=== PATIENT | female | born 1955 | race Caucasian/White ===

== ENCOUNTER 2016-05-05 11:18 | Inpatient (IN) | payer BC ==
[2016-05-04 13:40] VITALS: BMI 22.0
[~2016-05-05] VITALS: Ht 165.1 cm; Wt 64.0 kg
[2016-05-05] VITALS (24 sets, daily range): BP systolic 113–143; BP diastolic 59–79; PULSE 69–97; RESP 7–18; Ht 165.1 cm; Wt 64.0 kg
[~2016-05-05 11:18] MED LIST: ALPR0.5T6 PO; GABA100C14 PO
[2016-05-05] MEDS: LACTATED RINGER'S 1,000 ML IV* SCH ×2 (12:00→21:58)
[2016-05-05] MEDS: Metronidazole 500 MG in NS 100 ML IVPB SCH ×2 (13:00→13:45)
[2016-05-05] MEDS: CIPROFLOXACIN 400 MG in D5W 200 ML IVPB SCH ×2 (13:00→13:45)
[2016-05-05] MEDS ORDERED: MIDAZOLAM 1 MG/ML 2 ML INJ ONE (13:36)
--- NOTE | 2016-05-05 13:46 | EN ---
Date/Time of Note Date/Time of Note DATE: 05/05/16 TIME: 13:45 Event Note Surgery Surgery Event Note The attached H&P note is now current and updated KUMAR ARENAS MD May 05, 2016 13:46
[2016-05-05] MEDS ORDERED: FENTAnyl 50 MCG/ML VIAL IV PRN (15:00)
[2016-05-05] MEDS ORDERED: ONDANSETRON 4 MG INJ IV PRN ×2 (15:00→19:30)
[2016-05-05] MEDS ORDERED: MEPERIDINE 25 MG INJ IV PRN ×2 (15:00→19:30)
[2016-05-05] MEDS ORDERED: DIPHENHYDRAMINE 50 MG INJ IV PRN ×2 (15:00→19:30)
[2016-05-05] MEDS ORDERED: HYDROmorphONE (0.2 MG/ML) 10ML SYG IV PRN ×4 (15:00→19:30)
[2016-05-05] MEDS ORDERED: morphine 10 MG INJ ONE ×2 (16:57→19:08)
[2016-05-05] MEDS ORDERED: PROPOFOL 20 ML ONE (18:49)
[2016-05-05] MEDS ORDERED: GLYCOPYRROLATE 1 MG INJ ONE (18:49)
[2016-05-05] MEDS ORDERED: ONDANSETRON 4 MG INJ ONE (18:49)
[2016-05-05] MEDS ORDERED: NEOSTIGMINE 3 MG/3 ML SYRINGE ONE (18:49)
[2016-05-05] MEDS ORDERED: LIDOCAINE 2% (SDV) 5 ML INJ ONE (18:49)
[2016-05-05] MEDS ORDERED: ROCURONIUM 50 MG INJ ONE (18:49)
[2016-05-05] MEDS: D5W-0.45 NACL + KCL 10 MEQ 1,000 ML IV SCH ×2 (19:14→23:10)
[2016-05-05] MEDS ORDERED: D5W-0.45 NACL + KCL 10 MEQ 1,000 ML IV SCH (19:14)
[2016-05-05] MEDS ORDERED: D5-NS + KCL 20 MEQ 1,000 ML IV SCH (19:14)
[2016-05-05] MEDS ORDERED: CIPROFLOXACIN 400MG/D5W 200 ML IVPB SCH (19:30)
[2016-05-05] MEDS ORDERED: metroNIDAZOLE 500 MG/NS (PMX) 100 ML IVPB SCH (19:30)
[2016-05-05] MEDS ORDERED: LORAZEPAM 2 MG INJ IV PRN (19:30)
[2016-05-05] MEDS ORDERED: HYDROmorphONE 0.2 MG/ML PCA IV SCH (19:30)
[2016-05-05] MEDS ORDERED: NALOXONE (0.4 MG/ML) INJ IV PRN (19:30)
[2016-05-05] MEDS: FENTAnyl 50 MCG/ML VIAL IV PRN ×3 (19:36→20:44)
[2016-05-05 20:26] LABS: HEMATOCRIT 35.1 % (37.0-47.0); HEMOGLOBIN 11.8 g/dl (12.0-16.0)
[2016-05-05 20:46] LABS: CALCIUM 8.4 mg/dl (8.4-10.2); CREATININE 0.46 mg/dl (0.44-1.00); POTASSIUM 3.7 mmol/L (3.5-5.1)
[2016-05-05 21:06] LABS: ADD UMIC YES; URINE BILIRUBIN (Dip) NEGATIVE (NEGATIVE); URINE BLOOD (Dip) 3+ (NEGATIVE); URINE COLOR LT. YELLOW (YELLOW); URINE KETONES (Dip) NEGATIVE (NEGATIVE); URINE LEUKOCYTE ESTERASE (Dip) NEGATIVE (NEGATIVE); URINE NITRITE (Dip) NEGATIVE (NEGATIVE); URINE TOTAL PROTEIN (Dip) NEGATIVE (NEGATIVE); URINE UROBILINOGEN (Dip) 0.2 E.U./dL (0.1-1.0)
[2016-05-05 21:12] LABS: BACTERIA,URINE RARE; SQUAMOUS EPITHELIAL CELL,UR FEW; URINE RBCS >50 /HPF (0)
[2016-05-06] VITALS: BP 107/64; PULSE 91; RESP 16
[2016-05-06] MEDS: CIPROFLOXACIN 400MG/D5W 200 ML IVPB SCH ×2 (00:57→12:43)
[2016-05-06 01:00] VITALS: BP 122/65; PULSE 89; RESP 16
[2016-05-06] MEDS: metroNIDAZOLE 500 MG/NS (PMX) 100 ML IVPB SCH ×3 (02:14→17:40)
[2016-05-06 05:31] LABS: BASOPHILS % 0.1 % (0.0-2.0); EOSINOPHILS % 0.1 % (0.0-7.0); HEMATOCRIT 32.1 % (37.0-47.0); LYMPHOCYTES # 0.4 10^3/ul (0.8-2.9); LYMPHOCYTES % 6.2 % (15.0-51.0); MEAN CORPUSCULAR HEMOGLOBIN 29.9 pg (29.0-33.0); MEAN CORPUSCULAR HGB CONC 34.4 g/dl (32.0-37.0); MEAN CORPUSCULAR VOLUME 86.8 fl (82.0-101.0); MEAN PLATELET VOLUME 7.9 fl (7.4-10.4); MONOCYTE # 0.4 10^3/ul (0.3-0.9); MONOCYTES % 6.8 % (0.0-11.0); NEUTROPHIL # 5.2 10^3/ul (1.6-7.5); NEUTROPHILS % 86.8 % (39.0-77.0); PLATELET COUNT 273 10^3/UL (140-440); RED CELL DISTRIBUTION WIDTH 12.7 % (11.5-14.5)
[2016-05-06 05:40] LABS: INR 1.05; PROTIME 13.7 Sec (12.2-14.2); PT RATIO 1.1
[2016-05-06 05:43] LABS: POTASSIUM 4.8 mmol/L (3.5-5.1)
[2016-05-06 05:45] LABS: CREATININE 0.55 mg/dl (0.44-1.00)
[2016-05-06 05:46] LABS: CALCIUM 8.1 mg/dl (8.4-10.2)
[2016-05-06 05:50] LABS: CONDITION 1
[2016-05-06] MEDS: PANTOPRAZOLE (EC) 40 MG TAB PO SCH (05:50)
--- NOTE | 2016-05-06 07:55 | PN ---
Date/Time of Note Date/Time of Note DATE: 05/06/16 TIME: 07:48 Assessment/Plan VTE Prophylaxis VTE Prophylaxis Intervention: ambulation, anti-embolic stocking, LMWH Lines/Catheters IV Catheter Type (from Nrs): Peripheral IV Urinary Cath still in place: Yes Reason Cath still needed: other (indicate) Assessment/Plan Chief Complaint/Hosp Course S/P surgery for colostomy, colo-vaginal fistula, diverticular disease, and hernia Problems: Assessment/Plan Clear liquids, Out of bed, lovenox Keep the dozier for fluid monitoring and inability to move well with abdominal binder Subjective 24 Hr Interval Summary Free Text/Dictation The pt is alert and oriented this am. Afebrile w/ VSS POD #1 after a complex abdominal surgery ( 5 hrs) with primary anastomosis and complex hernia repair. She denies nausea Exam/Review of Systems Vital Signs Vitals Vital Signs Date Time Temp Pulse Resp B/P Pulse Ox O2 Delivery O2 Flow Rate FiO2 05/06/16 05:00 16 05/06/16 01:00 98.6 89 122/65 100 Nasal Cannula 05/05/16 21:00 2.0 Intake and Output 05/05/16 05/05/16 05/06/16 15:00 23:00 07:00 Intake Total 300 ml 1200 ml 800 ml Output Total 1100 ml 500 ml Balance 300 ml 100 ml 300 ml Exam Constitutional: alert, oriented Gastrointestinal: soft Additional Comments Abdomen is tender, and binder is intact, Some serous drainage. Quiet. Results Result Diagram: 05/06/16 0432 05/06/16 0431 Results 24 hrs Laboratory Tests Test 05/05/16 18:40 05/05/16 19:45 05/06/16 04:31 05/06/16 04:32 Urine Bacteria RARE Urine Bilirubin NEGATIVE Urine Clarity SLIGHTLY CLOUDY Urine Color LT. YELLOW Urine Glucose 0.25% H Urine Hemoglobin 3+ H Urine Ketones NEGATIVE Urine Leukocyte Esterase NEGATIVE Urine Microscopic RBC >50 Urine Microscopic WBC 0-2 Urine Nitrite NEGATIVE Urine Specific [place] 1.025 Urine Squamous Epithelial Cells FEW Urine Total Protein NEGATIVE Urine Urobilinogen 0.2 E.U./dL Urine pH 6.0 Anion Gap 16 13 Blood Urea Nitrogen 8 7 Calcium Level 8.4 8.1 L Carbon Dioxide Level 23 28 Chloride Level 105 101 Creatinine 0.46 0.55 Glucose Level 143 164 Hematocrit 35.1 L 32.1 L Hemoglobin 11.8 L 11.0 L Platelet Count 309 273 Potassium Level 3.7 4.8 Sodium Level 140 137 INR International Normalized Ratio 1.05 Prothrombin Time 13.7 Prothrombin Time Ratio 1.1 Basophils # 0.0 Basophils % 0.1 Eosinophils # 0.0 Eosinophils % 0.1 Lymphocytes # 0.4 L Lymphocytes % 6.2 L Mean Corpuscular Hemoglobin 29.9 Mean Corpuscular Hemoglobin Concent 34.4 Mean Corpuscular Volume 86.8 Mean Platelet Volume 7.9 Monocytes # 0.4 Monocytes % 6.8 Neutrophils # 5.2 Neutrophils % 86.8 H Nucleated Red Blood Cells # 0.0 Nucleated Red Blood Cells % 0.0 Red Blood Count 3.70 L Red Cell Distribution Width 12.7 White Blood Count 6.0 # Medications Medications Current Medications Diphenhydramine HCl (Benadryl) 25 mg Q6H PRN IV ITCHING; Start 05/05/16 at 19: 30 Ondansetron HCl (Zofran Inj) 4 mg Q6H PRN IV NAUSEA AND/OR VOMITING; Start at 19:30 Pantoprazole 40 mg 40 mg DAILY@06 PO Last administered on 05/06/16 05:50; Admin Dose 40 MG; Start 05/06/16 at 06:00 Potassium Chloride/Dextrose/ Sod Cl (D5-1/2ns + KCl 10 Meq) 1,000 ml @ 125 mls/ hr Q8H IV Last administered on 05/05/16 23:10; Admin Dose 125 MLS/HR; Start at 19:14 Naloxone HCl (Narcan) 0.2 mg Q2M PRN IV RR 8 BREATHS/MIN OR LESS; Start at 19:30 Hydromorphone HCl (Dilaudid USABILITY SPECIALIST) 0.2 mg Q4PCA IV Last administered on 20:25; Admin Dose 6 MG; Start 05/05/16 at 19:30 Lorazepam 0.5 mg 0.5 mg Q6H PRN IV AGITATION; Start 05/05/16 at 19:30 Ciprofloxacin/ Dextrose 200 ml @ 200 mls/hr Q12H IVPB Last administered on 00:57; Admin Dose 200 MLS/HR; Start 05/06/16 at 01:00; Stop 05/06/16 at 13:59 Metronidazole (Flagyl 500 Mg (Pmx)) 100 ml @ 100 mls/hr Q8H IVPB Last administered on 05/06/16t 02:14; Admin Dose 100 MLS/HR; Start 05/06/16 at 02:00 ; Stop 05/06/16 at 18:59 KUMAR ARENAS MD May 06, 2016 07:55
[2016-05-06 09:00] VITALS: BP 115/63; RESP 18
[2016-05-06] MEDS: D5W-0.45 NACL + KCL 10 MEQ 1,000 ML IV SCH ×2 (10:05→21:03)
[2016-05-06] MEDS: HYDROmorphONE 0.2 MG/ML PCA IV SCH (10:32)
[2016-05-06 14:16] LABS: HEMATOCRIT 29.8 % (37.0-47.0); HEMOGLOBIN 10.1 g/dl (12.0-16.0)
[2016-05-06 19:00] VITALS: BP 121/61; RESP 18
[2016-05-07] MEDS: HYDROmorphONE 0.2 MG/ML PCA IV SCH ×2 (00:26→17:11)
[2016-05-07] MEDS: D5W-0.45 NACL + KCL 10 MEQ 1,000 ML IV SCH ×4 (03:14→20:13)
[2016-05-07] MEDS: PANTOPRAZOLE (EC) 40 MG TAB PO SCH (05:27)
[2016-05-07 05:37] LABS: BASOPHILS % 0.3 % (0.0-2.0); EOSINOPHILS % 0.1 % (0.0-7.0); HEMATOCRIT 28.1 % (37.0-47.0); HEMOGLOBIN 9.7 g/dl (12.0-16.0); LYMPHOCYTES # 1.1 10^3/ul (0.8-2.9); LYMPHOCYTES % 10.5 % (15.0-51.0); MEAN CORPUSCULAR HEMOGLOBIN 30.1 pg (29.0-33.0); MEAN CORPUSCULAR HGB CONC 34.5 g/dl (32.0-37.0); MEAN CORPUSCULAR VOLUME 87.1 fl (82.0-101.0); MEAN PLATELET VOLUME 7.9 fl (7.4-10.4); MONOCYTE # 0.7 10^3/ul (0.3-0.9); MONOCYTES % 6.4 % (0.0-11.0); NEUTROPHIL # 8.7 10^3/ul (1.6-7.5); NEUTROPHILS % 82.7 % (39.0-77.0); PLATELET COUNT 247 10^3/UL (140-440); RED BLOOD COUNT 3.22 10^6/ul (4.20-5.40); RED CELL DISTRIBUTION WIDTH 12.9 % (11.5-14.5); UNCORRECTED WBC 10.5 10^3/ul (4.8-10.8); WHITE BLOOD COUNT 10.5 10^3/ul (4.8-10.8)
[2016-05-07 06:05] LABS: POTASSIUM 3.6 mmol/L (3.5-5.1)
[2016-05-07 06:33] LABS: CONDITION 1
[2016-05-07 09:03] VITALS: BP 116/68; RESP 20
--- NOTE | 2016-05-07 10:03 | PN ---
Date/Time of Note Date/Time of Note DATE: 05/07/16 TIME: 09:55 Assessment/Plan VTE Prophylaxis VTE Prophylaxis Intervention: SCD's VTE Contraindication Reason: bleeding Lines/Catheters IV Catheter Type (from Nrsg): Peripheral IV Urinary Cath still in place: Yes Reason Cath still needed: other (indicate) Assessment/Plan Chief Complaint/Hosp Course S/P surgery for colostomy, colo-vaginal fistula, diverticular disease, and hernia Problems: Assessment/Plan Holding lovenox for now, but will check H/H at 1400. Will ambulate carefully today and encouraged more clear liq intake Keep catheter till ambulating better Subjective 24 Hr Interval Summary Free Text/Dictation Pain is better. Complains of some heartburn, but no nausea. No flatus. Tolerating sips of liquids Less drainiage from wound Constitutional: No chills, No diaphoresis, No disoriented, No febrile, No improved, No no complaints, No other, No poor po, No requiring IVF, No requiring O2 Respiratory: No cough, No no complaints, No other, No pain, No pleuritic pain, No shortness of breath, No sputum, No wheezing Exam/Review of Systems Vital Signs Vitals Vital Signs Date Time Temp Pulse Resp B/P Pulse Ox O2 Delivery O2 Flow Rate FiO2 05/07/16 09:03 98.9 102 20 116/68 98 05/07/16 08:00 Nasal Cannula 2.0 Intake and Output 05/06/16 05/06/16 05/07/16 15:00 23:00 07:00 Intake Total 100 ml 1375 ml 2200 ml Output Total 900 ml Balance 100 ml 475 ml 2200 ml Exam Abdomen is soft, but quiet, Occ bowel sound. Incision is dry thia am, and w/o erythema, or edema. Changed dressing and reapplied the binder. Gastrointestinal: No ascites, No bowel sounds, No distended, No firm, No hepatomegaly, No mass, No nl liver, spleen, No non-tender, No other, No rebound or guarding, No soft, No splenomegaly, No surgical scars, No tender Results Result Diagram: 05/07/1643905/07/16439 Results 24 hrs Laboratory Tests Test 05/06/16 14:00 05/07/16 04:40 Hematocrit 29.8 L 28.1 L Hemoglobin 10.1 L 9.7 L Anion Gap 10 Basophils # 0.0 Basophils % 0.3 Carbon Dioxide Level 30 Chloride Level 98 Eosinophils # 0.0 Eosinophils % 0.1 Lymphocytes # 1.1 Lymphocytes % 10.5 L Mean Corpuscular Hemoglobin 30.1 Mean Corpuscular Hemoglobin Concent 34.5 Mean Corpuscular Volume 87.1 Mean Platelet Volume 7.9 Monocytes # 0.7 Monocytes % 6.4 Neutrophils # 8.7 H Neutrophils % 82.7 H Nucleated Red Blood Cells # 0.0 Nucleated Red Blood Cells % 0.0 Platelet Count 247 Potassium Level 3.6 Red Blood Count 3.22 L Red Cell Distribution Width 12.9 Sodium Level 134 L White Blood Count 10.5 # Medications Medications Current Medications Diphenhydramine HCl (Benadryl) 25 mg Q6H PRN IV ITCHING; Start 05/05/16 at 19: 30 Ondansetron HCl (Zofran Inj) 4 mg Q6H PRN IV NAUSEA AND/OR VOMITING; Start at 19:30 Pantoprazole 40 mg 40 mg DAILY@06 PO Last administered on 05/07/16 05:27; Admin Dose 40 MG; Start 05/06/16 at 06:00 Potassium Chloride/Dextrose/ Sod Cl (D5-1/2ns + KCl 10 Meq) 1,000 ml @ 125 mls/ hr Q8H IV Last administered on 05/06/16 21:03; Admin Dose 125 MLS/HR; Start at 19:14 Naloxone HCl (Narcan) 0.2 mg Q2M PRN IV RR 8 BREATHS/MIN OR LESS; Start at 19:30 Lorazepam (Ativan) 0.5 mg Q6H PRN IV AGITATION; Start 05/05/16 at 19:30 Enoxaparin Sodium (Lovenox) 30 mg DAILY SC ; Start 05/06/16 at 16:00; Stop 05/10 at 15:59; Status Future Hold Hydromorphone HCl (Dilaudid PER DIEM PHYSICAL THERAPIST ASSISTANT) 0 MG/HR CONTINUOUS RATE ... Q4PCA IV Last administered on 05/07/16 00:26; Admin Dose 6 MG; Start 05/06/16 at 10:30 KUMAR ARENAS MD May 07, 2016 10:02
[2016-05-07] MEDS: ENOXAPARIN 30 MG/0.3 ML SYG SC SCH (17:12)
[2016-05-07 19:00] VITALS: BP 124/65; RESP 18
[2016-05-07] MEDS: LORAZEPAM 2 MG INJ IV PRN (21:26)
[2016-05-08] MEDS: PANTOPRAZOLE (EC) 40 MG TAB PO SCH (05:23)
[2016-05-08 06:44] LABS: BASOPHILS % 0.4 % (0.0-2.0); EOSINOPHILS % 0.3 % (0.0-7.0); HEMATOCRIT 27.3 % (37.0-47.0); HEMOGLOBIN 9.4 g/dl (12.0-16.0); LYMPHOCYTES # 0.9 10^3/ul (0.8-2.9); MEAN CORPUSCULAR HGB CONC 34.4 g/dl (32.0-37.0); MEAN PLATELET VOLUME 7.9 fl (7.4-10.4); MONOCYTE # 0.5 10^3/ul (0.3-0.9); MONOCYTES % 6.4 % (0.0-11.0); NEUTROPHIL # 7.1 10^3/ul (1.6-7.5); NEUTROPHILS % 81.9 % (39.0-77.0); PLATELET COUNT 277 10^3/UL (140-440); RED BLOOD COUNT 3.13 10^6/ul (4.20-5.40); RED CELL DISTRIBUTION WIDTH 13.2 % (11.5-14.5); UNCORRECTED WBC 8.6 10^3/ul (4.8-10.8); WHITE BLOOD COUNT 8.6 10^3/ul (4.8-10.8)
[2016-05-08 06:59] LABS: POTASSIUM 3.4 mmol/L (3.5-5.1)
[2016-05-08 07:03] LABS: CONDITION 1
[2016-05-08 07:43] VITALS: BP 124/76; RESP 19
--- NOTE | 2016-05-08 08:49 | PN ---
Date/Time of Note Date/Time of Note DATE: 05/08/16 TIME: 08:43 Assessment/Plan VTE Prophylaxis VTE Prophylaxis Intervention: ambulation, LMWH, SCD's Lines/Catheters IV Catheter Type (from Nrsg): Peripheral IV Urinary Cath still in place: No Assessment/Plan Chief Complaint/Hosp Course 61YO Woman h/o diverticulitis, multiple operations now s/p takedown of transverse loop colostomy, reversal of Rubi, mesh repair of hernia now POD3. Doing OK, tolerating some clears, ambulating with assistance, voiding on her own. Having abd pain, reasonably controlled with WOUND SPECIALIST. No F/C/CP/SOB. Mildly tachy, nursing reports desat to 92-94, improved to 100 with 2L NC. Tachy likely due to anemia/pain, desat likely due to narcotics. Will get LEVD. Start Toradol for pain. Continue ambulation, SCD/Lovenox for DVT PPX, continue PT, wound care with gauze and abd pad. D/W Dr. Prakash. Problems: Subjective 24 Hr Interval Summary Constitutional: other (Pt reports some abd pain, some nausea overnight but OK now, tolerating a little clears, been OOB, no BM/F) Respiratory: no complaints Cardiovascular: no complaints Gastrointestinal: pain Exam/Review of Systems Vital Signs Vitals Vital Signs Date Time Temp Pulse Resp B/P Pulse Ox O2 Delivery O2 Flow Rate FiO2 05/08/16 07:43 98.0 72 19 124/76 94 05/07/16 21:39 Nasal Cannula 2.0 Intake and Output 05/07/16 05/07/16 05/08/16 15:00 23:00 07:00 Intake Total 2630 ml 1900 ml Output Total 1800 ml Balance 830 ml 1900 ml Exam Constitutional: alert, oriented Respiratory: clear to auscultation Cardiovascular: regular rate and rhythm Gastrointestinal: soft (Appropriately TTP, wound C/D/I, mild dessication in midline, no signs of dehiscence/infection) Results Result Diagram: 05/08/16 0500 05/08/16 0440 Results 24 hrs Laboratory Tests Test 05/07/16 13:50 05/08/16 04:40 05/08/16 05:00 Hematocrit 26.9 L 27.3 L Anion Gap 11 Carbon Dioxide Level 32 H Chloride Level 98 Potassium Level 3.4 L Sodium Level 138 Basophils # 0.0 Basophils % 0.4 Eosinophils # 0.0 Eosinophils % 0.3 Hemoglobin 9.4 L Lymphocytes # 0.9 Lymphocytes % 11.0 L Mean Corpuscular Hemoglobin 30.0 Mean Corpuscular Hemoglobin Concent 34.4 Mean Corpuscular Volume 87.0 Mean Platelet Volume 7.9 Monocytes # 0.5 Monocytes % 6.4 Neutrophils # 7.1 Neutrophils % 81.9 H Nucleated Red Blood Cells # 0.0 Nucleated Red Blood Cells % 0.0 Platelet Count 277 Red Blood Count 3.13 L Red Cell Distribution Width 13.2 White Blood Count 8.6 Medications Medications Current Medications Diphenhydramine HCl (Benadryl) 25 mg Q6H PRN IV ITCHING; Start 05/05/16 at 19: 30 Ondansetron HCl (Zofran Inj) 4 mg Q6H PRN IV NAUSEA AND/OR VOMITING; Start at 19:30 Pantoprazole 40 mg 40 mg DAILY@06 PO Last administered on 05/08/16 05:23; Admin Dose 40 MG; Start 05/06/16 at 06:00 Potassium Chloride/Dextrose/ Sod Cl (D5-1/2ns + KCl 10 Meq) 1,000 ml @ 125 mls/ hr Q8H IV Last administered on 05/07/16 20:13; Admin Dose 125 MLS/HR; Start at 19:14 Naloxone HCl (Narcan) 0.2 mg Q2M PRN IV RR 8 BREATHS/MIN OR LESS; Start at 19:30 Lorazepam (Ativan) 0.5 mg Q6H PRN IV AGITATION; Start 05/05/16 at 19:30 Enoxaparin Sodium (Lovenox) 30 mg DAILY SC Last administered on 05/07/16 17:12 ; Admin Dose 30 MG; Start 05/06/16 at 16:00; Stop 05/10/16 at 15:59; Status Future hold Hydromorphone HCl (Dilaudid WOUND SPECIALIST) 0 MG/HR CONTINUOUS RATE ... Q4PCA IV Last administered on 05/07/16 17:11; Admin Dose 6 MG; Start 05/06/16 at 10:30 ROB NGUYEN M.D. May 08, 2016 08:49
[2016-05-08 09:41] LABS: POTASSIUM 3.8 mmol/L (3.5-5.1)
[2016-05-08 09:43] LABS: CREATININE 0.5 mg/dl (0.44-1.00)
[2016-05-08 09:44] LABS: CALCIUM 8.7 mg/dl (8.4-10.2)
--- NOTE | 2016-05-08 10:15 | RADRPT ---
PROCEDURE: US DVT. CLINICAL INDICATION: Evaluate both lower extremities for deep venous thrombosis.. TECHNIQUE: Multiple longitudinal and transverse images of the bilateral lower extremity veins were obtained with valdivia scale and color Doppler imaging. 2D grayscale measurements with compression, co nelly Doppler flow, and augmentation was performed. The calf veins were interrogated as well. COMPARISON: No prior studies are available for comparison. FINDINGS: The bilateral common femoral, superficial femoral and popliteal veins are normally compressible thro ughout. Color flow demonstrates normal filling of the vessel. Normal waveforms are visualized and there is normal response to augmentation. The calf veins are visualized and are equally unremarkabl e. IMPRESSION: 1. No evidence of a deep vein thrombosis involving either lower extremity. RPTAT: [facility] Physician Meghan Date Time Electronically viewed and signed by Physician Meghan on 05/08/2016 10:15 /
[2016-05-08] MEDS: D5W-0.45 NACL + KCL 10 MEQ 1,000 ML IV SCH ×3 (11:14→22:35)
[2016-05-08] MEDS: ONDANSETRON 4 MG INJ IV PRN (12:04)
[2016-05-08] MEDS: KETOROLAC 15 MG INJ IV PRN ×2 (13:09→18:33)
[2016-05-08 19:30] VITALS: BP 123/77; RESP 18
[2016-05-09] MEDS: HYDROmorphONE 0.2 MG/ML PCA IV SCH (01:42)
[2016-05-09] MEDS: PANTOPRAZOLE (EC) 40 MG TAB PO SCH (06:33)
[2016-05-09 06:37] LABS: BASOPHILS % 0.1 % (0.0-2.0); EOSINOPHILS % 0.6 % (0.0-7.0); HEMOGLOBIN 9.4 g/dl (12.0-16.0); LYMPHOCYTES # 0.7 10^3/ul (0.8-2.9); LYMPHOCYTES % 10.6 % (15.0-51.0); MEAN CORPUSCULAR HEMOGLOBIN 30.7 pg (29.0-33.0); MEAN CORPUSCULAR HGB CONC 36.1 g/dl (32.0-37.0); MEAN CORPUSCULAR VOLUME 84.9 fl (82.0-101.0); MEAN PLATELET VOLUME 7.6 fl (7.4-10.4); MONOCYTE # 0.5 10^3/ul (0.3-0.9); MONOCYTES % 7.8 % (0.0-11.0); NEUTROPHIL # 5.3 10^3/ul (1.6-7.5); NEUTROPHILS % 80.9 % (39.0-77.0); PLATELET COUNT 334 10^3/UL (140-440); RED BLOOD COUNT 3.06 10^6/ul (4.20-5.40); RED CELL DISTRIBUTION WIDTH 12.9 % (11.5-14.5); UNCORRECTED WBC 6.6 10^3/ul (4.8-10.8); WHITE BLOOD COUNT 6.6 10^3/ul (4.8-10.8)
[2016-05-09 06:40] LABS: POTASSIUM 3.7 mmol/L (3.5-5.1)
[2016-05-09] MEDS: ONDANSETRON 4 MG INJ IV PRN ×2 (06:45→16:54)
[2016-05-09] MEDS: D5W-0.45 NACL + KCL 10 MEQ 1,000 ML IV SCH (06:46)
[2016-05-09 06:48] LABS: POTASSIUM 3.7 mmol/L (3.5-5.1)
[2016-05-09 06:51] LABS: CREATININE 0.54 mg/dl (0.44-1.00)
[2016-05-09 06:52] LABS: CALCIUM 8.2 mg/dl (8.4-10.2)
[2016-05-09 06:56] LABS: CONDITION 1
[2016-05-09 07:22] VITALS: BP 135/73; RESP 20
[2016-05-09] MEDS: ENOXAPARIN 30 MG/0.3 ML SYG SC SCH (08:20)
[2016-05-09] MEDS: KETOROLAC 15 MG INJ IV PRN ×3 (10:31→22:26)
--- NOTE | 2016-05-09 11:27 | PN ---
Date/Time of Note Date/Time of Note DATE: 05/09/16 TIME: 11:25 Assessment/Plan VTE Prophylaxis VTE Prophylaxis Intervention: ambulation, LMWH Lines/Catheters IV Catheter Type (from Nrs): Peripheral IV Urinary Cath still in place: No Assessment/Plan Chief Complaint/Hosp Course S/P surgery for colostomy, colo-vaginal fistula, diverticular disease, and hernia Problems: Assessment/Plan Will DC FURNITURE SANDER and start oral pain meds. Increase ambulation, reduce IV fluids Subjective 24 Hr Interval Summary Free Text/Dictation The pt is stable, both vitals, CBC. She complains of some nausea, likely due to FURNITURE SANDER. Has passed some flatus. Tolerating some liquids Exam/Review of Systems Vital Signs Vitals Vital Signs Date Time Temp Pulse Resp B/P Pulse Ox O2 Delivery O2 Flow Rate FiO2 05/09/16 09:00 16 05/09/16 08:21 98.4 05/09/16 07:22 89 135/73 95 05/08/16 20:50 Nasal Cannula 2.0 Intake and Output 05/08/16 05/08/16 05/09/16 15:00 23:00 07:00 Intake Total 1770 ml 420 ml Output Total 750 ml 850 ml Balance 1020 ml -430 ml Results Result Diagram: 05/09/16 0535 05/09/16 0535 Results 24 hrs Laboratory Tests Test 05/09/16 05:35 Anion Gap 10 Basophils # 0.0 Basophils % 0.1 Blood Urea Nitrogen 7 Calcium Level 8.2 L Carbon Dioxide Level 31 Chloride Level 99 Creatinine 0.54 Eosinophils # 0.0 Eosinophils % 0.6 Glucose Level 153 Hematocrit 26.0 L Hemoglobin 9.4 L Lymphocytes # 0.7 L Lymphocytes % 10.6 L Mean Corpuscular Hemoglobin 30.7 Mean Corpuscular Hemoglobin Concent 36.1 Mean Corpuscular Volume 84.9 Mean Platelet Volume 7.6 Monocytes # 0.5 Monocytes % 7.8 Neutrophils # 5.3 Neutrophils % 80.9 H Nucleated Red Blood Cells # 0.0 Nucleated Red Blood Cells % 0.0 Platelet Count 334 # Potassium Level 3.7 Red Blood Count 3.06 L Red Cell Distribution Width 12.9 Sodium Level 136 White Blood Count 6.6 # Medications Medications Current Medications Diphenhydramine HCl (Benadryl) 25 mg Q6H PRN IV ITCHING; Start 05/05/16 at 19: 30 Ondansetron HCl (Zofran Inj) 4 mg Q6H PRN IV NAUSEA AND/OR VOMITING Last administered on 05/09/16 06:45; Admin Dose 4 MG; Start 05/05/16 at 19:30 Pantoprazole 40 mg 40 mg DAILY@06 PO Last administered on 05/09/16 06:33; Admin Dose 40 MG; Start 05/06/16 at 06:00 Potassium Chloride/Dextrose/ Sod Cl (D5-1/2ns + KCl 10 Meq) 1,000 ml @ 125 mls/ hr Q8H IV Last administered on 05/09/16 06:46; Admin Dose 125 MLS/HR; Start at 19:14 Naloxone HCl (Narcan) 0.2 mg Q2M PRN IV RR 8 BREATHS/MIN OR LESS; Start at 19:30 Lorazepam (Ativan) 0.5 mg Q6H PRN IV AGITATION; Start 05/05/16 at 19:30 Enoxaparin Sodium (Lovenox) 30 mg DAILY SC Last administered on 05/09/16 08:20 ; Admin Dose 30 MG; Start 05/06/16 at 16:00; Stop 05/10/16 at 15:59; Status Future hold Ketorolac Tromethamine (Toradol) 15 mg Q6H PRN IV PAIN Last administered on 10:31; Admin Dose 15 MG; Start 05/08/16 at 09:00; Stop 05/11/16 at 08:59 Oxycodone/ Acetaminophen (Percocet (5/ 325)) 1 tab Q4H PRN PO PAIN; Start 05/09 at 11:30; Status UNV KUMAR ARENAS MD May 09, 2016 11:27
[2016-05-09] MEDS: OXYCODONE/ACETAMINOPHEN (5/325) TAB PO PRN ×3 (11:34→19:35)
[2016-05-09] MEDS: POTASSIUM CHLORIDE 10 MEQ in SOD CHLORIDE 0.45% 1,000 ML IV SCH (12:12)
[2016-05-09 19:20] VITALS: BP 126/74; RESP 20
[2016-05-09] MEDS: METOCLOPRAMIDE 10 MG INJ IV PRN (20:36)
[2016-05-09] MEDS: HYDROmorphONE 1 MG/ML SYG IV PRN (20:58)
[2016-05-10] MEDS: POTASSIUM CHLORIDE 10 MEQ in SOD CHLORIDE 0.45% 1,000 ML IV SCH ×2 (01:39→17:21)
[2016-05-10] MEDS: PANTOPRAZOLE (EC) 40 MG TAB PO SCH (05:33)
[2016-05-10] MEDS: KETOROLAC 15 MG INJ IV PRN ×2 (05:33→14:20)
[2016-05-10 07:25] VITALS: BP 117/64; RESP 20
[2016-05-10] MEDS: OXYCODONE/ACETAMINOPHEN (5/325) TAB PO PRN ×3 (07:58→17:57)
[2016-05-10] MEDS: ENOXAPARIN 30 MG/0.3 ML SYG SC SCH (09:30)
[2016-05-10] MEDS: HYDROmorphONE 1 MG/ML SYG IV PRN ×2 (09:56→19:34)
--- NOTE | 2016-05-10 13:16 | PN ---
Date/Time of Note Date/Time of Note DATE: 05/10/16 TIME: 13:08 Assessment/Plan VTE Prophylaxis VTE Prophylaxis Intervention: ambulation, anti-embolic stocking, LMWH Lines/Catheters IV Catheter Type (from Nrs): Peripheral IV Urinary Cath still in place: No Assessment/Plan Chief Complaint/Hosp Course S/P surgery for colostomy, colo-vaginal fistula, diverticular disease, and hernia Problems: Assessment/Plan The pt is slowly resolving her ileus. We will increase the ambulation and add some soft food Subjective 24 Hr Interval Summary Free Text/Dictation The pt is now POD #5, is afebrile, passing a little gas. She tolerates small volumes of full liquids, She is ambulating well She still c/o [pain but the pain meds are working. Nausea is better controlled on Regaln Skin: No bruising, No laceration, No no complaints, No other, No pruritis, No rash, No skin lesions Exam/Review of Systems Vital Signs Vitals Vital Signs Date Time Temp Pulse Resp B/P Pulse Ox O2 Delivery O2 Flow Rate FiO2 05/10/16 07:25 98.9 90 20 117/64 95 05/08/16 20:50 Nasal Cannula 2.0 Intake and Output 05/09/16 05/09/16 05/10/16 15:00 23:00 07:00 Intake Total 2495 ml 720 ml Balance 2495 ml 720 ml Exam Constitutional: alert, oriented Gastrointestinal: bowel sounds (a few bowel sounds), soft, surgical scars, tender (appropriate) Neurological: LEARNING SUPPORT SERVICES DIRECTOR II-XII intact Additional Comments Incision is clean and w/o erythema. There is a small amt of skin necrosis in the center Results Result Diagram: 05/09/16 0535 05/09/16 0535 Medications Medications Current Medications Diphenhydramine HCl (Benadryl) 25 mg Q6H PRN IV ITCHING; Start 05/05/16 at 19: 30 Ondansetron HCl (Zofran Inj) 4 mg Q6H PRN IV NAUSEA AND/OR VOMITING Last administered on 05/09/16 16:54; Admin Dose 4 MG; Start 05/05/16 at 19:30 Pantoprazole (Protonix Tab) 40 mg DAILY@06 PO Last administered on 05/10/16 05 :33; Admin Dose 40 MG; Start 05/06/16 at 06:00 Naloxone HCl (Narcan) 0.2 mg Q2M PRN IV RR 8 BREATHS/MIN OR LESS; Start at 19:30 Lorazepam (Ativan) 0.5 mg Q6H PRN IV AGITATION; Start 05/05/16 at 19:30 Enoxaparin Sodium (Lovenox) 30 mg DAILY SC Last administered on 05/10/16 09:30 ; Admin Dose 30 MG; Start 05/06/16 at 16:00; Stop 05/10/16 at 15:59; Status Future hold Ketorolac Tromethamine (Toradol) 15 mg Q6H PRN IV PAIN Last administered on 05:33; Admin Dose 15 MG; Start 05/08/16 at 09:00; Stop 05/11/16 at 08:59 Oxycodone/ Acetaminophen 1 tab 1 tab Q4H PRN PO PAIN Last administered on 13:06; Admin Dose 1 TAB; Start 05/09/16 at 11:30 Potassium Chloride/Sodium Chloride (KCl/1/2 NS) 1,005 ml @ 75 mls/hr [id number] IV Last administered on 05/10/16 01:39; Admin Dose 75 MLS/HR; Start 05/09/16 at 12:30 Metoclopramide HCl (Reglan) 10 mg Q6H PRN IV NAUSEA Last administered on 20:36; Admin Dose 10 MG; Start 05/09/16 at 20:30 Hydromorphone HCl (Dilaudid) 0.4 mg Q6H PRN IV PAIN Last administered on 09:56; Admin Dose 0.4 MG; Start 05/09/16 at 20:30 KUMAR ARENAS MD May 10, 2016 13:15
[2016-05-10] MEDS: METOCLOPRAMIDE 10 MG INJ IV PRN (13:55)
[2016-05-10] MEDS: ONDANSETRON 4 MG INJ IV PRN ×2 (18:05→22:29)
[2016-05-10 20:56] VITALS: BP 133/75; RESP 17
[2016-05-11] MEDS: KETOROLAC 15 MG INJ IV PRN (00:07)
[2016-05-11] MEDS: LORAZEPAM 2 MG INJ IV PRN (01:13)
[2016-05-11 05:23] LABS: POTASSIUM 3.5 mmol/L (3.5-5.1)
[2016-05-11 05:26] LABS: BASOPHILS % 0.3 % (0.0-2.0); EOSINOPHILS # 0.1 10^3/ul (0.0-0.5); EOSINOPHILS % 1.5 % (0.0-7.0); HEMATOCRIT 27.3 % (37.0-47.0); HEMOGLOBIN 9.6 g/dl (12.0-16.0); LYMPHOCYTES # 1.1 10^3/ul (0.8-2.9); LYMPHOCYTES % 14.5 % (15.0-51.0); MEAN CORPUSCULAR HEMOGLOBIN 29.7 pg (29.0-33.0); MEAN CORPUSCULAR HGB CONC 35.1 g/dl (32.0-37.0); MEAN CORPUSCULAR VOLUME 84.6 fl (82.0-101.0); MEAN PLATELET VOLUME 7.3 fl (7.4-10.4); MONOCYTE # 0.8 10^3/ul (0.3-0.9); MONOCYTES % 10.3 % (0.0-11.0); NEUTROPHIL # 5.4 10^3/ul (1.6-7.5); NEUTROPHILS % 73.4 % (39.0-77.0); PLATELET COUNT 433 10^3/UL (140-440); RED BLOOD COUNT 3.22 10^6/ul (4.20-5.40); RED CELL DISTRIBUTION WIDTH 12.7 % (11.5-14.5); UNCORRECTED WBC 7.3 10^3/ul (4.8-10.8); WHITE BLOOD COUNT 7.3 10^3/ul (4.8-10.8)
[2016-05-11 05:54] LABS: CONDITION 1
[2016-05-11] MEDS: POTASSIUM CHLORIDE 10 MEQ in SOD CHLORIDE 0.45% 1,000 ML IV SCH ×2 (06:05→18:59)
[2016-05-11] MEDS: PANTOPRAZOLE (EC) 40 MG TAB PO SCH (06:05)
[2016-05-11] MEDS: HYDROmorphONE 1 MG/ML SYG IV PRN ×3 (06:06→18:45)
[2016-05-11 07:45] VITALS: BP 130/78; RESP 20
[2016-05-11] MEDS: OXYCODONE/ACETAMINOPHEN (5/325) TAB PO PRN ×4 (10:25→23:50)
--- NOTE | 2016-05-11 13:28 | PN ---
Date/Time of Note Date/Time of Note DATE: 05/11/16 TIME: 13:19 Assessment/Plan VTE Prophylaxis VTE Prophylaxis Intervention: ambulation, LMWH Lines/Catheters IV Catheter Type (from Nrs): Peripheral IV Urinary Cath still in place: No Assessment/Plan Chief Complaint/Hosp Course S/P surgery for colostomy, colo-vaginal fistula, diverticular disease, and hernia Problems: Assessment/Plan Advised that the pt avoid carbonation. Will add Miralax Subjective 24 Hr Interval Summary Free Text/Dictation POD #6. Pt is alert and oriented. VSS. Passing a little mor flatus. and poss some liquid. Still complaining of abdominal pain w/ cramps and muscle pain. Complains also of nausea. Heartburn w/ carbonation and some juice. Labs are normal. Gastrointestinal: decreased appetite, flatus, nausea, other (complains of cramps), pain Genitourinary: no complaints Exam/Review of Systems Vital Signs Vitals Vital Signs Date Time Temp Pulse Resp B/P Pulse Ox O2 Delivery O2 Flow Rate FiO2 05/11/16 07:45 98.9 101 20 130/78 95 05/10/16 08:00 Nasal Cannula 2.0 Intake and Output 05/10/16 05/10/16 05/11/16 15:00 23:00 07:00 Intake Total 1340 ml 1250 ml Balance 1340 ml 1250 ml Results Result Diagram: 05/11/16 0430 05/11/16 0430 Results 24 hrs Laboratory Tests Test 05/11/16 04:30 Anion Gap 14 Basophils # 0.0 Basophils % 0.3 Blood Morphology Comment Carbon Dioxide Level 29 Chloride Level 99 Eosinophils # 0.1 Eosinophils % 1.5 Hematocrit 27.3 L Hemoglobin 9.6 L Lymphocytes # 1.1 Lymphocytes % 14.5 L Mean Corpuscular Hemoglobin 29.7 Mean Corpuscular Hemoglobin Concent 35.1 Mean Corpuscular Volume 84.6 Mean Platelet Volume 7.3 L Monocytes # 0.8 Monocytes % 10.3 Neutrophils # 5.4 Neutrophils % 73.4 Nucleated Red Blood Cells # 0.0 Nucleated Red Blood Cells % 0.0 Platelet Count 433 # Potassium Level 3.5 Red Blood Count 3.22 L Red Cell Distribution Width 12.7 Sodium Level 138 White Blood Count 7.3 Medications Medications Current Medications Diphenhydramine HCl (Benadryl) 25 mg Q6H PRN IV ITCHING; Start 05/05/16 at 19: 30 Ondansetron HCl (Zofran Inj) 4 mg Q6H PRN IV NAUSEA AND/OR VOMITING Last administered on 05/10/16 22:29; Admin Dose 4 MG; Start 05/05/16 at 19:30 Pantoprazole (Protonix Tab) 40 mg DAILY@06 PO Last administered on 05/11/16 06 :05; Admin Dose 40 MG; Start 05/06/16 at 06:00 Naloxone HCl (Narcan) 0.2 mg Q2M PRN IV RR 8 BREATHS/MIN OR LESS; Start at 19:30 Lorazepam (Ativan) 0.5 mg Q6H PRN IV AGITATION; Start 05/05/16 at 19:30 Oxycodone/ Acetaminophen 1 tab 1 tab Q4H PRN PO PAIN Last administered on 10:25; Admin Dose 1 TAB; Start 05/09/16 at 11:30 Potassium Chloride/Sodium Chloride (KCl/1/2 NS) 1,005 ml @ 75 mls/hr [id number] IV Last administered on 05/11/16 06:05; Admin Dose 75 MLS/HR; Start 05/09/16 at 12:30 Metoclopramide HCl (Reglan) 10 mg Q6H PRN IV NAUSEA Last administered on 13:55; Admin Dose 10 MG; Start 05/09/16 at 20:30 Hydromorphone HCl (Dilaudid) 0.4 mg Q6H PRN IV PAIN Last administered on 11:48; Admin Dose 0.4 MG; Start 05/09/16 at 20:30 KUMAR ARENAS MD May 11, 2016 13:28
[2016-05-11] MEDS: POLYETHYLENE GLYCOL 17 GM PACKET GTB SCH (14:35)
[2016-05-11] MEDS: ONDANSETRON 4 MG INJ IV PRN (14:38)
[2016-05-11] MEDS: METOCLOPRAMIDE 10 MG INJ IV PRN (18:59)
[2016-05-11 19:35] VITALS: BP 137/77; RESP 19
[2016-05-12] MEDS: HYDROmorphONE 1 MG/ML SYG IV PRN ×4 (00:58→20:13)
[2016-05-12] MEDS: METOCLOPRAMIDE 10 MG INJ IV PRN ×3 (01:02→14:20)
[2016-05-12] MEDS: PANTOPRAZOLE (EC) 40 MG TAB PO SCH (05:38)
[2016-05-12 05:47] LABS: POTASSIUM 3.4 mmol/L (3.5-5.1)
[2016-05-12 05:49] LABS: ALBUMIN/GLOBULIN RATIO 1.03; BILIRUBIN,INDIRECT 0.2 mg/dl (0-1.1); BILIRUBIN,TOTAL 0.2 mg/dl (0.2-1.3); CREATININE 0.47 mg/dl (0.44-1.00); TOTAL PROTEIN 5.9 g/dl (6.1-8.1)
[2016-05-12 05:50] LABS: CALCIUM 8.5 mg/dl (8.4-10.2)
[2016-05-12 06:18] LABS: BASOPHILS % 0.1 % (0.0-2.0); EOSINOPHILS # 0.1 10^3/ul (0.0-0.5); EOSINOPHILS % 1.2 % (0.0-7.0); HEMATOCRIT 25.7 % (37.0-47.0); HEMOGLOBIN 8.8 g/dl (12.0-16.0); LYMPHOCYTES % 11.5 % (15.0-51.0); MEAN CORPUSCULAR HEMOGLOBIN 29.8 pg (29.0-33.0); MEAN CORPUSCULAR HGB CONC 34.2 g/dl (32.0-37.0); MEAN PLATELET VOLUME 7.3 fl (7.4-10.4); MONOCYTE # 0.8 10^3/ul (0.3-0.9); MONOCYTES % 10.1 % (0.0-11.0); NEUTROPHIL # 6.5 10^3/ul (1.6-7.5); NEUTROPHILS % 77.1 % (39.0-77.0); PLATELET COUNT 432 10^3/UL (140-440); RED BLOOD COUNT 2.96 10^6/ul (4.20-5.40); RED CELL DISTRIBUTION WIDTH 13.1 % (11.5-14.5); UNCORRECTED WBC 8.4 10^3/ul (4.8-10.8); WHITE BLOOD COUNT 8.4 10^3/ul (4.8-10.8)
[2016-05-12 06:52] LABS: CONDITION 1
[2016-05-12 07:19] VITALS: BP 121/60; RESP 19
[2016-05-12] MEDS: POLYETHYLENE GLYCOL 17 GM PACKET GTB SCH (08:18)
[2016-05-12] MEDS: POTASSIUM CHLORIDE 10 MEQ in SOD CHLORIDE 0.45% 1,000 ML IV SCH (08:18)
[2016-05-12] MEDS: OXYCODONE/ACETAMINOPHEN (5/325) TAB PO PRN ×2 (08:42→13:07)
[2016-05-12] MEDS: ONDANSETRON 4 MG INJ IV PRN (08:47)
[2016-05-12] MEDS ORDERED: POTASSIUM CHLORIDE 10 MEQ in SOD CHLORIDE 0.9% 100 ML IV SCH (12:30)
--- NOTE | 2016-05-12 13:04 | OPR ---
DATE OF OPERATION: 05/05/2016 INDICATIONS: The patient is a 61-year-old female who presented to my office a month ago. She has had 5 prior abdominal surgeries, all for diverticulitis. This has been over the last several years. The first 3 were performed in [place] and the last 2 somewhere here in [place]. At the time of me meeting her, she had a large midline abdominal hernia because of her multiple surgeries and a postoperative wound infection. She had a colostomy in the left upper quadrant. There was a substantial history of diverticulitis. She also had old studies which revealed that she had a colovaginal fistula at one point in time and another one that showed one without. The patient has voluntarily lost 30 to 35 pounds in the last year at the request of another physician before he would operate on her. She has a rectal stump that I evaluated in the office, which was approximately 13 cm in length. It is my opinion that the patient has had diverticulitis and has had some type of resection. She had an attempted reanastomosis which leaked and she had another attempted reanastomosis, which failed in some way with a fistula, because she described having stool from her vagina. She has also had another surgery for bleeding. At this time, she presents to the operating room for evaluation with exploratory laparotomy with the attempt to restore intestinal continuity or perhaps to remove for residual disease. I have discussed all the potential options with the patient including the possibility of waking up with an end colostomy, a possible loop ileostomy. She understands and wishes to proceed. PREOPERATIVE DIAGNOSIS: Colostomy diversion after a diverticular operation with large midline abdominal hernia. 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 PROCEDURE: 1. Exploratory laparotomy. 2. Extensive lysis of adhesions (2 hours). 3. Resection of colostomy, distal sigmoid colon and rectosigmoid colon 4. Repair small bowel enterotomies x 4 5. Left ureterolysis. 6. Primary stapled colorectal anastomosis. 7. Incidental appendectomy. 8. Complex hernia repair utilizing ACell tissue implant. 9. Proctosigmoidoscopy SURGEON: Dr. Luther Prakash. CAR REPAIRER HELPER: Dr. Candelario Macdonald. ANESTHESIA: General endotracheal anesthesia administered by Dr. Boyd. FLUIDS: 3500 mL of crystalloid. ESTIMATED BLOOD LOSS: 200 mL. DRAINS: None. TISSUE IMPLANT: ACell into the fascial plane.. COMPLICATIONS: None. FINDINGS AND TECHNIQUE: The patient was brought to the operating room and following successful induction of anesthesia, was carefully placed in the supine lithotomy position utilizing the Chavez stirrups. All pressure points were carefully padded. The patient's abdomen and perineum were prepped with Betadine solution. Prior to preparation, her colostomy which was located in the left abdomen was closed with a running 3-0 chromic suture. She was then draped with sterile towels and drapes. Next, using a #10 scalpel blade, a low midline incision was made from the symphysis pubis up to the umbilicus which is surgically absent. The incision was divided down through the skin and we immediately encountered adhesed intestine. We carefully lysed the adhesions between the abdominal skin and the bowel itself, clearing this all the way back to the fascial edge. The fascial edge was approximately 3 fingerbreadths on either side of the midline incision. We continued clearing these intraabdominal adhesions from the anterior abdominal as well, circumferentially. Following this, a large Mayo self- retaining wound retractor was placed into the wound. Next, a very comprehensive enterolysis between all the loops of small intestine was performed , lysing all of the adhesions between the small bowel from the ligament of Treitz all the way up to the proximal jejunum. This, combined with entering the abdomen, was a very tedious and complex process which required 2 hours by the clock. During this time period, there were approximately 4 enterotomies. Each of these was repaired in 2 layers with an inner layer of running 3-0 Vicryl suture followed by a second layer of interrupted sews of 3-0 silk in a Lembert style fashion. As we cleared out all of the small intestine and identified the anatomy, it became apparent that the patient's colostomy was not an end colostomy, but was indeed a loop colostomy. It was from the mid transverse colon. Distal to the colostomy we took the transverse colon up to the splenic flexure which was taken down under direct observation by taking down the splenic flexure and its attachments both to the lateral abdominal wall and inferior to the spleen, so that it was cleared away from the splenic hilum. We continued the dissection distally down onto the descending colon and down to a residual of the sigmoid colon where it was adherent to the vagina proper. Here we divided the bowel from the vagina. The fistula into the vagina was not large enough to require a direct repair and it was left alone. We then went to the pelvis and we identified the rectosigmoid and the rectum. This was carefully dissected. It was adherent to the left side of the pelvis and it was carefully mobilized to the midline. As we continued the dissection medially, we were carefully looking for the ureter. We went up proximally and found the ureter near the bifurcation of the iliac arteries and found it there. We then followed it distally where it was adherent to the sacrum in the midline as well as the mesentery of the rectosigmoid and rectum. Here it required release from all of the fibrotic reaction from the previous diverticular disease and we carried it down in a distal dissection until it was free of the intestine. As we mobilized the rectum circumferentially, we encountered some diverticular disease in the proximal portion of the rectosigmoid. I then divided the rectosigmoid from the rectum at a point where the bowel was normal in appearance and texture. This was accomplished with the firing of the curved contour stapler. It was sent as a specimen. The sigmoid colon was then carefully evaluated. Prior to resecting this, however, I took down the colostomy by doing a circumferential dissection from the skin through the abdominal wall and bringing it down into the abdominal cavity proper. The patient had an extremely mobile transverse colon. The lumen of the transverse colon, especially in the mid portion of normal caliber. I was able to resect the colostomy with the firing of the TREMAINE stapler, and then oversewed the staple line with interrupted sews of 2-0 silk suture. This left us and intact piece of colon from the cecum all the way down to the proximal sigmoid colon. As there was still some diverticular disease in this portion, I resected an additional 6 to 8 cm of colon back to healthy-appearing bowel by dividing it with the stapler. I had enough bowel to reach well into the pelvis, so plan to a primary stapled anastomosis. The sigmoid colon; however, was small in caliber. I removed the staple line by placing the automatic pursestring stapler across this and resected the staple line. I placed the anvil of a #25 ILS end-to-waxer tender within the lumen and secured it with the 2-0 Prolene. The speech pathology assistant then went to the perineal position and after carefully dilating the anal canal past of the barrell of the 25 ILS stapler proximally. The trocar was passed through the end of the rectum and the 2 ends were aligned, assembled and docked. The stapler was fired resulting in 2 intact colorectal donuts. The anastomosis was then visualized by rigid proctoscopy. The anastomosis was measured at approximately 12 cm, was intact and nonbleeding. Next, we filled the pelvis with fluid and with the anastomosis submerged and the proximal bowel occluded. insufflated the rectum and colorectal anastomosis. There was no air leak. The lumen was then deflated and the proctoscope removed. Gown and gloves change ensued. We then carefully evaluated the rest of the abdomen, running the bowel from the ileocecal valve up to nearly the ligament of Treitz. We checked all of our repairs and they were all intact. We then arranged the small intestine into a more normal anatomic arrangement. The bowel of the large intestine looked quite healthy and we decided to not divert the patient. We then approached the remainder of the procedure. Because of the extensive dissection and not wanting to have to come back into the abdomen, I elected to perform an elective appendectomy because the appendix was lying near the repair. I divided the appendiceal mesentery between clamps and ligated with 2-0 Vicryl ties. I then stapled off the appendix with a single firing of the TREMAINE stapler and inverted it with interrupted sews of 3-0 silk suture. We then closed the colostomy site. This was done in 2 layers, first closing the internal fascial layer with interrupted sews of #1 PDS and a second layer from the skin side with interrupted sews of #1 PDS. The skin was then loosely closed with stainless steel skin clips. We then addressed the abdominal wall closure. Because of the extensive nature of the hernia, we could not close this primarily and it would have to be closed with some kind of mesh replacement. Given that this was an extensive bowel procedure, we elected to use a tissue implant to avoid the risk of infection. To that end, we used ACecleopatra. We had to us two 4 x 6 cm pieces as well as one 2 x 3 cm piece. It was sutured with interrupted sews of #0 PDS suture to the fascia along one side and it was fashioned to itself in the superior edge. We then brought the opposite side fascia over and sewed it to that side, completing a fascial closure. We then approximated the subcutaneous layer, which was sparse with interrupted sews of 2-0 Vicryl suture. The skin was then closed primarily with 2-0 Prolene in a horizontal mattress style in interrupted sutures. We also added stainless steel skin clips. This was in an effort to restore abdominal domain and compliance. At the end of the procedure, sponge and needle counts were correct x2. The patient tolerated the procedure well and was transported to the recovery room in stable condition. Prior to transfer to a bed; however, I placed an abdominal binder to help support the abdominal wall. Dictated By: LUTHER PRAKASH MD, CH/NTS Conf#: [id number] DID#: [id number] CC: CANDELARIO MACDONALD MD;*EndCC* MTDD
--- NOTE | 2016-05-12 14:41 | PN ---
Date/Time of Note Date/Time of Note DATE: 05/12/16 TIME: 14:37 Assessment/Plan VTE Prophylaxis VTE Prophylaxis Intervention: ambulation, LMWH Lines/Catheters IV [facility]from [facility] Peripheral IV Urinary Cath still in place: No Assessment/Plan Chief Complaint/Hosp Course S/P surgery for colostomy, colo-vaginal fistula, diverticular disease, and hernia Problems: Assessment/Plan The pt has an ileus, and also emesis. We will place an NG tube as well as a PICC line, I also will order CXR, and TPN to supplement her nutrition Subjective 24 Hr Interval Summary Free Text/Dictation The pt is worse today w/ emesis, nausea and discomfort. Her vitals are stabe, and her labs mostly okay except for low albumin., No flatus today She is now POD #7 Gastrointestinal: blood, constipation, decreased appetite, diarrhea, flatus, nausea, no complaints, other, pain, passing stool, vomiting Exam/Review of Systems Vital Signs Vitals Vital Signs Date Time Temp Pulse Resp B/P Pulse Ox O2 Delivery O2 Flow Rate FiO2 05/12/16 07:19 98.0 94 19 121/60 97 05/11/16 08:00 Nasal Cannula 2.0 Intake and Output 05/11/16 05/11/16 05/12/16 15:00 23:00 07:00 Intake Total 1620 ml 1220 ml Output Total 600 ml Balance 1620 ml 620 ml Exam The pt is sl distended, and has a quiet abdomen Results Result Diagram: 05/12/16 0435 05/12/16 0443 Results 24 hrs Laboratory Tests Test 05/12/16 04:35 05/12/16 04:43 Basophils # 0.0 Basophils % 0.1 Blood Morphology Comment Eosinophils # 0.1 Eosinophils % 1.2 Hematocrit 25.7 L Hemoglobin 8.8 L Lymphocytes # 1.0 Lymphocytes % 11.5 L Mean Corpuscular Hemoglobin 29.8 Mean Corpuscular Hemoglobin Concent 34.2 Mean Corpuscular Volume 87.0 Mean Platelet Volume 7.3 L Monocytes # 0.8 Monocytes % 10.1 Neutrophils # 6.5 Neutrophils % 77.1 H Nucleated Red Blood Cells # 0.0 Nucleated Red Blood Cells % 0.0 Platelet Count 432 Red Blood Count 2.96 L Red Cell Distribution Width 13.1 White Blood Count 8.4 Alanine Aminotransferase (ALT/SGPT) 36 Albumin 3.0 L Albumin/Globulin Ratio 1.03 Alkaline Phosphatase 68 Anion Gap 18 H Aspartate Amino Transf (AST/SGOT) 32 Blood Urea Nitrogen 8 Calcium Level 8.5 Carbon Dioxide Level 23 Chloride Level 97 Creatinine 0.47 Direct Bilirubin 0.00 Globulin 2.90 Glucose Level 91 Indirect Bilirubin 0.2 Potassium Level 3.4 L Sodium Level 135 Total Bilirubin 0.2 Total Protein 5.9 L Medications Medications Current Medications Diphenhydramine HCl (Benadryl) 25 mg Q6H PRN IV ITCHING; Start 05/05/16 at 19: 30 Ondansetron HCl (Zofran Inj) 4 mg Q6H PRN IV NAUSEA AND/OR VOMITING Last administered on 05/12/16 08:47; Admin Dose 4 MG; Start 05/05/16 at 19:30 Pantoprazole (Protonix Tab) 40 mg DAILY@06 PO Last administered on 05/12/16 05 :38; Admin Dose 40 MG; Start 05/06/16 at 06:00 Naloxone HCl (Narcan) 0.2 mg Q2M PRN IV RR 8 BREATHS/MIN OR LESS; Start at 19:30 Lorazepam (Ativan) 0.5 mg Q6H PRN IV AGITATION; Start 05/05/16 at 19:30 Oxycodone/ Acetaminophen 1 tab 1 tab Q4H PRN PO PAIN Last administered on 13:07; Admin Dose 1 TAB; Start 05/09/16 at 11:30 Potassium Chloride/Sodium Chloride (KCl/1/2 NS) 1,005 ml @ 75 mls/hr [id number] IV Last administered on 05/12/16 08:18; Admin Dose 75 MLS/HR; Start 05/09/16 at 12:30 Metoclopramide HCl (Reglan) 10 mg Q6H PRN IV NAUSEA Last administered on 14:20; Admin Dose 10 MG; Start 05/09/16 at 20:30 Hydromorphone HCl (Dilaudid) 0.4 mg Q6H PRN IV PAIN Last administered on 14:20; Admin Dose 0.4 MG; Start 05/09/16 at 20:30 Polyethylene Glycol (Miralax) 8.5 gm DAILY GTB Last administered on 05/12/16t 08:18; Admin Dose 8.5 GM; Start 05/11/16 at 13:30 KUMAR ARENAS MD May 12, 2016 14:41
[2016-05-12] MEDS ORDERED: LIDOCAINE 1% (MDV) 20 ML INJ SC ONE (15:00)
[2016-05-12] MEDS ORDERED: FAT EMULSION 20% 500 ML IV SCH ×2 (18:00→18:30)
[2016-05-12] MEDS ORDERED: TPN 1,000 ML IV SCH ×2 (18:00→18:30)
--- NOTE | 2016-05-12 18:11 | RADRPT ---
PROCEDURE: XR Chest. CLINICAL INDICATION: Check nasogastric tube position. TECHNIQUE: Two views. Frontal and lateral. COMPARISON: 11/14/2015. FINDINGS: There is mild atelectasis at the lung bases. The lungs are otherwise clear. There is a nasogastric tube with the tip in the stomach. The heart size is normal. There is no pleural effusion. There is no pneumothorax. IMPRESSION: 1. Mild atelectasis at the lung bases. 2. Nasogastric tube tip in the stomach. 3. Otherwise normal chest radiographs. RPTAT: QQ .Chad Levin MD, Date Time Electronically viewed and signed by .Chad Levin MD, MD on 05/12/2016 18:10 .R/
--- NOTE | 2016-05-12 18:13 | RADRPT ---
PROCEDURE: XR Abdomen. CLINICAL INDICATION: Abdomen pain. TECHNIQUE: Two views. AP supine and AP erect. COMPARISON: 11/17/2015. FINDINGS: There is a nasogastric tube with the tip in the stomach. Surgical clips are present in the right up per quadrant. There are multiple midline skin andrew and left lower quadrant skin andrew. Surgic al clips and andrew are present in the pelvis. The bowel gas pattern is normal. There is no evidence of obstruction. There are no abnormal calcifications overlying the urinary tracts. There are degenerative changes of the spine. IMPRESSION: 1. Nasogastric tube tip in the stomach. 2. Postoperative changes. 3. Degenerative changes of the spine. RPTAT: QQ .Chad Levin MD, MD Date Time Electronically viewed and signed by .Chad Levin MD, on 05/12/2016 18:13 .R/
[2016-05-12] MEDS: D5W-0.45 NACL + KCL 10 MEQ 1,000 ML IV SCH (18:35)
[2016-05-12 19:43] VITALS: BP 133/72; RESP 22
[2016-05-13] MEDS: LORAZEPAM 2 MG INJ IV PRN (01:00)
[2016-05-13] MEDS: D5W-0.45 NACL + KCL 10 MEQ 1,000 ML IV SCH ×3 (01:00→11:50)
[2016-05-13] MEDS: PANTOPRAZOLE (EC) 40 MG TAB PO SCH ×2 (04:34→05:54)
[2016-05-13] MEDS: HYDROmorphONE 1 MG/ML SYG IV PRN ×3 (04:55→20:49)
[2016-05-13 05:08] LABS: ALBUMIN 2.8 g/dl (3.3-4.9)
[2016-05-13 05:09] LABS: POTASSIUM 3.1 mmol/L (3.5-5.1)
[2016-05-13 05:11] LABS: ALBUMIN/GLOBULIN RATIO 0.9; BILIRUBIN,INDIRECT 0.1 mg/dl (0-1.1); BILIRUBIN,TOTAL 0.1 mg/dl (0.2-1.3); CREATININE 0.47 mg/dl (0.44-1.00); TOTAL PROTEIN 5.9 g/dl (6.1-8.1)
[2016-05-13 05:12] LABS: CALCIUM 8.2 mg/dl (8.4-10.2)
[2016-05-13 05:16] LABS: BASOPHILS % 0.4 % (0.0-2.0); EOSINOPHILS # 0.2 10^3/ul (0.0-0.5); EOSINOPHILS % 2.6 % (0.0-7.0); HEMATOCRIT 26.3 % (37.0-47.0); MEAN CORPUSCULAR HEMOGLOBIN 29.7 pg (29.0-33.0); MEAN CORPUSCULAR HGB CONC 34.1 g/dl (32.0-37.0); MEAN CORPUSCULAR VOLUME 87.1 fl (82.0-101.0); MEAN PLATELET VOLUME 7.1 fl (7.4-10.4); MONOCYTE # 0.7 10^3/ul (0.3-0.9); MONOCYTES % 10.6 % (0.0-11.0); NEUTROPHIL # 4.8 10^3/ul (1.6-7.5); NEUTROPHILS % 71.4 % (39.0-77.0); PLATELET COUNT 472 10^3/UL (140-440); RED BLOOD COUNT 3.02 10^6/ul (4.20-5.40); UNCORRECTED WBC 6.7 10^3/ul (4.8-10.8); WHITE BLOOD COUNT 6.7 10^3/ul (4.8-10.8)
[2016-05-13 05:40] LABS: POTASSIUM 3.4 mmol/L (3.5-5.1)
[2016-05-13 05:45] LABS: CONDITION 1
[2016-05-13 07:47] VITALS: BP 121/68; RESP 19
[2016-05-13] MEDS: POLYETHYLENE GLYCOL 17 GM PACKET GTB SCH (09:00)
[2016-05-13] MEDS ORDERED: SOD CHLORIDE 0.9% 100 ML ONE (10:56)
[2016-05-13 11:15] VITALS: BP 128/73; PULSE 72; RESP 18
--- NOTE | 2016-05-13 11:33 | RADRPT ---
PROCEDURE: XR Chest AP portable CLINICAL INDICATION: PICC placement TECHNIQUE: An AP portable radiograph of the chest was submitted. COMPARISON: 05/12/2016 FINDINGS: Support Hardware: A left upper extremity PICC catheter is in place but the tube is malpositioned dir ected superiorly into the left jugular vein. The NG tube remains in place. Cardiovascular: The cardiovascular silhouette appears unremarkable. Lung Velazquez: Increasing discoid atelectasis is seen at the left lung base. Pleural Spaces: No pneumothorax or pleural effusion is identified. Osseous Structures: Mild degenerative spine changes are again noted. Soft Tissues: The soft tissues appear unremarkable. IMPRESSION: 1. Malpositioned left upper extremity PICC catheter with the tip directed superiorly in the left ju gular vein. 2. The NG tube remains in place. 3. Increasing discoid atelectasis noted at the left lung base. Physician Gala Date Time Electronically viewed and signed by Physician Gala on 05/13/2016 11:32 /
--- NOTE | 2016-05-13 11:34 | RADRPT ---
PROCEDURE: XR Chest AP portable CLINICAL INDICATION: PICC line placement TECHNIQUE: An AP portable radiograph of the chest was submitted. COMPARISON: The study done earlier on the same date FINDINGS: Support Hardware: The left upper extremity PICC catheter has been repositioned with the tip now proj ecting through the right atrium. The NG tube remains in place. Cardiovascular: The cardiovascular silhouette appears unremarkable. Lung Velazquez: Discoid atelectasis is again seen at the left lung base. Pleural Spaces: No pneumothorax or pleural effusion is identified. Osseous Structures: The osseous structures appear intact. Soft Tissues: The soft tissues appear unremarkable. IMPRESSION: 1. The left upper extremity PICC catheter has been repositioned and the tip is now within the infer ior right atrium. The NG tube remains in place. 2. Persistent discoid atelectasis at the left lung base. Physician Gala Date Time Electronically viewed and signed by Physician Gala on 05/13/2016 11:34 /
--- NOTE | 2016-05-13 11:35 | RADRPT ---
PROCEDURE: US Intravascular Line Insertion CLINICAL INDICATION: PICC line placement TECHNIQUE: Ultrasound was used to guide intravascular line placement. COMPARISON: None FINDINGS: Images were taken during real time ultrasound guided PICC line insertion. IMPRESSION: Ultrasound-guided intravascular line insertion. Physician Gala Date Time Electronically viewed and signed by Dexter Sanders Physician on 05/13/2016 11:35 /
[2016-05-13] MEDS: ONDANSETRON 4 MG INJ IV PRN (11:44)
[2016-05-13 11:45] VITALS: BP 125/71; PULSE 70; RESP 18
[2016-05-13] MEDS ORDERED: POTASSIUM CHLORIDE 50 ML IVPB ONE (12:00)
[2016-05-13 12:15] VITALS: BP 122/72; PULSE 69; RESP 18
[2016-05-13] MEDS ORDERED: FAT EMULSION 20% 500 ML IV SCH (14:00)
[2016-05-13] MEDS: TPN 1,000 ML IV SCH (14:40)
[2016-05-13] MEDS: KETOROLAC 15 MG INJ IV PRN (18:11)
--- NOTE | 2016-05-13 18:16 | PN ---
Date/Time of Note Date/Time of Note DATE: 05/13/16 TIME: 18:09 Assessment/Plan VTE Prophylaxis VTE Prophylaxis Intervention: ambulation, LMWH Lines/Catheters IV Catheter Type (from Nrs): PICC Line Central line still needed: No Urinary Cath still in place: No Assessment/Plan Chief Complaint/Hosp Course S/P surgery for colostomy, colo-vaginal fistula, diverticular disease, and hernia Problems: Assessment/Plan S/P NG tube placement, and start of TPN. Will rest the bowel and see if bowel activity returns. Will consider SBFT if activity does not return soon Subjective 24 Hr Interval Summary Free Text/Dictation Pt received her PICC earlier today and is now getting her TPN. NG output has continued to drain , now upwards of 2000cc. She now has no nausea. Abdominal pain persists but is improved compared to that assoc w/ the gastric dilatation. Labs are stable and WBC is normal. VSS and there is no fever. Gastrointestinal: nausea, pain, No blood, No constipation, No decreased appetite, No diarrhea, No flatus, No no complaints, No other, No passing stool, No vomiting Exam/Review of Systems Vital Signs Vitals Vital Signs Date Time Temp Pulse Resp B/P Pulse Ox O2 Delivery O2 Flow Rate FiO2 05/13/16 07:47 97.0 81 19 121/68 97 05/11/16 08:00 Nasal Cannula 2.0 Intake and Output 05/12/16 05/12/16 05/13/16 15:00 23:00 07:00 Intake Total 105 ml 1330 ml 1450 ml Output Total 2900 ml 800 ml Balance 105 ml -1570 ml 650 ml Exam Abdomen is sl distended, and quiet. Incision is healing Albumin is low Results Result Diagram: 05/13/16 0445 05/13/16 0445 Results 24 hrs Laboratory Tests Test 05/13/16 04:45 Alanine Aminotransferase (ALT/SGPT) 48 Albumin 2.8 L Albumin/Globulin Ratio 0.90 Alkaline Phosphatase 61 Anion Gap 15 Aspartate Amino Transf (AST/SGOT) 41 Basophils # 0.0 Basophils % 0.4 Blood Morphology Comment Blood Urea Nitrogen 3 L Calcium Level 8.2 L Carbon Dioxide Level 25 Chloride Level 100 Creatinine 0.47 Direct Bilirubin 0.00 Eosinophils # 0.2 Eosinophils % 2.6 Globulin 3.10 Glucose Level 139 # Hematocrit 26.3 L Hemoglobin 9.0 L Indirect Bilirubin 0.1 Lymphocytes # 1.0 Lymphocytes % 15.0 Mean Corpuscular Hemoglobin 29.7 Mean Corpuscular Hemoglobin Concent 34.1 Mean Corpuscular Volume 87.1 Mean Platelet Volume 7.1 L Monocytes # 0.7 Monocytes % 10.6 Neutrophils # 4.8 Neutrophils % 71.4 Nucleated Red Blood Cells # 0.0 Nucleated Red Blood Cells % 0.0 Platelet Count 472 H Potassium Level 3.1 L Prealbumin 10.0 L Red Blood Count 3.02 L Red Cell Distribution Width 13.0 Sodium Level 137 Total Bilirubin 0.1 L Total Protein 5.9 L Triglycerides Level 127 White Blood Count 6.7 # Medications Medications Current Medications Diphenhydramine HCl (Benadryl) 25 mg Q6H PRN IV ITCHING; Start 05/05/16 at 19: 30 Ondansetron HCl (Zofran Inj) 4 mg Q6H PRN IV NAUSEA AND/OR VOMITING Last administered on 05/13/16 11:44; Admin Dose 4 MG; Start 05/05/16 at 19:30 Pantoprazole (Protonix Tab) 40 mg DAILY@06 PO Last administered on 05/12/16 05 :38; Admin Dose 40 MG; Start 05/06/16 at 06:00 Naloxone HCl (Narcan) 0.2 mg Q2M PRN IV RR 8 BREATHS/MIN OR LESS; Start at 19:30 Lorazepam (Ativan) 0.5 mg Q6H PRN IV AGITATION; Start 05/05/16 at 19:30 Oxycodone/ Acetaminophen (Percocet (5/ 325)) 1 tab Q4H PRN PO PAIN Last administered on 05/12/16 13:07; Admin Dose 1 TAB; Start 05/09/16 at 11:30 Metoclopramide HCl (Reglan) 10 mg Q6H PRN IV NAUSEA Last administered on 14:20; Admin Dose 10 MG; Start 05/09/16 at 20:30 Polyethylene Glycol (Miralax) 8.5 gm DAILY GTB Last administered on 05/12/16 08:18; Admin Dose 8.5 GM; Start 05/11/16 at 13:30 Hydromorphone HCl (Dilaudid) 0.4 mg Q4H PRN IV PAIN Last administered on 11:38; Admin Dose 0.4 MG; Start 05/13/16 at 10:30 Ketorolac Tromethamine (Toradol) 15 mg Q8 PRN IV PAIN; Start 05/13/16 at 10:30; Stop 05/16/16 at 10:29 IV Flush 10 ml 10 ml PRN PRN IV IV PROTOCOL; Start 05/13/16 at 11:00 Fat Emulsion Intravenous 500 ml @ 62.5 mls/hr Q24H IV Last administered on 05/13 14:55; Admin Dose 62.5 MLS/HR; Start 05/13/16 at 14:00 Total Parenteral Nutrition (Tpn) 1,000 ml @ 80 mls/hr [id number] IV Last administered on 05/13/16 14:40; Admin Dose 80 MLS/HR; Start 05/13/16 at 14:00 KUMAR ARENAS MD May 13, 2016 18:16
[2016-05-13] MEDS: FAT EMULSION 20% 250 ML IV SCH (19:00)
[2016-05-13 19:29] VITALS: BP 127/74; RESP 19
[2016-05-13] MEDS: METOCLOPRAMIDE 10 MG INJ IV SCH (23:32)
[2016-05-14] MEDS: ACCUCHECK XX SCH ×6 (00:33→23:30)
[2016-05-14] MEDS: HYDROmorphONE 1 MG/ML SYG IV PRN ×4 (02:29→22:41)
[2016-05-14] MEDS: TPN 1,000 ML IV SCH ×2 (02:53→16:08)
[2016-05-14 05:18] LABS: BASOPHILS % 0.4 % (0.0-2.0); EOSINOPHILS # 0.2 10^3/ul (0.0-0.5); EOSINOPHILS % 2.5 % (0.0-7.0); HEMATOCRIT 26.8 % (37.0-47.0); HEMOGLOBIN 9.2 g/dl (12.0-16.0); LYMPHOCYTES # 1.2 10^3/ul (0.8-2.9); MEAN CORPUSCULAR HGB CONC 34.4 g/dl (32.0-37.0); MEAN CORPUSCULAR VOLUME 87.1 fl (82.0-101.0); MONOCYTE # 0.6 10^3/ul (0.3-0.9); MONOCYTES % 7.4 % (0.0-11.0); NEUTROPHILS % 74.7 % (39.0-77.0); PLATELET COUNT 558 10^3/UL (140-440); RED BLOOD COUNT 3.08 10^6/ul (4.20-5.40); RED CELL DISTRIBUTION WIDTH 13.1 % (11.5-14.5); UNCORRECTED WBC 8.1 10^3/ul (4.8-10.8); WHITE BLOOD COUNT 8.1 10^3/ul (4.8-10.8)
[2016-05-14] MEDS: METOCLOPRAMIDE 10 MG INJ IV SCH ×4 (05:27→23:30)
[2016-05-14] MEDS: PANTOPRAZOLE (EC) 40 MG TAB PO SCH (05:27)
[2016-05-14 06:49] LABS: CONDITION 1
[2016-05-14] MEDS: POLYETHYLENE GLYCOL 17 GM PACKET GTB SCH (09:00)
[2016-05-14 09:26] VITALS: BP 128/71; RESP 20
[2016-05-14] MEDS: KETOROLAC 15 MG INJ IV PRN (10:11)
--- NOTE | 2016-05-14 14:04 | PN ---
Date/Time of Note Date/Time of Note DATE: 05/14/16 TIME: 14:00 Assessment/Plan VTE Prophylaxis VTE Prophylaxis Intervention: ambulation, LMWH Lines/Catheters IV Catheter Type (from Nrsg): PICC Line Central line still needed: No Urinary Cath still in place: No Assessment/Plan Chief Complaint/Hosp Course S/P surgery for colostomy, colo-vaginal fistula, diverticular disease, and hernia Problems: Assessment/Plan Persistent ileus, though KUB shoed no sign of SBO. Continue w/ ambulation, TPN, and supportive care. Subjective 24 Hr Interval Summary Free Text/Dictation Pt states she has better energy, and generally feels better. Urine output is good, and labs are stable. She is on Day #3 TPN, is ambulating, but has mod lg amt of NG output. Less nausea and pain. VSS Gastrointestinal: flatus (No gas per rectum), pain (Occ cramps), No blood, No constipation, No decreased appetite, No diarrhea, No nausea, No no complaints, No other, No passing stool, No vomiting Exam/Review of Systems Vital Signs Vitals Vital Signs Date Time Temp Pulse Resp B/P Pulse Ox O2 Delivery O2 Flow Rate FiO2 05/14/16 09:26 98.2 86 20 128/71 98 05/11/16 08:00 Nasal Cannula 2.0 Intake and Output 05/13/16 05/13/16 05/14/16 15:00 23:00 07:00 Intake Total 1795 ml 1310 ml Output Total 800 ml Balance 995 ml 1310 ml Exam Non-distended, quiet Results Result Diagram: 05/14/16 0430 05/13/16 0445 Results 24 hrs Laboratory Tests Test 05/13/16 23:30 05/14/16 04:30 05/14/16 04:32 05/14/16 07:57 Bedside Glucose 158 142 150 Basophils # 0.0 Basophils % 0.4 Blood Morphology Comment Eosinophils # 0.2 Eosinophils % 2.5 Hematocrit 26.8 L Hemoglobin 9.2 L Lymphocytes # 1.2 Lymphocytes % 15.0 Mean Corpuscular Hemoglobin 30.0 Mean Corpuscular Hemoglobin Concent 34.4 Mean Corpuscular Volume 87.1 Mean Platelet Volume 7.0 L Monocytes # 0.6 Monocytes % 7.4 Neutrophils # 6.0 Neutrophils % 74.7 Nucleated Red Blood Cells # 0.0 Nucleated Red Blood Cells % 0.0 Platelet Count 558 H Red Blood Count 3.08 L Red Cell Distribution Width 13.1 White Blood Count 8.1 # Test 05/14/16 11:40 Bedside Glucose 136 Medications Medications Current Medications Diphenhydramine HCl (Benadryl) 25 mg Q6H PRN IV ITCHING; Start 05/05/16 at 19: 30 Ondansetron HCl (Zofran Inj) 4 mg Q6H PRN IV NAUSEA AND/OR VOMITING Last administered on 05/13/16 11:44; Admin Dose 4 MG; Start 05/05/16 at 19:30 Pantoprazole (Protonix Tab) 40 mg DAILY@06 PO Last administered on 05/12/16 05 :38; Admin Dose 40 MG; Start 05/06/16 at 06:00 Naloxone HCl (Narcan) 0.2 mg Q2M PRN IV RR 8 BREATHS/MIN OR LESS; Start at 19:30 Lorazepam (Ativan) 0.5 mg Q6H PRN IV AGITATION; Start 05/05/16 at 19:30 Oxycodone/ Acetaminophen (Percocet (5/ 325)) 1 tab Q4H PRN PO PAIN Last administered on 05/12/16 13:07; Admin Dose 1 TAB; Start 05/09/16 at 11:30 Polyethylene Glycol (Miralax) 8.5 gm DAILY GTB Last administered on 05/12/16 08:18; Admin Dose 8.5 GM; Start 05/11/16 at 13:30 Hydromorphone HCl (Dilaudid) 0.4 mg Q4H PRN IV PAIN Last administered on 12:54; Admin Dose 0.4 MG; Start 05/13/16 at 10:30 Ketorolac Tromethamine (Toradol) 15 mg Q8 PRN IV PAIN Last administered on 10:11; Admin Dose 15 MG; Start 05/13/16 at 10:30; Stop 05/16/16 at 10:29 IV Flush 10 ml 10 ml PRN PRN IV IV PROTOCOL; Start 05/13/16 at 11:00 Total Parenteral Nutrition (Tpn) 1,000 ml @ 80 mls/hr [id number] IV Last administered on 05/14/16 02:53; Admin Dose 80 MLS/HR; Start 05/13/16 at 14:00 Metoclopramide HCl 5 mg 5 mg Q6 IV Last administered on 05/14/16 12:41; Admin Dose 5 MG; Start 05/14/16 at 00:00 Fat Emulsion Intravenous (Liposyn Ii 20%) 250 ml @ 40 mls/hr Q24H IV Last administered on 05/13/16 19:00; Admin Dose 40 MLS/HR; Start 05/13/16 at 19:00 Diagnostic Test (Pha) (Accucheck) 1 ea Q6 XX Last administered on 05/14/16 12: 35; Admin Dose 1 EA; Start 05/14/16 at 00:30; Stop 05/15/16 at 00:35 Diagnostic Test (Pha) (Accucheck) 1 ea Q12 XX ; Start 05/14/16 at 21:00 KUMAR ARENAS MD May 14, 2016 14:04
[2016-05-14] MEDS: FAT EMULSION 20% 250 ML IV SCH (19:45)
[2016-05-14] MEDS: LORAZEPAM 2 MG INJ IV PRN (20:58)
[2016-05-14 21:04] VITALS: BP 114/67; RESP 20
[2016-05-15 03:00] VITALS: BP 132/72; PULSE 85; RESP 20
[2016-05-15] MEDS: TPN 1,000 ML IV SCH ×2 (04:28→16:06)
[2016-05-15] MEDS: HYDROmorphONE 1 MG/ML SYG IV PRN ×4 (04:28→20:22)
[2016-05-15] MEDS: PANTOPRAZOLE (EC) 40 MG TAB PO SCH (05:10)
[2016-05-15] MEDS: METOCLOPRAMIDE 10 MG INJ IV SCH ×3 (05:18→17:19)
[2016-05-15 05:35] LABS: CREATININE 0.5 mg/dl (0.44-1.00)
[2016-05-15 05:36] LABS: PHOSPHORUS 4.8 mg/dl (2.5-4.9); POTASSIUM 2.5 mmol/L (3.5-5.1)
[2016-05-15 05:37] LABS: CALCIUM 9.2 mg/dl (8.4-10.2); MAGNESIUM 2.2 mg/dl (1.7-2.5)
[2016-05-15] MEDS ORDERED: SOD CHLORIDE 0.9% 500 ML IV ONE ×2 (06:30→07:00)
[2016-05-15 07:00] VITALS: BP 113/65; RESP 20
[2016-05-15] MEDS: POTASSIUM CHLORIDE 50 ML IVPB SCH ×6 (07:37→17:19)
[2016-05-15] MEDS: POLYETHYLENE GLYCOL 17 GM PACKET GTB SCH (09:00)
[2016-05-15] MEDS: ACCUCHECK XX SCH ×2 (09:21→20:23)
[2016-05-15] MEDS ORDERED: IOHEXOL 300MG/ML 30 ML BTL ONE (10:41)
[2016-05-15 11:57] LABS: POTASSIUM 3.1 mmol/L (3.5-5.1)
[2016-05-15 12:00] LABS: CREATININE 0.5 mg/dl (0.44-1.00)
--- NOTE | 2016-05-15 13:26 | PN ---
Date/Time of Note Date/Time of Note DATE: 05/15/16 TIME: 13:18 Assessment/Plan VTE Prophylaxis VTE Prophylaxis Intervention: ambulation, LMWH Lines/Catheters IV [facility] Type (from [facility]): PICC Line Central line still needed: No Urinary Cath still in place: No Assessment/Plan Chief Complaint/Hosp Course S/P surgery for colostomy, colo-vaginal fistula, diverticular disease, and hernia Problems: Assessment/Plan Will get a CT of abd/ pelvis with triple contrast to evaluate for anastomotic leak, SBO, or abscess to help determine the etiology of her ileus Will replace her K+ Subjective 24 Hr Interval Summary Free Text/Dictation POD #10, s/p extensive laparotomy, colon resection , repair of colovaginal fistula and primary anastomosis. She has had a prolonged ileus, w/o any sign of infection or XRay abnormality. Had a substantial increase in her NG output in the last 18 hrs. VSS, afebile, and no increase in pain. Her K+ is low, which is cosistent w/ her elevated NG output. On TPN to supplement her nutrition. Gastrointestinal: diarrhea, nausea, No blood, No constipation, No decreased appetite, No flatus, No no complaints , No other, No pain, No passing stool, No vomiting Exam/Review of Systems Vital Signs Vitals Vital Signs Date Time Temp Pulse Resp B/P Pulse Ox O2 Delivery O2 Flow Rate FiO2 05/15/16 07:00 97.7 80 20 113/65 97 05/11/16 08:00 Nasal Cannula 2.0 Intake and Output 05/14/16 05/14/16 05/15/16 15:00 23:00 07:00 Intake Total 400 ml 920 ml 1020 ml Output Total 2000 ml 2300 ml Balance 400 ml -1080 ml -1280 ml Exam No peritoneal signs, +/- soft , w/ appropriate post op tenderness. Quiet abdomen. Constitutional: alert, oriented Results Result Diagram: 05/14/16 0430 05/15/16 1140 Results 24 hrs Laboratory Tests Test 05/14/16 17:11 05/14/16 23:27 05/15/16 04:35 05/15/16 04:42 Bedside Glucose 133 136 119 Anion Gap 17 H Blood Urea Nitrogen 20 # Calcium Level 9.2 Carbon Dioxide Level 38 #H Chloride Level 91 L Creatinine 0.50 Glucose Level 131 Magnesium Level 2.2 Phosphorus Level 4.8 Potassium Level 2.5 *L Sodium Level 143 Test 05/15/16 08:01 05/15/16 11:40 05/15/16 12:27 Bedside Glucose 138 132 Anion Gap 16 Blood Urea Nitrogen 20 Calcium Level 9.0 Carbon Dioxide Level 36 H Chloride Level 93 L Creatinine 0.50 Glucose Level 133 Potassium Level 3.1 L Sodium Level 142 Medications Medications Current Medications Diphenhydramine HCl (Benadryl) 25 mg Q6H PRN IV ITCHING; Start 05/05/16 at 19: 30 Ondansetron HCl (Zofran Inj) 4 mg Q6H PRN IV NAUSEA AND/OR VOMITING Last administered on 05/13/16 11:44; Admin Dose 4 MG; Start 05/05/16 at 19:30 Pantoprazole (Protonix Tab) 40 mg DAILY@06 PO Last administered on 05/12/16 05 :38; Admin Dose 40 MG; Start 05/06/16 at 06:00 Naloxone HCl (Narcan) 0.2 mg Q2M PRN IV RR 8 BREATHS/MIN OR LESS; Start at 19:30 Lorazepam (Ativan) 0.5 mg Q6H PRN IV AGITATION; Start 05/05/16 at 19:30 Oxycodone/ Acetaminophen (Percocet (5/ 325)) 1 tab Q4H PRN PO PAIN Last administered on 05/12/16 13:07; Admin Dose 1 TAB; Start 05/09/16 at 11:30 Polyethylene Glycol (Miralax) 8.5 gm DAILY GTB Last administered on 05/12/16 08:18; Admin Dose 8.5 GM; Start 05/11/16 at 13:30 Hydromorphone HCl (Dilaudid) 0.4 mg Q4H PRN IV PAIN Last administered on 10:51; Admin Dose 0.4 MG; Start 05/13/16 at 10:30 Ketorolac Tromethamine (Toradol) 15 mg Q8 PRN IV PAIN Last administered on 10:11; Admin Dose 15 MG; Start 05/13/16 at 10:30; Stop 05/16/16 at 10:29 IV Flush 10 ml 10 ml PRN PRN IV IV PROTOCOL; Start 05/13/16 at 11:00 Total Parenteral Nutrition (Tpn) 1,000 ml @ 80 mls/hr [id number] IV Last administered on 05/15/16 04:28; Admin Dose 80 MLS/HR; Start 05/13/16 at 14:00 Metoclopramide HCl 5 mg 5 mg Q6 IV Last administered on 05/15/16 12:15; Admin Dose 5 MG; Start 05/14/16 at 00:00 Fat Emulsion Intravenous (Liposyn Ii 20%) 250 ml @ 12 mls/hr Q24H IV Last administered on 05/14/16 19:45; Admin Dose 12 MLS/HR; Start 05/13/16 at 19:00 Diagnostic Test (Pha) (Accucheck) 1 ea Q12 XX Last administered on 05/15/16 09: 21; Admin Dose 1 EA; Start 05/14/16 at 21:00 KUMAR ARENAS MD May 15, 2016 13:26
[2016-05-15] MEDS ORDERED: SOD CHLORIDE 0.9% 100 ML ONE (13:34)
[2016-05-15] MEDS ORDERED: IOHEXOL 300MG/ML 150 ML BTL ONE ×2 (13:34)
--- NOTE | 2016-05-15 14:40 | RADRPT ---
PROCEDURE: CT Abdomen and Pelvis with contrast. CLINICAL INDICATION: Abdominal and pelvic pain. Postop. TECHNIQUE: CT scan of the abdomen and pelvis with contrast was performed. The patient was scanned following the uncomplicated intravenous administration of 100 cc of Omnipaque-300. Coronal and sagi ttal reformatted images were obtained from the axial source images. Images were reviewed on a high-r EPS PACS workstation. Total exam DLP is 625.04 mGy-cm. CTDIvol is 10.41 mGy. One or more of the following dose reduction techniques were used: Automated exposure control, adjustment of the mA and/or kV according to patient size, use of iterative reconstruction technique. COMPARISON: CT scan of the abdomen and pelvis dated 11/20/2015. FINDINGS: There is mild atelectasis at the lung bases posteriorly. The lung bases are otherwise normal. Ther e is no pleural effusion or pericardial effusion. Central line is present with the tip in the upper right atrium. A nasogastric tube is present in satisfactory position with the tip in the stomach. The liver is normal in size and attenuation. There is no focal hepatic lesion. The gallbladder and bile ducts are normal. The spleen is normal in size. There is no focal splenic lesion. Both adrenals are normal with no enlargement or mass. The pancreas is unremarkable with no mass or evidence of pancreatitis. Both kidneys demonstrate normal contrast enhancement. There is no renal mass or hydronephrosis. The abdominal aorta is not dilated. There is no retroperitoneal lymphadenopathy or mass. There is no pelvic lymphadenopathy or mass. The bladder and distal ureters are normal. The appendix may be surgically absent with surgical clips noted in this vicinity. There has been interval bowel surgery with previously noted left lower quadrant colostomy no longer present. Surgical skin andrew are now present at this site. The colon at this site is reanastomos ed. There is an anastomoses of the sigmoid colon with the rectosigmoid. In the left upper quadrant and centrally in the abdomen, there is moderately dilated small bowel with air-fluid levels consiste nt with ileus or partial obstruction. Rectal contrast is noted at this site with no evidence of tavo k. There is no fluid collection or mass at this site to suggest abscess. There are postoperative changes of the anterior abdominal wall at the site of previous anterior abdo allen wall hernia repair with vertical midline skin andrew noted. There is a subcutaneous fluid co llection at this site measuring approximately 3.0 x 6.0 x 15.5 cm in AP, transverse, and cranial cau wero dimensions consistent with the temporary mesh placed at this site surgically. There are degenerative changes of the spine. There is a right pars defect at L5 and severe degenera tive change of the left L5-S1 facet joint. The osseous structures are otherwise unremarkable. There is no fracture or lytic lesion. IMPRESSION: 1. Mild atelectasis at the lung bases posteriorly. 2. Central line tip in the upper right atrium. 3. Nasogastric tube tip in the stomach. 4. Probable previous appendectomy. 5. Interval bowel surgery as described above. 6. No evidence of leak or abscess in the pelvis at this site of anastomosis in the rectosigmoid. 7. Postoperative changes of the anterior abdominal wall with liquefied temporary mesh noted. 8. Possible small bowel partial obstruction or ileus in the left upper quadrant at the site of prio r surgery. 9. Degenerative changes of the spine. 10. Right pars defect at L5 and severe degenerative change of the left L5-S1 facet joint. RPTAT: QQ .Chad Levin MD, Date Time Electronically viewed and signed by .Chad Levin MD, on 05/15/2016 14:40 .R/
[2016-05-15] MEDS: FAT EMULSION 20% 250 ML IV SCH (18:10)
--- NOTE | 2016-05-15 18:44 | RADRPT ---
Vent Rate: 92 bpm RR Interval: 0 msec AR Interval: 108 msec QRS Duration: 84 msec QT Interval: 382 msec QTC Interval: 472 msec P-R-T Trinity: 13 - 43 - 3 degrees Sinus rhythm with short AR T wave abnormality, consider inferior ischemia T wave abnormality, consider anterior ischemia Prolonged QT Abnormal ECG Electronically Signed By: Luis Alonso [id number]
[2016-05-15 20:19] VITALS: BP 118/68; PULSE 78; RESP 18
[2016-05-15 20:47] LABS: POTASSIUM 3.6 mmol/L (3.5-5.1)
[2016-05-16] MEDS: METOCLOPRAMIDE 10 MG INJ IV SCH ×4 (00:17→17:33)
[2016-05-16] MEDS: HYDROmorphONE 1 MG/ML SYG IV PRN ×4 (01:59→20:37)
[2016-05-16] MEDS: PANTOPRAZOLE (EC) 40 MG TAB PO SCH (05:42)
[2016-05-16] MEDS: TPN 1,000 ML IV SCH ×2 (05:42→16:43)
[2016-05-16 06:19] LABS: POTASSIUM 3.3 mmol/L (3.5-5.1)
[2016-05-16 06:21] LABS: CREATININE 0.51 mg/dl (0.44-1.00)
[2016-05-16 06:22] LABS: CALCIUM 9.4 mg/dl (8.4-10.2); PHOSPHORUS 3.3 mg/dl (2.5-4.9)
[2016-05-16 06:37] LABS: BASOPHILS % 0.4 % (0.0-2.0); EOSINOPHILS % 1.8 % (0.0-7.0); HEMATOCRIT 30.3 % (37.0-47.0); HEMOGLOBIN 9.7 g/dl (12.0-16.0); LYMPHOCYTES % 16.8 % (15.0-51.0); MEAN CORPUSCULAR HEMOGLOBIN 28.8 pg (29.0-33.0); MEAN CORPUSCULAR VOLUME 89.9 fl (82.0-101.0); MEAN PLATELET VOLUME 9.1 fl (7.4-10.4); NEUTROPHILS % 72.9 % (39.0-77.0); PLATELET COUNT 660 10^3/UL (140-440); RED BLOOD COUNT 3.37 10^6/ul (4.20-5.40); RED CELL DISTRIBUTION WIDTH 13.5 % (11.5-14.5); WHITE BLOOD COUNT 11.4 10^3/ul (4.8-10.8)
[2016-05-16 06:38] LABS: BASOPHIL # 0.1 10^3/ul (0.0-0.1); EOSINOPHILS # 0.2 10^3/ul (0.0-0.5); LYMPHOCYTES # 1.9 10^3/ul (0.8-2.9); MONOCYTE # 0.8 10^3/ul (0.3-0.9); NEUTROPHIL # 8.3 10^3/ul (1.6-7.5)
[2016-05-16 07:00] VITALS: BP 114/71; RESP 20
[2016-05-16] MEDS: POLYETHYLENE GLYCOL 17 GM PACKET GTB SCH (08:40)
[2016-05-16] MEDS: ACCUCHECK XX SCH ×2 (08:49→20:07)
--- NOTE | 2016-05-16 12:09 | PN ---
Date/Time of Note Date/Time of Note DATE: 05/16/16 TIME: 12:07 Assessment/Plan Lines/Catheters IV Catheter Type (from Nrsg): PICC Line Clemons in Place (from Nrsg): No Assessment/Plan Assessment/Plan Ms. Apodaca is now POD#111 s/p closure of colostomy, complicated large bowel anastomosis, repair of incisional hernia. She feels better today with less pain and +flatus. NGT output remains high, however. 1. Continue NGT 2. Ambulate at least TID 3. Replace fluids due to high NGT output. 4. Continue TPN Subjective 24 Hr Interval Summary Constitutional: flatus, improved Feeding: NPO Pain Control: well controlled Exam/Review of Systems Vital Signs Vitals Vital Signs Date Time Temp Pulse Resp B/P Pulse Ox O2 Delivery O2 Flow Rate FiO2 05/16/16 07:00 98.3 87 20 114/71 97 05/15/16 21:38 Nasal Cannula 2.0 Intake and Output 05/15/16 05/15/16 05/16/16 15:00 23:00 07:00 Intake Total 1250 ml 1104 ml Output Total 2900 ml 1100 ml Balance -1650 ml 4 ml Exam Constitutional: alert, oriented, well developed Gastrointestinal: other (midline wound has some necrotic skin--not infected, however), soft, tender (incisional TTP) Results Result Diagram: 05/16/16 0455 05/16/16 0455 TERENCE CROCKETT MD May 16, 2016 12:09
[2016-05-16] MEDS ORDERED: LACTATED RINGER'S 1,000 ML IV ONE (12:30)
[2016-05-16] MEDS: FAT EMULSION 20% 250 ML IV SCH (14:51)
[2016-05-16 19:59] VITALS: BP 118/69; RESP 18
[2016-05-17] MEDS: METOCLOPRAMIDE 10 MG INJ IV SCH ×4 (00:11→17:33)
[2016-05-17] MEDS: LORAZEPAM 2 MG INJ IV PRN ×2 (01:55→22:32)
[2016-05-17] MEDS: TPN 1,000 ML IV SCH ×2 (05:54→17:34)
[2016-05-17] MEDS: PANTOPRAZOLE (EC) 40 MG TAB PO SCH (05:55)
[2016-05-17 08:13] VITALS: BP 125/71; PULSE 98; RESP 18
[2016-05-17] MEDS: POLYETHYLENE GLYCOL 17 GM PACKET GTB SCH (08:22)
[2016-05-17] MEDS: ACCUCHECK XX SCH ×2 (09:04→20:57)
[2016-05-17] MEDS: HYDROmorphONE 1 MG/ML SYG IV PRN ×4 (09:05→21:36)
--- NOTE | 2016-05-17 12:04 | PN ---
Date/Time of Note Date/Time of Note DATE: 05/17/16 TIME: 12:02 Assessment/Plan Lines/Catheters IV Catheter Type (from Nrsg): PICC Line Clemons in Place (from Nrsg): No Assessment/Plan Assessment/Plan Ms. Apodaca is now POD#12 s/p colostomy closure, complicated colonic anastomosis , incisional hernia repair. She is steadily improving. She feels better and is passing flatus. She has been ambulating and her pain is under control. She still has >2 liters of NGT output, however. 1. Encourage ambulation 2. Continue NPO/TPN 3. Clamp NGT, checking residuals every 4 hours. If residuals are low, possible removal of NGT tomorrow. Subjective 24 Hr Interval Summary Constitutional: flatus, improved Feeding: NPO (except ice chips) Pain Control: well controlled Exam/Review of Systems Vital Signs Vitals Vital Signs Date Time Temp Pulse Resp B/P Pulse Ox O2 Delivery O2 Flow Rate FiO2 05/17/16 08:13 98.6 98 18 125/71 98 05/15/16 21:38 Nasal Cannula 2.0 Intake and Output 05/16/16 05/16/16 05/17/16 15:00 23:00 07:00 Intake Total 1106 ml 924 ml 1254 ml Output Total 3000 ml 2900 ml Balance 1106 ml -2076 ml -1646 ml Exam Constitutional: alert, oriented, well developed Gastrointestinal: other (midline wound with skin andrew in place, mild dry drainage on dressings, superficial necrosis of skin edges at mid wound), soft, tender (mild incisional TTP) Results Result Diagram: 05/16/16 0455 05/16/16 0455 TERENCE CROCKETT MD May 17, 2016 12:04
[2016-05-17 12:39] LABS: BASOPHILS % 0.3 % (0.0-2.0); EOSINOPHILS # 0.1 10^3/ul (0.0-0.5); EOSINOPHILS % 0.9 % (0.0-7.0); HEMATOCRIT 31.4 % (37.0-47.0); HEMOGLOBIN 10.7 g/dl (12.0-16.0); LYMPHOCYTES # 1.6 10^3/ul (0.8-2.9); LYMPHOCYTES % 13.9 % (15.0-51.0); MEAN CORPUSCULAR HEMOGLOBIN 29.5 pg (29.0-33.0); MEAN CORPUSCULAR HGB CONC 33.9 g/dl (32.0-37.0); MEAN CORPUSCULAR VOLUME 87.1 fl (82.0-101.0); MEAN PLATELET VOLUME 7.5 fl (7.4-10.4); MONOCYTE # 0.7 10^3/ul (0.3-0.9); MONOCYTES % 6.5 % (0.0-11.0); NEUTROPHILS % 78.4 % (39.0-77.0); PLATELET COUNT 694 10^3/UL (140-440); RED BLOOD COUNT 3.61 10^6/ul (4.20-5.40); RED CELL DISTRIBUTION WIDTH 13.4 % (11.5-14.5); UNCORRECTED WBC 11.5 10^3/ul (4.8-10.8); WHITE BLOOD COUNT 11.5 10^3/ul (4.8-10.8)
[2016-05-17 12:41] LABS: CONDITION 1
[2016-05-17 12:55] LABS: POTASSIUM 3.7 mmol/L (3.5-5.1)
[2016-05-17 12:58] LABS: CREATININE 0.54 mg/dl (0.44-1.00)
[2016-05-17 12:59] LABS: CALCIUM 9.6 mg/dl (8.4-10.2)
[2016-05-17] MEDS: FAT EMULSION 20% 250 ML IV SCH (17:34)
[2016-05-17 19:39] VITALS: BP 108/58; RESP 20
[2016-05-18] MEDS: METOCLOPRAMIDE 10 MG INJ IV SCH ×5 (00:57→23:23)
[2016-05-18] MEDS: HYDROmorphONE 1 MG/ML SYG IV PRN ×5 (05:09→20:45)
[2016-05-18 05:41] LABS: CHOL/HDL RATIO 3.2 RATIO
[2016-05-18 05:45] LABS: POTASSIUM 3.9 mmol/L (3.5-5.1)
[2016-05-18 05:48] LABS: CREATININE 0.53 mg/dl (0.44-1.00)
[2016-05-18 05:49] LABS: CALCIUM 9.3 mg/dl (8.4-10.2); MAGNESIUM 1.9 mg/dl (1.7-2.5); PHOSPHORUS 2.7 mg/dl (2.5-4.9)
[2016-05-18] MEDS: PANTOPRAZOLE (EC) 40 MG TAB PO SCH (05:57)
[2016-05-18] MEDS: TPN 1,000 ML IV SCH ×2 (06:36→20:46)
[2016-05-18] MEDS: POLYETHYLENE GLYCOL 17 GM PACKET GTB SCH (08:49)
[2016-05-18 09:13] VITALS: BP 109/66; PULSE 93; RESP 18
[2016-05-18] MEDS: ACCUCHECK XX SCH ×2 (09:13→20:46)
[2016-05-18] MEDS: FAT EMULSION 20% 250 ML IV SCH (13:14)
--- NOTE | 2016-05-18 18:50 | PN ---
Date/Time of Note Date/Time of Note DATE: 05/18/16 TIME: 18:46 Assessment/Plan VTE Prophylaxis VTE Prophylaxis Intervention: ambulation, LMWH Lines/Catheters IV Catheter Type (from Nrsg): PICC Line Central line still needed: Yes Urinary Cath still in place: No Assessment/Plan Chief Complaint/Hosp Course S/P surgery for colostomy, colo-vaginal fistula, diverticular disease, and hernia Problems: Assessment/Plan Will continue NG clamping overnight, as well as ambulation. TPN until she can eat. Consider gastrograffin per NG in the am. Subjective 24 Hr Interval Summary Free Text/Dictation Over the weekend the patient has started passing gas, the last being this am. She has passed some mucous. as well. the clamping of the NG has reduced the overall NG amount w/o adding nausea. Labs are WNL, as well as VS Gastrointestinal: pain (primarily the left side below the colostomy closure site) Exam/Review of Systems Vital Signs Vitals Vital Signs Date Time Temp Pulse Resp B/P Pulse Ox O2 Delivery O2 Flow Rate FiO2 05/18/16 09:13 98.0 93 18 109/66 98 Room Air 05/15/16 21:38 2.0 Intake and Output 05/17/16 05/17/16 05/18/16 15:00 23:00 07:00 Intake Total 122 ml 1000 ml Output Total 900 ml 200 ml Balance -778 ml 800 ml Exam Gastrointestinal: rebound or guarding, tender, No ascites, No bowel sounds, No distended, No firm, No hepatomegaly, No mass , No nl liver, spleen, No non-tender, No other, No soft, No splenomegaly, No surgical scars Results Result Diagram: 05/17/16 1220 05/18/16 0420 Results 24 hrs Laboratory Tests Test 05/17/16 20:15 05/18/16 04:20 05/18/16 09:09 Bedside Glucose 118 114 Anion Gap 12 Blood Urea Nitrogen 24 H Calcium Level 9.3 Carbon Dioxide Level 30 Chloride Level 103 Cholesterol Level 122 Cholesterol/HDL Ratio 3.2 Creatinine 0.53 Glucose Level 128 HDL Cholesterol 37 LDL Cholesterol, Calculated 41 Magnesium Level 1.9 Phosphorus Level 2.7 Potassium Level 3.9 Sodium Level 141 Triglycerides Level 218 H Medications Medications Current Medications Diphenhydramine HCl (Benadryl) 25 mg Q6H PRN IV ITCHING; Start 05/05/16 at 19: 30 Ondansetron HCl (Zofran Inj) 4 mg Q6H PRN IV NAUSEA AND/OR VOMITING Last administered on 05/13/16 11:44; Admin Dose 4 MG; Start 05/05/16 at 19:30 Pantoprazole (Protonix Tab) 40 mg DAILY@06 PO Last administered on 05/12/16 05 :38; Admin Dose 40 MG; Start 05/06/16 at 06:00 Naloxone HCl (Narcan) 0.2 mg Q2M PRN IV RR 8 BREATHS/MIN OR LESS; Start at 19:30 Lorazepam (Ativan) 0.5 mg Q6H PRN IV AGITATION; Start 05/05/16 at 19:30 Oxycodone/ Acetaminophen (Percocet (5/ 325)) 1 tab Q4H PRN PO PAIN Last administered on 05/12/16 13:07; Admin Dose 1 TAB; Start 05/09/16 at 11:30 Polyethylene Glycol (Miralax) 8.5 gm DAILY GTB Last administered on 05/12/16 08:18; Admin Dose 8.5 GM; Start 05/11/16 at 13:30 IV Flush 10 ml 10 ml PRN PRN IV IV PROTOCOL; Start 05/13/16 at 11:00 Total Parenteral Nutrition 1,000 ml @ 80 mls/hr [id number] IV Last administered on 05/18/16 06:36; Admin Dose 80 MLS/HR; Start 05/13/16 at 14:00 Fat Emulsion Intravenous (Liposyn Ii 20%) 250 ml @ 12 mls/hr Q24H IV Last administered on 05/18/16 13:14; Admin Dose 12 MLS/HR; Start 05/13/16 at 19:00 Diagnostic Test (Pha) (Accucheck) 1 ea Q12 XX Last administered on 05/18/16 09: 13; Admin Dose 1 EA; Start 05/14/16 at 21:00 Metoclopramide HCl (Reglan) 10 mg Q6 IV Last administered on 05/18/16 17:27; Admin Dose 10 MG; Start 05/16/16 at 18:00 Hydromorphone HCl (Dilaudid) 0.4 mg Q3H PRN IV PAIN Last administered on t 17:28; Admin Dose 0.4 MG; Start 05/18/16 at 15:30 KUMAR ARENAS MD May 18, 2016 18:50
[2016-05-18 20:13] VITALS: BP 107/78; RESP 18
[2016-05-18] MEDS: LORAZEPAM 2 MG INJ IV PRN (23:23)
[2016-05-19] MEDS: METOCLOPRAMIDE 10 MG INJ IV SCH ×4 (05:20→22:55)
[2016-05-19] MEDS: PANTOPRAZOLE 40 MG INJ IV SCH (05:20)
[2016-05-19 05:48] LABS: POTASSIUM 4.3 mmol/L (3.5-5.1)
[2016-05-19 07:02] LABS: BASOPHIL # 0.1 10^3/ul (0.0-0.1); BASOPHILS % 0.8 % (0.0-2.0); CONDITION 1; EOSINOPHILS # 0.2 10^3/ul (0.0-0.5); EOSINOPHILS % 3.4 % (0.0-7.0); HEMATOCRIT 26.6 % (37.0-47.0); HEMOGLOBIN 9.1 g/dl (12.0-16.0); LYMPHOCYTES # 1.4 10^3/ul (0.8-2.9); LYMPHOCYTES % 19.8 % (15.0-51.0); MEAN CORPUSCULAR HEMOGLOBIN 29.7 pg (29.0-33.0); MEAN CORPUSCULAR VOLUME 87.2 fl (82.0-101.0); MEAN PLATELET VOLUME 7.8 fl (7.4-10.4); MONOCYTE # 0.7 10^3/ul (0.3-0.9); NEUTROPHIL # 4.6 10^3/ul (1.6-7.5); PLATELET COUNT 577 10^3/UL (140-440); RED BLOOD COUNT 3.05 10^6/ul (4.20-5.40); RED CELL DISTRIBUTION WIDTH 13.1 % (11.5-14.5); UNCORRECTED WBC 6.9 10^3/ul (4.8-10.8); WHITE BLOOD COUNT 6.9 10^3/ul (4.8-10.8)
[2016-05-19 08:14] VITALS: BP 117/74; RESP 19
[2016-05-19 08:18] VITALS: BP 134/76; RESP 19
[2016-05-19] MEDS: ACCUCHECK XX SCH ×2 (09:00→21:14)
[2016-05-19] MEDS: TPN 1,000 ML IV SCH ×2 (09:22→22:54)
[2016-05-19] MEDS: POLYETHYLENE GLYCOL 17 GM PACKET GTB SCH (09:29)
[2016-05-19] MEDS: HYDROmorphONE 1 MG/ML SYG IV PRN ×3 (09:31→21:47)
[2016-05-19] MEDS: ONDANSETRON 4 MG INJ IV PRN (13:24)
[2016-05-19] MEDS ORDERED: MAGNESIUM HYDROXIDE 30ML CUP PO ONE (16:30)
--- NOTE | 2016-05-19 16:40 | PN ---
Date/Time of Note Date/Time of Note DATE: 05/19/16 TIME: 16:37 Assessment/Plan VTE Prophylaxis VTE Prophylaxis Intervention: ambulation, LMWH Lines/Catheters IV Catheter Type (from Nrsg): PICC Line Central line still needed: Yes Urinary Cath still in place: No Assessment/Plan Chief Complaint/Hosp Course S/P surgery for colostomy, colo-vaginal fistula, diverticular disease, and hernia Problems: Assessment/Plan Will add some MOM to NG this afternoon. Will check an XRAY Can change TPN to as directed / suggested by dietary Subjective 24 Hr Interval Summary Free Text/Dictation Afebile, VSS. POD #14. Labs are WNL. Passed a little gas today. No NG output today. Gastrointestinal: pain Exam/Review of Systems Vital Signs Vitals Vital Signs Date Time Temp Pulse Resp B/P Pulse Ox O2 Delivery O2 Flow Rate FiO2 05/19/16 08:18 98.0 65 19 134/76 98 05/18/16 09:13 Room Air 05/15/16 21:38 2.0 Intake and Output 05/18/16 05/18/16 05/19/16 15:00 23:00 07:00 Intake Total 1104 ml 1104 ml Output Total 780 ml 1040 ml Balance 324 ml 64 ml Exam Gastrointestinal: distended, No ascites, No bowel sounds, No firm, No hepatomegaly, No mass, No nl liver, spleen, No non-tender, No other, No rebound or guarding, No soft, No splenomegaly, No surgical scars, No tender Results Result Diagram: 05/19/16 0435 05/19/16 0435 Results 24 hrs Laboratory Tests Test 05/18/16 20:44 05/19/16 04:35 05/19/16 09:21 Bedside Glucose 112 131 Anion Gap 12 Basophils # 0.1 Basophils % 0.8 Carbon Dioxide Level 26 Chloride Level 106 Eosinophils # 0.2 Eosinophils % 3.4 Hematocrit 26.6 L Hemoglobin 9.1 L Lymphocytes # 1.4 Lymphocytes % 19.8 Mean Corpuscular Hemoglobin 29.7 Mean Corpuscular Hemoglobin Concent 34.0 Mean Corpuscular Volume 87.2 Mean Platelet Volume 7.8 Monocytes # 0.7 Monocytes % 10.0 Neutrophils # 4.6 Neutrophils % 66.0 Nucleated Red Blood Cells # 0.0 Nucleated Red Blood Cells % 0.0 Platelet Count 577 H Potassium Level 4.3 Red Blood Count 3.05 L Red Cell Distribution Width 13.1 Sodium Level 140 White Blood Count 6.9 # Medications Medications Current Medications Diphenhydramine HCl (Benadryl) 25 mg Q6H PRN IV ITCHING; Start 05/05/16 at 19: 30 Ondansetron HCl (Zofran Inj) 4 mg Q6H PRN IV NAUSEA AND/OR VOMITING Last administered on 05/19/16 13:24; Admin Dose 4 MG; Start 05/05/16 at 19:30 Naloxone HCl (Narcan) 0.2 mg Q2M PRN IV RR 8 BREATHS/MIN OR LESS; Start at 19:30 Lorazepam (Ativan) 0.5 mg Q6H PRN IV AGITATION; Start 05/05/16 at 19:30 Oxycodone/ Acetaminophen (Percocet (5/ 325)) 1 tab Q4H PRN PO PAIN Last administered on 05/12/16 13:07; Admin Dose 1 TAB; Start 05/09/16 at 11:30 Polyethylene Glycol (Miralax) 8.5 gm DAILY GTB Last administered on 05/19/16 09 :29; Admin Dose 8.5 GM; Start 05/11/16 at 13:30 IV Flush 10 ml 10 ml PRN PRN IV IV PROTOCOL; Start 05/13/16 at 11:00 Total Parenteral Nutrition 1,000 ml @ 80 mls/hr [id number] IV Last administered on 05/19/16 09:22; Admin Dose 80 MLS/HR; Start 05/13/16 at 14:00 Fat Emulsion Intravenous (Liposyn Ii 20%) 250 ml @ 12 mls/hr Q24H IV Last administered on 05/18/16 13:14; Admin Dose 12 MLS/HR; Start 05/13/16 at 19:00 Diagnostic Test (Pha) (Accucheck) 1 ea Q12 XX Last administered on 05/19/16 09: 00; Admin Dose 1 EA; Start 05/14/16 at 21:00 Metoclopramide HCl (Reglan) 10 mg Q6 IV Last administered on 05/19/16 12:07; Admin Dose 10 MG; Start 05/16/16 at 18:00 Hydromorphone HCl (Dilaudid) 0.4 mg Q3H PRN IV PAIN Last administered on 14:37; Admin Dose 0.4 MG; Start 05/18/16 at 15:30 Pantoprazole (Protonix Iv) 40 mg DAILY@06 IV Last administered on 05/19/16 05: 20; Admin Dose 40 MG; Start 05/18/16 at 19:14 Magnesium Hydroxide (Milk Of Mag) 30 ml ONCE ONCE PO ; Start 05/19/16 at 16:30; Stop 05/19/16 at 16:31 KUMAR ARENAS MD May 19, 2016 16:40
[2016-05-19] MEDS: FAT EMULSION 20% 250 ML IV SCH (17:27)
[2016-05-19 20:15] VITALS: BP 118/78; RESP 20
--- NOTE | 2016-05-19 20:55 | RADRPT ---
PROCEDURE: XR Abdomen. CLINICAL INDICATION: Ileus TECHNIQUE: AP erect and supine abdomen x-rays, 3 images submitted to the PACS for review. COMPARISON: CT abdomen and pelvis 05/15/2016 FINDINGS: The nasogastric tube has been retracted the distal tip is now at the esophagogastric junction and ad vancement of the catheter by 6-7 cm is recommended. Scattered gas / fluid levels in the jejunum are present with gas seen in the colon, findings compatible with an adynamic ileus that is not changed s julio the prior examination, no complete bowel obstruction is suggested. No visceromegaly, soft tissu e mass or pathologic calcification is demonstrated. The osseous structures are unremarkable. Multiple andrew in the right upper quadrant with verticall y oriented skin andrew. At the abdominal midline are again noted. RPTAT:HJJR IMPRESSION: 1. Retraction of the nasogastric tube compared to the CT of 05/15/2016, the tip at the esophagogastr ic junction and advancement of the catheter is recommended. 2. Adynamic ileus pattern similar to the prior CT without evidence of complete bowel obstruction in this patient with changes of recent surgery. 3. Results are discussed by telephone with the the patient's nurse, Yosef, at 20:54 Physician Terence Date Time Electronically viewed and signed by Physician Terence on 05/19/2016 20:55 /
--- NOTE | 2016-05-19 21:50 | RADRPT ---
PROCEDURE: XR Chest. CLINICAL INDICATION: Nasogastric tube placement TECHNIQUE: A single portable view of the chest was obtained. COMPARISON: 05/13/2016 FINDINGS: A nasogastric tube is seen in the gastric lumen in satisfactory position. The cardiomediastinal leizabeth houette is within normal limits. The lungs and pleural spaces are clear. The soft tissues and osse ous structures are unremarkable. Cholecystectomy clips are again seen. IMPRESSION: No acute cardiopulmonary disease. Satisfactory placement of a nasogastric tube. RPTAT: HPNM Physician Angus Date Time Electronically viewed and signed by Physician Angus on 05/19/2016 21:50 /
[2016-05-19] MEDS: LORAZEPAM 2 MG INJ IV PRN (22:55)
[2016-05-20] MEDS: METOCLOPRAMIDE 10 MG INJ IV SCH ×3 (04:51→17:55)
[2016-05-20] MEDS: PANTOPRAZOLE 40 MG INJ IV SCH (04:51)
[2016-05-20] MEDS: HYDROmorphONE 1 MG/ML SYG IV PRN ×4 (04:51→21:14)
[2016-05-20 08:20] VITALS: BP 110/63; RESP 18
[2016-05-20] MEDS: ACCUCHECK XX SCH ×2 (08:51→21:13)
[2016-05-20] MEDS: POLYETHYLENE GLYCOL 17 GM PACKET GTB SCH (08:51)
[2016-05-20] MEDS: FAT EMULSION 20% 250 ML IV SCH (08:51)
[2016-05-20] MEDS: TPN 1,000 ML IV SCH (13:15)
[2016-05-20] MEDS ORDERED: MAGNESIUM HYDROXIDE 30ML CUP PO ONE (19:00)
--- NOTE | 2016-05-20 19:03 | PN ---
Date/Time of Note Date/Time of Note DATE: 05/20/16 TIME: 19:00 Assessment/Plan VTE Prophylaxis VTE Prophylaxis Intervention: ambulation, LMWH Lines/Catheters IV Catheter Type (from Nrsg): PICC Line Central line still needed: Yes Urinary Cath still in place: No Assessment/Plan Chief Complaint/Hosp Course S/P surgery for colostomy, colo-vaginal fistula, diverticular disease, and hernia Problems: Assessment/Plan Add some MOM tonight, and start clear liquids Reduce TPN Subjective 24 Hr Interval Summary Free Text/Dictation POD #15 Passed some gas and a small amt of stool ( liquid). Feels a little better No nausea Gastrointestinal: pain (improved), passing stool Exam/Review of Systems Vital Signs Vitals Vital Signs Date Time Temp Pulse Resp B/P Pulse Ox O2 Delivery O2 Flow Rate FiO2 05/20/16 08:20 98.6 89 18 110/63 98 05/18/16 09:13 Room Air Intake and Output 05/19/16 05/19/16 05/20/16 15:00 23:00 07:00 Intake Total 0 ml 1024 ml Output Total 30 ml 75 ml Balance -30 ml 949 ml Exam Gastrointestinal: soft, surgical scars (healing) Results Result Diagram: 05/19/16 0435 05/19/16 0435 Results 24 hrs Laboratory Tests Test 05/19/16 21:01 05/20/16 09:19 Bedside Glucose 120 127 Medications Medications Current Medications Diphenhydramine HCl (Benadryl) 25 mg Q6H PRN IV ITCHING; Start 05/05/16 at 19: 30 Ondansetron HCl (Zofran Inj) 4 mg Q6H PRN IV NAUSEA AND/OR VOMITING Last administered on 05/19/16 13:24; Admin Dose 4 MG; Start 05/05/16 at 19:30 Naloxone HCl (Narcan) 0.2 mg Q2M PRN IV RR 8 BREATHS/MIN OR LESS; Start at 19:30 Lorazepam (Ativan) 0.5 mg Q6H PRN IV AGITATION; Start 05/05/16 at 19:30 Oxycodone/ Acetaminophen (Percocet (5/ 325)) 1 tab Q4H PRN PO PAIN Last administered on 05/12/16 13:07; Admin Dose 1 TAB; Start 05/09/16 at 11:30 Polyethylene Glycol (Miralax) 8.5 gm DAILY GTB Last administered on 05/20/16 08 :51; Admin Dose 8.5 GM; Start 05/11/16 at 13:30 IV Flush 10 ml 10 ml PRN PRN IV IV PROTOCOL; Start 05/13/16 at 11:00 Total Parenteral Nutrition 1,000 ml @ 80 mls/hr [id number] IV Last administered on 05/20/16 13:15; Admin Dose 80 MLS/HR; Start 05/13/16 at 14:00 Fat Emulsion Intravenous (Liposyn Ii 20%) 250 ml @ 12 mls/hr Q24H IV Last administered on 05/20/16 08:51; Admin Dose 12 MLS/HR; Start 05/13/16 at 19:00 Diagnostic Test (Pha) (Accucheck) 1 ea Q12 XX Last administered on 05/20/16 08: 51; Admin Dose 1 EA; Start 05/14/16 at 21:00 Metoclopramide HCl (Reglan) 10 mg Q6 IV Last administered on 05/20/16 17:55; Admin Dose 10 MG; Start 05/16/16 at 18:00 Hydromorphone HCl (Dilaudid) 0.4 mg Q3H PRN IV PAIN Last administered on 16:33; Admin Dose 0.4 MG; Start 05/18/16 at 15:30 Pantoprazole (Protonix Iv) 40 mg DAILY@06 IV Last administered on 05/20/16 04: 51; Admin Dose 40 MG; Start 05/18/16 at 19:14 KUMAR ARENAS MD May 20, 2016 19:03
[2016-05-20 19:52] VITALS: BP 110/75; RESP 20
[2016-05-20] MEDS: LORAZEPAM 2 MG INJ IV PRN (22:22)
[2016-05-21] MEDS: METOCLOPRAMIDE 10 MG INJ IV SCH ×4 (00:20→18:00)
[2016-05-21] MEDS: TPN 1,000 ML IV SCH (03:58)
[2016-05-21] MEDS: HYDROmorphONE 1 MG/ML SYG IV PRN ×2 (06:12→12:35)
[2016-05-21] MEDS: PANTOPRAZOLE 40 MG INJ IV SCH (06:12)
[2016-05-21 06:15] LABS: BASOPHILS % 0.7 % (0.0-2.0); EOSINOPHILS # 0.2 10^3/ul (0.0-0.5); EOSINOPHILS % 3.4 % (0.0-7.0); HEMATOCRIT 27.6 % (37.0-47.0); HEMOGLOBIN 9.5 g/dl (12.0-16.0); LYMPHOCYTES # 1.4 10^3/ul (0.8-2.9); LYMPHOCYTES % 22.5 % (15.0-51.0); MEAN CORPUSCULAR HEMOGLOBIN 29.8 pg (29.0-33.0); MEAN CORPUSCULAR HGB CONC 34.6 g/dl (32.0-37.0); MEAN CORPUSCULAR VOLUME 86.2 fl (82.0-101.0); MONOCYTE # 0.7 10^3/ul (0.3-0.9); MONOCYTES % 11.2 % (0.0-11.0); NEUTROPHIL # 3.9 10^3/ul (1.6-7.5); NEUTROPHILS % 62.2 % (39.0-77.0); RED CELL DISTRIBUTION WIDTH 13.8 % (11.5-14.5); UNCORRECTED WBC 6.3 10^3/ul (4.8-10.8); WHITE BLOOD COUNT 6.3 10^3/ul (4.8-10.8)
[2016-05-21 07:13] LABS: CONDITION 1; PLATELET COUNT 613 10^3/UL (140-440)
[2016-05-21 08:23] VITALS: BP 107/67; RESP 18
[2016-05-21] MEDS: POLYETHYLENE GLYCOL 17 GM PACKET GTB SCH (09:00)
[2016-05-21] MEDS: ACCUCHECK XX SCH ×2 (09:33→21:00)
--- NOTE | 2016-05-21 17:31 | PN ---
Date/Time of Note Date/Time of Note DATE: 05/21/16 TIME: 17:27 Assessment/Plan VTE Prophylaxis VTE Prophylaxis Intervention: ambulation, LMWH Lines/Catheters IV Catheter Type (from Nrs): PICC Line Central line still needed: Yes Urinary Cath still in place: No Assessment/Plan Chief Complaint/Hosp Course S/P surgery for colostomy, colo-vaginal fistula, diverticular disease, and hernia Problems: Assessment/Plan Will slow and then DC the TPN. Tomorrow we will advance to a full liquid diet. Continue the daily Miralax Subjective 24 Hr Interval Summary Free Text/Dictation The pt is now POD #16, and started a clear liq diet last night. She has had 2 small diarrheal stools and " feels better". She still has abdominal pain, but is walking well. She denies nausea and emesis. Pain control is good Gastrointestinal: diarrhea, nausea, passing stool, vomiting, No blood, No constipation, No decreased appetite, No flatus, No no complaints , No other, No pain Exam/Review of Systems Vital Signs Vitals Vital Signs Date Time Temp Pulse Resp B/P Pulse Ox O2 Delivery O2 Flow Rate FiO2 05/21/16 08:23 97.7 87 18 107/67 97 05/18/16 09:13 Room Air Intake and Output 05/20/16 05/20/16 05/21/16 15:00 23:00 07:00 Intake Total 625 ml 985 ml Output Total 300 ml 750 ml Balance 325 ml 235 ml Exam Additional Comments There is no fever, and the CBC is WNL Results Result Diagram: 05/21/16 0456 05/19/16 0435 Results 24 hrs Laboratory Tests Test 05/20/16 21:03 05/21/16 04:56 05/21/16 09:30 Bedside Glucose 119 119 Basophils # 0.0 Basophils % 0.7 Eosinophils # 0.2 Eosinophils % 3.4 Hematocrit 27.6 L Hemoglobin 9.5 L Lymphocytes # 1.4 Lymphocytes % 22.5 Mean Corpuscular Hemoglobin 29.8 Mean Corpuscular Hemoglobin Concent 34.6 Mean Corpuscular Volume 86.2 Mean Platelet Volume 8.0 Monocytes # 0.7 Monocytes % 11.2 H Neutrophils # 3.9 Neutrophils % 62.2 Nucleated Red Blood Cells # 0.0 Nucleated Red Blood Cells % 0.0 Platelet Count 613 H Red Blood Count 3.20 L Red Cell Distribution Width 13.8 White Blood Count 6.3 Medications Medications Current Medications Diphenhydramine HCl (Benadryl) 25 mg Q6H PRN IV ITCHING; Start 05/05/16 at 19: 30 Ondansetron HCl (Zofran Inj) 4 mg Q6H PRN IV NAUSEA AND/OR VOMITING Last administered on 05/19/16 13:24; Admin Dose 4 MG; Start 05/05/16 at 19:30 Naloxone HCl (Narcan) 0.2 mg Q2M PRN IV RR 8 BREATHS/MIN OR LESS; Start at 19:30 Lorazepam (Ativan) 0.5 mg Q6H PRN IV AGITATION; Start 05/05/16 at 19:30 Oxycodone/ Acetaminophen (Percocet (5/ 325)) 1 tab Q4H PRN PO PAIN Last administered on 05/12/16 13:07; Admin Dose 1 TAB; Start 05/09/16 at 11:30 Polyethylene Glycol (Miralax) 8.5 gm DAILY GTB Last administered on 05/20/16 08 :51; Admin Dose 8.5 GM; Start 05/11/16 at 13:30 IV Flush (NS 10 ml) 10 ml PRN PRN IV IV PROTOCOL; Start 05/13/16 at 11:00 Diagnostic Test (Pha) (Accucheck) 1 ea Q12 XX Last administered on 05/21/16 09: 33; Admin Dose 1 EA; Start 05/14/16 at 21:00 Metoclopramide HCl (Reglan) 10 mg Q6 IV Last administered on 05/21/16 12:31; Admin Dose 10 MG; Start 05/16/16 at 18:00 Hydromorphone HCl (Dilaudid) 0.4 mg Q3H PRN IV PAIN Last administered on 12:35; Admin Dose 0.4 MG; Start 05/18/16 at 15:30 Pantoprazole (Protonix Iv) 40 mg DAILY@06 IV Last administered on 05/21/16 06: 12; Admin Dose 40 MG; Start 05/18/16 at 19:14 KUMAR ARENAS MD May 21, 2016 17:31
[2016-05-21 19:25] VITALS: BP 104/61; RESP 18
[2016-05-21] MEDS: LORAZEPAM 2 MG INJ IV PRN (22:15)
[2016-05-22] MEDS: METOCLOPRAMIDE 10 MG INJ IV SCH ×5 (00:23→22:00)
[2016-05-22] MEDS: OXYCODONE/ACETAMINOPHEN (5/325) TAB PO PRN ×3 (00:31→16:30)
[2016-05-22 05:33] LABS: POTASSIUM 3.9 mmol/L (3.5-5.1)
[2016-05-22 05:36] LABS: CREATININE 0.52 mg/dl (0.44-1.00)
[2016-05-22 05:37] LABS: CALCIUM 8.7 mg/dl (8.4-10.2); MAGNESIUM 1.9 mg/dl (1.7-2.5); PHOSPHORUS 3.5 mg/dl (2.5-4.9)
[2016-05-22] MEDS: PANTOPRAZOLE 40 MG INJ IV SCH (05:57)
[2016-05-22] MEDS: ACCUCHECK XX SCH ×2 (09:26→20:52)
[2016-05-22] MEDS: POLYETHYLENE GLYCOL 17 GM PACKET GTB SCH (09:34)
--- NOTE | 2016-05-22 18:05 | PN ---
Date/Time of Note Date/Time of Note DATE: 05/22/16 TIME: 18:01 Assessment/Plan VTE Prophylaxis VTE Prophylaxis Intervention: ambulation, LMWH Lines/Catheters IV Catheter Type (from Nrsg): PICC Line Central line still needed: Yes Urinary Cath still in place: No Assessment/Plan Chief Complaint/Hosp Course S/P surgery for colostomy, colo-vaginal fistula, diverticular disease, and hernia Problems: Assessment/Plan Will advance diet to soft and see if tolerated. Continue MIralax. Add Zn oxide to protect her perianus. Reduce reglan Subjective 24 Hr Interval Summary Free Text/Dictation The pt is doing well. She complains of gas cramps prior to a loose stool, and relieved w/ passage of the stool. She has had multiple loose stools, and is tolerating a full liquid diet. VSS. Pain is controlled w/ po meds Gastrointestinal: diarrhea (frequent loose , but small stools) Exam/Review of Systems Vital Signs Vitals Vital Signs Date Time Temp Pulse Resp B/P Pulse Ox O2 Delivery O2 Flow Rate FiO2 05/21/16 19:25 98.3 86 18 104/61 99 05/18/16 09:13 Room Air Intake and Output 05/21/16 05/21/16 05/22/16 14:59 22:59 06:59 Intake Total 2340 ml 240 ml Output Total 200 ml Balance 2340 ml 40 ml Exam Gastrointestinal: bowel sounds, soft Results Result Diagram: 05/21/16 0456 05/22/16 0438 Results 24 hrs Laboratory Tests Test 05/21/16 20:28 05/22/16 04:38 05/22/16 07:54 Bedside Glucose 107 90 Anion Gap 12 Blood Urea Nitrogen 9 Calcium Level 8.7 Carbon Dioxide Level 27 Chloride Level 104 Creatinine 0.52 Glucose Level 87 Magnesium Level 1.9 Phosphorus Level 3.5 Potassium Level 3.9 Sodium Level 139 Medications Medications Current Medications Diphenhydramine HCl (Benadryl) 25 mg Q6H PRN IV ITCHING; Start 05/05/16 at 19: 30 Ondansetron HCl (Zofran Inj) 4 mg Q6H PRN IV NAUSEA AND/OR VOMITING Last administered on 05/19/16t 13:24; Admin Dose 4 MG; Start 05/05/16 at 19:30 Naloxone HCl (Narcan) 0.2 mg Q2M PRN IV RR 8 BREATHS/MIN OR LESS; Start at 19:30 Lorazepam (Ativan) 0.5 mg Q6H PRN IV AGITATION; Start 05/05/16 at 19:30 Oxycodone/ Acetaminophen (Percocet (5/ 325)) 1 tab Q4H PRN PO PAIN Last administered on 05/22/16 16:30; Admin Dose 1 TAB; Start 05/09/16 at 11:30 Polyethylene Glycol (Miralax) 8.5 gm DAILY GTB Last administered on 05/22/16 09:34; Admin Dose 8.5 GM; Start 05/11/16 at 13:30 IV Flush (NS 10 ml) 10 ml PRN PRN IV IV PROTOCOL; Start 05/13/16 at 11:00 Diagnostic Test (Pha) (Accucheck) 1 ea Q12 XX Last administered on 05/22/16 09 :26; Admin Dose 1 EA; Start 05/14/16 at 21:00 Metoclopramide HCl (Reglan) 10 mg Q6 IV Last administered on 05/22/16 17:32; Admin Dose 10 MG; Start 05/16/16 at 18:00 Hydromorphone HCl (Dilaudid) 0.4 mg Q3H PRN IV PAIN Last administered on 12:35; Admin Dose 0.4 MG; Start 05/18/16 at 15:30 Pantoprazole (Protonix Iv) 40 mg DAILY@06 IV Last administered on 05/22/16 05: 57; Admin Dose 40 MG; Start 05/18/16 at 19:14 KUMAR ARENAS MD May 22, 2016 18:05
[2016-05-22 19:25] VITALS: BP 102/54; RESP 18
[2016-05-22] MEDS: ZINC OXIDE 20% 30 GM OINT TOP SCH (20:52)
[2016-05-22] MEDS: HYDROmorphONE 1 MG/ML SYG IV PRN (21:07)
[2016-05-22] MEDS: LORAZEPAM 2 MG INJ IV PRN (21:08)
[2016-05-23] MEDS: METOCLOPRAMIDE 10 MG INJ IV SCH ×2 (02:57→06:26)
[2016-05-23] MEDS: HYDROmorphONE 1 MG/ML SYG IV PRN ×2 (02:57→20:14)
[2016-05-23 05:31] LABS: ADD SCAN DIFF NO; BASOPHILS % 0.9 % (0.0-2.0); EOSINOPHILS # 0.1 10^3/ul (0.0-0.5); EOSINOPHILS % 2.8 % (0.0-7.0); HEMATOCRIT 26.8 % (37.0-47.0); HEMOGLOBIN 8.5 g/dl (12.0-16.0); LYMPHOCYTES # 1.3 10^3/ul (0.8-2.9); LYMPHOCYTES % 28.7 % (15.0-51.0); MEAN CORPUSCULAR HEMOGLOBIN 28.1 pg (29.0-33.0); MEAN CORPUSCULAR HGB CONC 31.7 g/dl (32.0-37.0); MEAN CORPUSCULAR VOLUME 88.7 fl (82.0-101.0); MEAN PLATELET VOLUME 9.5 fl (7.4-10.4); MONOCYTE # 0.6 10^3/ul (0.3-0.9); MONOCYTES % 13.6 % (0.0-11.0); NEUTROPHIL # 2.5 10^3/ul (1.6-7.5); NEUTROPHILS % 53.4 % (39.0-77.0); PLATELET COUNT 541 10^3/UL (140-415); RED BLOOD COUNT 3.02 10^6/ul (4.20-5.40); RED CELL DISTRIBUTION WIDTH 13.2 % (11.5-14.5); WHITE BLOOD COUNT 4.6 10^3/ul (4.8-10.8)
[2016-05-23] MEDS: PANTOPRAZOLE 40 MG INJ IV SCH (06:26)
[2016-05-23 07:47] VITALS: BP 92/51; RESP 16
[2016-05-23] MEDS: ACCUCHECK XX SCH ×2 (08:54→20:07)
[2016-05-23] MEDS: POLYETHYLENE GLYCOL 17 GM PACKET GTB SCH (08:54)
[2016-05-23] MEDS: ZINC OXIDE 20% 30 GM OINT TOP SCH (08:57)
--- NOTE | 2016-05-23 10:24 | PN ---
Date/Time of Note Date/Time of Note DATE: 05/23/16 TIME: 10:20 Assessment/Plan VTE Prophylaxis VTE Prophylaxis Intervention: ambulation, LMWH, SCD's Lines/Catheters IV Catheter Type (from Nrsg): Peripheral IV Urinary Cath still in place: No Assessment/Plan Chief Complaint/Hosp Course 61YO Woman h/o diverticulitis, multiple operations now s/p takedown of transverse loop colostomy, reversal of Rubi, mesh repair of hernia doilg very well. Walking, eating regular food, passing gas and stool, urinating. Plan is to continue ambulation, diet, possible D/C in AM to home with services. Case managment consult ordered. D/Cing Reglan. Encourage PO pain meds PRN. Problems: Subjective 24 Hr Interval Summary Free Text/Dictation Pt and family state she's OK. Found walking in halls, passing gas and stool, urinating, pain controlled, no NV. Constitutional: no complaints Exam/Review of Systems Vital Signs Vitals Vital Signs Date Time Temp Pulse Resp B/P Pulse Ox O2 Delivery O2 Flow Rate FiO2 05/23/16 07:47 98.7 88 16 92/51 97 Intake and Output 05/22/16 05/22/16 05/23/16 15:00 23:00 07:00 Intake Total 1200 ml 500 ml Output Total 700 ml Balance 1200 ml -200 ml Exam Constitutional: alert Respiratory: clear to auscultation Cardiovascular: regular rate and rhythm Gastrointestinal: soft (Wound with midline sloughing but intact, abdomen soft, mildly TTP, NT/NM) Results Result Diagram: 05/23/16 0447 05/22/16 0438 Results 24 hrs Laboratory Tests Test 05/22/16 20:46 05/23/16 04:47 05/23/16 08:48 Bedside Glucose 113 88 Basophils # 0.0 Basophils % 0.9 Eosinophils # 0.1 Eosinophils % 2.8 Hematocrit 26.8 L Hemoglobin 8.5 L Lymphocytes # 1.3 Lymphocytes % 28.7 Mean Corpuscular Hemoglobin 28.1 L Mean Corpuscular Hemoglobin Concent 31.7 L Mean Corpuscular Volume 88.7 Mean Platelet Volume 9.5 Monocytes # 0.6 Monocytes % 13.6 H Neutrophils # 2.5 Neutrophils % 53.4 Nucleated Red Blood Cells # 0.0 Nucleated Red Blood Cells % 0.0 Platelet Count 541 H Red Blood Count 3.02 L Red Cell Distribution Width 13.2 White Blood Count 4.6 #L Medications Medications Current Medications Diphenhydramine HCl (Benadryl) 25 mg Q6H PRN IV ITCHING; Start 05/05/16 at 19: 30 Ondansetron HCl (Zofran Inj) 4 mg Q6H PRN IV NAUSEA AND/OR VOMITING Last administered on 05/19/16 13:24; Admin Dose 4 MG; Start 05/05/16 at 19:30 Naloxone HCl (Narcan) 0.2 mg Q2M PRN IV RR 8 BREATHS/MIN OR LESS; Start at 19:30 Lorazepam (Ativan) 0.5 mg Q6H PRN IV AGITATION; Start 05/05/16 at 19:30 Oxycodone/ Acetaminophen (Percocet (5/ 325)) 1 tab Q4H PRN PO PAIN Last administered on 05/22/16 16:30; Admin Dose 1 TAB; Start 05/09/16 at 11:30 Polyethylene Glycol (Miralax) 8.5 gm DAILY GTB Last administered on 05/23/16 08:54; Admin Dose 8.5 GM; Start 05/11/16 at 13:30 IV Flush (NS 10 ml) 10 ml PRN PRN IV IV PROTOCOL; Start 05/13/16 at 11:00 Diagnostic Test (Pha) (Accucheck) 1 ea Q12 XX Last administered on 05/23/16 08 :54; Admin Dose 1 EA; Start 05/14/16 at 21:00 Hydromorphone HCl (Dilaudid) 0.4 mg Q3H PRN IV PAIN Last administered on 02:57; Admin Dose 0.4 MG; Start 05/18/16 at 15:30 Pantoprazole (Protonix Iv) 40 mg DAILY@06 IV Last administered on 05/23/16 06: 26; Admin Dose 40 MG; Start 05/18/16 at 19:14 Zinc Oxide (Zinc Oxide Oint) 1 applic DAILY TOP Last administered on 05/23/16 08:57; Admin Dose 1 APPLIC; Start 05/22/16 at 20:00 Metoclopramide HCl (Reglan) 5 mg Q8 IV Last administered on 05/23/16 06:26; Admin Dose 5 MG; Start 05/22/16 at 22:00 ROB NGUYEN M.D. May 23, 2016 10:24
[2016-05-23] MEDS: OXYCODONE/ACETAMINOPHEN (5/325) TAB PO PRN ×2 (10:55→18:22)
[2016-05-23 19:43] VITALS: BP 125/56; PULSE 96; RESP 18
[2016-05-23] MEDS: LORAZEPAM 2 MG INJ IV PRN (21:41)
[2016-05-24 05:34] LABS: POTASSIUM 3.8 mmol/L (3.5-5.1)
[2016-05-24 05:36] LABS: CREATININE 0.52 mg/dl (0.44-1.00)
[2016-05-24 05:37] LABS: CALCIUM 8.9 mg/dl (8.4-10.2)
[2016-05-24] MEDS: PANTOPRAZOLE 40 MG INJ IV SCH (05:42)
[2016-05-24 05:45] LABS: BASOPHILS % 0.7 % (0.0-2.0); EOSINOPHILS # 0.2 10^3/ul (0.0-0.5); EOSINOPHILS % 3.1 % (0.0-7.0); HEMATOCRIT 26.7 % (37.0-47.0); HEMOGLOBIN 9.1 g/dl (12.0-16.0); LYMPHOCYTES # 1.8 10^3/ul (0.8-2.9); LYMPHOCYTES % 34.7 % (15.0-51.0); MEAN CORPUSCULAR HEMOGLOBIN 29.5 pg (29.0-33.0); MEAN CORPUSCULAR HGB CONC 34.1 g/dl (32.0-37.0); MEAN CORPUSCULAR VOLUME 86.5 fl (82.0-101.0); MEAN PLATELET VOLUME 7.9 fl (7.4-10.4); MONOCYTE # 0.7 10^3/ul (0.3-0.9); MONOCYTES % 12.8 % (0.0-11.0); NEUTROPHIL # 2.6 10^3/ul (1.6-7.5); NEUTROPHILS % 48.7 % (39.0-77.0); PLATELET COUNT 549 10^3/UL (140-440); RED BLOOD COUNT 3.09 10^6/ul (4.20-5.40); RED CELL DISTRIBUTION WIDTH 13.4 % (11.5-14.5); UNCORRECTED WBC 5.3 10^3/ul (4.8-10.8); WHITE BLOOD COUNT 5.3 10^3/ul (4.8-10.8)
[2016-05-24 06:15] LABS: CONDITION 1
[2016-05-24 07:36] VITALS: BP 108/64; RESP 16
[2016-05-24] MEDS: POLYETHYLENE GLYCOL 17 GM PACKET GTB SCH (08:54)
[2016-05-24] MEDS: ZINC OXIDE 20% 30 GM OINT TOP SCH (08:55)
[2016-05-24] MEDS: ACCUCHECK XX SCH (09:00)
--- NOTE | 2016-05-24 10:08 | PDOCDIS ---
Discharge Instructions CONDITION Patient Condition: Good HOME CARE INSTRUCTIONS: [facility]Your diet recommendation is: No uncooked fruits and vegetables ACTIVITY: Activity Restrictions: Avoid heavy lifting No Weight Bearing Bathing Restrictions: Shower FOLLOW UP/APPOINTMENTS Appointments F/U with Dr. Prakash one week OTHER ORDERS: Other Orders: Call if F/C/obstipation/bilious emesis/tachycardia/dehiscence of wound. Use binder daily. ROB NGUYEN M.D. May 24, 2016 10:08
[2016-05-24] MEDS ORDERED: Oxycodone/Acetamin (5/325) PO (10:09)
[2016-05-24] MEDS: OXYCODONE/ACETAMINOPHEN (5/325) TAB PO PRN (10:54)
[2016-05-24] MEDS ORDERED: HYDR-906 PO (11:41)
== END 2016-05-24 14:55 | disposition home health service (06) | DRG 330 ==
LOC: REC 11:18 → MS1 21:15
PROVIDERS: ADMIT Colon & Rectal Surgery; ATTEND Colon & Rectal Surgery
PROC: 0DN80ZZ Release Small Intestine, Open Approach (ICD-10-PCS; 2016-05-05)
PROC: 0DQL0ZZ Repair Transverse Colon, Open Approach (ICD-10-PCS; 2016-05-05)
PROC: 0DNE0ZZ Release Large Intestine, Open Approach (ICD-10-PCS; 2016-05-05)
PROC: 0DQM0ZZ Repair Descending Colon, Open Approach (ICD-10-PCS; 2016-05-05)
PROC: 0DQN0ZZ Repair Sigmoid Colon, Open Approach (ICD-10-PCS; 2016-05-05)
PROC: 0DQP0ZZ Repair Rectum, Open Approach (ICD-10-PCS; 2016-05-05)
PROC: 0DTJ0ZZ Resection of Appendix, Open Approach (ICD-10-PCS; 2016-05-05)
PROC: 0WUF0JZ Supplement Abdominal Wall with Synthetic Substitute, Open Approach (ICD-10-PCS; 2016-05-05)
PROC: 0DBN0ZZ Excision of Sigmoid Colon, Open Approach (ICD-10-PCS; principal; 2016-05-05 13:00)
PROC: 02H633Z Insertion of Infusion Device into Right Atrium, Percutaneous Approach (ICD-10-PCS; 2016-05-13)
DX: Z43.3 Encounter for attention to colostomy (principal); K91.3 Postprocedural intestinal obstruction; K43.2 Incisional hernia without obstruction or gangrene; K57.30 Diverticulosis of large intestine without perforation or abscess without bleeding; R11.2 Nausea with vomiting, unspecified
CPT/HCPCS: 36569; 71010; 71020; 74010; 74177; 76937; 80048; 80051; 80053; 80061; 81001; 81003; 82962; 83735; 84100; 84134; 84478; 85014; 85018; 85025; 85049; 85610; 88304; 88305; 88307; 93005; 93970; 97116; 97162; 97530; C9113; J0744; J1170; J1650; J1885; J2060; J2250; J2270; J2405; J2710; J2765; J3010; J3480; J7030; J7040; J7120; Q4166; Q9967

== ENCOUNTER → 2016-09-10 | Outpatient (CLI) | payer BC ==
[~2016-09-10] MED LIST changes: -ALPR0.5T6 PO; +CEPH500C PO; +CIPR500T4 PO; +DIATR MEGLU/DIATRIZOATE SODIUM 120 ML BTL ONE; +ESOM20CA PO; -GABA100C14 PO; +HYDR-902 PO; +METR500T PO
--- NOTE | 2016-09-10 15:00 | RADRPT ---
PROCEDURE: Air contrast barium enema CLINICAL INDICATION: Evaluate anastomosis, evaluate for fistula TECHNIQUE: Well prepared colon. Colon distended with barium and air via a bardex catheter with the tip of the catheter in the rectum. Routine fluoroscopy performed. Routine digital images of the col on including AP, both oblique, lateral rectum, angled sigmoid, both decubitus and post evacuation vi ews were acquired. Fluoroscopy time: 1.0 min COMPARISON: None FINDINGS: The nuisance wildlife specialist radiograph is unremarkable. There is free flow of barium in retrograde fashion from the rectum to the cecum without evidence of contrast extravasation to suggest an anastomotic leak or perforation. There is no evidence of a col ovaginal fistula. There is no evidence of constricting lesion, mass effect, or diverticulum formati on. No intraluminal lesion is identified on this study. IMPRESSION: Unremarkable barium enema without evidence of an anastomotic leak with or fistula. RPTAT: AA Physician Jessica Date Time Electronically viewed and signed by Physician Jessica on 09/10/2016 14:59 /
== END | disposition home or self-care (01) ==
LOC: RAD 10:30
PROVIDERS: ATTEND Colon & Rectal Surgery
DX: K63.89 Other specified diseases of intestine (principal)
CPT/HCPCS: 74270; Z7610

== ENCOUNTER 2017-01-29 09:28 | Emergency (ER) | payer BC ==
[~2017-01-29] VITALS: Ht 157.5 cm; Wt 72.5 kg
[~2017-01-29 09:28] MED LIST changes: -DIATR MEGLU/DIATRIZOATE SODIUM 120 ML BTL ONE
[2017-01-29 09:33] VITALS: Ht 157.5 cm; Wt 72.5 kg
[2017-01-29] MEDS ORDERED: morphine 4 MG/ML VIAL IV STA (10:45)
[2017-01-29] MEDS ORDERED: ONDANSETRON 4 MG INJ IV STA (10:45)
[2017-01-29 11:23] LABS: BASOPHILS % 0.3 % (0.0-2.0); EOSINOPHILS % 0.1 % (0.0-7.0); HEMATOCRIT 41.6 % (37.0-47.0); HEMOGLOBIN 13.5 g/dl (12.0-16.0); LYMPHOCYTES # 0.6 10^3/ul (0.8-2.9); LYMPHOCYTES % 8.8 % (15.0-51.0); MEAN CORPUSCULAR HEMOGLOBIN 27.7 pg (29.0-33.0); MEAN CORPUSCULAR HGB CONC 32.5 g/dl (32.0-37.0); MEAN CORPUSCULAR VOLUME 85.4 fl (82.0-101.0); MEAN PLATELET VOLUME 9.3 fl (7.4-10.4); MONOCYTE # 0.4 10^3/ul (0.3-0.9); MONOCYTES % 5.1 % (0.0-11.0); NEUTROPHIL # 5.9 10^3/ul (1.6-7.5); NEUTROPHILS % 85.4 % (39.0-77.0); PLATELET COUNT 294 10^3/UL (140-415); RED BLOOD COUNT 4.87 10^6/ul (4.20-5.40); RED CELL DISTRIBUTION WIDTH 13.1 % (11.5-14.5); WHITE BLOOD COUNT 6.9 10^3/ul (4.8-10.8)
[2017-01-29 11:28] LABS: ADD UMIC NO; UR ASCORBIC ACID NEGATIVE (NEGATIVE); UR BILIRUBIN (Dip) NEGATIVE (NEGATIVE); UR BLOOD (Dip) NEGATIVE (NEGATIVE); UR CLARITY CLEAR (CLEAR); UR COLOR YELLOW (YELLOW); UR GLUCOSE (Dip) NEGATIVE (NEGATIVE); UR KETONES (Dip) NEGATIVE (NEGATIVE); UR LEUKOCYTE ESTERASE (Dip) NEGATIVE Leu/ul (NEGATIVE); UR NITRITE (Dip) NEGATIVE (NEGATIVE); UR SPECIFIC GRAVITY (Dip) 1.018 (1.003-1.030); UR TOTAL PROTEIN (Dip) NEGATIVE (NEGATIVE); UR UROBILINOGEN (Dip) NEGATIVE (NEGATIVE)
[2017-01-29 12:47] LABS: ALBUMIN 4.2 g/dl (3.3-4.9); ALBUMIN/GLOBULIN RATIO 1.1; BILIRUBIN,INDIRECT 0.6 mg/dl (0-1.1); BILIRUBIN,TOTAL 0.6 mg/dl (0.2-1.3); CALCIUM 9.4 mg/dl (8.4-10.2); CREATININE 0.66 mg/dl (0.44-1.00); POTASSIUM 4.2 mmol/L (3.5-5.1)
--- NOTE | 2017-01-29 13:03 | RADRPT ---
PROCEDURE: CT Abdomen and Pelvis without contrast. CLINICAL INDICATION: Left flank pain x2 days TECHNIQUE: CT of the abdomen and pelvis was performed on a multi-detector scanner without IV contr ast. Coronal and sagittal images were reformatted from the axial data set. One or more of the foll owing dose reduction techniques were used: automated exposure control, adjustment of the mA and/or k V according to patient size, use of iterative reconstruction technique. CTDI = 14.52 mGy. DLP = 841 .32 mGy-cm. COMPARISON: CT, 06/13/2016 FINDINGS: The lung bases are clear. The heart size is normal, without pericardial effusion. Gallbladder is s urgically absent. Liver, biliary tree, pancreas, spleen, adrenal glands and kidneys are unremarkable . No urolithiasis or obstructive uropathy is identified. The stomach is grossly unremarkable. The aorta is of normal caliber. There is no retroperitoneal lymphadenopathy. The yanelis hepatis reg ion is clear. The patient is status post sigmoid colon resection, with unremarkable appearance of the surgical sta ple line. Scattered colonic diverticula are seen without diverticulitis. The patient is status post appendectomy. Mild retained fecal material may indicate constipation. Bowel containing midline anter ior abdominal ventral hernia is again noted, without obstruction or incarceration. There is no bowel obstruction, free intraperitoneal air or abscess. Urinary bladder is grossly unremarkable. Uterus i s surgically absent. No pelvic mass, free fluid or lymphadenopathy is identified. The surrounding osseous structures are remarkable for degenerative enthesopathy of the spine. No os teolytic or osteoblastic lesion is detected. IMPRESSION: 1. Bowel containing midline anterior abdominal ventral hernia is again noted, mildly increased in s ize when compared to the prior CT, without evidence of obstruction or incarceration. 2. The patient is status post cholecystectomy, sigmoid colon resection, appendectomy and hysterecto my. 3. Scattered colonic diverticula are seen without diverticulitis. 4. No urolithiasis or obstructive uropathy is identified. RPTAT: AAQQ .Juliocesar Machuca MD, MD Date Time Electronically viewed and signed by .Juliocesar Machuca MD, MD on 01/29/2017 13:02 .R/
[2017-01-29] MEDS ORDERED: DOCU-144 PO (13:08)
[2017-01-29] MEDS ORDERED: HYDR-902 PO (13:08)
[2017-01-29] MEDS ORDERED: ONDA4TAB14 PO (13:08)
--- NOTE | 2017-01-29 13:22 | ERD ---
ER Documentation Chief Complaint Chief Complaint Complains of left lower abdominal pain HPI Patient is a 62-year-old female with small bowel obstruction and diverticulitis who presents with abdominal pain. Her symptoms started yesterday. The patient has left lower quadrant pain which is severe per the daughter. The patient has nausea and vomiting. The pain is constant. The patient has no fevers. The patient has had no treatment as of yet. Upon review of old medical records this is the patient's seventh visit to the ER since 2016. ROS All systems reviewed and are negative except as per history of present illness. Medications Home Meds Active Scripts Docusate Sodium* (Colace*) 100 Mg Capsule, 100 MG PO TID, #30 CAP Prov:SAMAN ARNOLD MD 01/29/17 Ondansetron (Ondansetron Odt) 4 Mg Tab.rapdis, 4 MG PO Q6H Y for NAUSEA AND/OR VOMITING, #10 TAB Prov:SAMAN ARNOLD MD 01/29/17 Hydrocodone/Acetaminophen ([place] 10-325 Tablet) 1 Each Tablet, 1 TAB PO Q6H Y for PAIN, #7 TAB Prov:SAMAN ARNOLD MD 01/29/17 Hydrocodone/Acetaminophen ([place] 10-325 Tablet) 1 Each Tablet, 1 TAB PO Q6H Y for PAIN, #7 TAB Prov:GIULIA ESPINOZA MD 06/13/16 Ciprofloxacin Hcl* (Ciprofloxacin Hcl*) 500 Mg Tablet, 500 MG PO BID for 7 Days , TAB Prov:GIULIA ESPINOZA MD 06/13/16 Metronidazole* (Flagyl*) 500 Mg Tablet, 500 MG PO TID for 7 Days, TAB Prov:GIULIA ESPINOZA MD 06/13/16 Reported Medications Cephalexin* (Cephalexin*) 500 Mg Capsule, 500 MG PO Q8, #21 CAP STARTED ON 06-13-16 FOR 7 DAYS 06/13/16 Esomeprazole Mag Trihydrate (Nexium) 20 Mg Capsule.dr, 20 MG PO DAILY, #30 CAP 06/13/16 Allergies Allergies: Coded Allergies: No Known Drug Allergies (Verified Allergy, Unknown, 06/13/16) PMhx/Soc History of Surgery: Yes (ADRIANNE, COLOSTOMY,C SECTION X1, colostomy reversal ) Anesthesia Reaction: No Hx Neurological Disorder: No Hx Respiratory Disorders: No Hx Cardiac Disorders: No Hx Psychiatric Problems: No Hx Miscellaneous Medical Probl: Yes (abdominal hernia, diverticulitis) Hx Alcohol Use: No Hx Substance Use: No Hx Tobacco Use: No Smoking Status: Never smoker FmHx Family History: diabetes Physical Exam Vitals Vital Signs Date Time Temp Pulse Resp B/P Pulse Ox O2 Delivery O2 Flow Rate FiO2 01/29/17 09:33 99.8 99 20 111/70 99 Physical Exam Const: Moderate distress secondary to pain Head: Atraumatic Eyes: Normal Conjunctiva ENT: Normal External Ears, Nose and Mouth. Neck: Full range of motion..~ No meningismus. Resp: Clear to auscultation bilaterally Cardio: Regular rate and rhythm, no murmurs Abd: Soft, left lower quadrant tenderness to palpation without rebound or guarding Skin: No petechiae or rashes Back: No midline or flank tenderness Ext: No cyanosis, or edema Neur: Awake and alert Psych: Normal Mood and Affect Result Diagram: 01/29/17 1100 01/29/17 1100 Results 24 hrs Laboratory Tests Test 01/29/17 11:00 White Blood Count 6.910^3/ul Red Blood Count 4.8710^6/ul Hemoglobin 13.5g/dl Hematocrit 41.6% Mean Corpuscular Volume 85.4fl Mean Corpuscular Hemoglobin 27.7pg Mean Corpuscular Hemoglobin Concent 32.5g/dl Red Cell Distribution Width 13.1% Platelet Count 72459^3/UL Mean Platelet Volume 9.3fl Neutrophils % 85.4% Lymphocytes % 8.8% Monocytes % 5.1% Eosinophils % 0.1% Basophils % 0.3% Nucleated Red Blood Cells % 0.0/100WBC Neutrophils # 5.910^3/ul Lymphocytes # 0.610^3/ul Monocytes # 0.410^3/ul Eosinophils # 0.010^3/ul Basophils # 0.010^3/ul Nucleated Red Blood Cells # 0.010^3/ul Urine Color YELLOW Urine Clarity CLEAR Urine pH 8.0 Urine Specific [place] 1.018 Urine Ketones NEGATIVEmg/dL Urine Nitrite NEGATIVEmg/dL Urine Bilirubin NEGATIVEmg/dL Urine Urobilinogen NEGATIVEmg/dL Urine Leukocyte Esterase NEGATIVELeu/ul Urine Hemoglobin NEGATIVEmg/dL Urine Glucose NEGATIVEmg/dL Urine Total Protein NEGATIVEmg/dl Sodium Level 140mmol/L Potassium Level 4.2mmol/L Chloride Level 104mmol/L Carbon Dioxide Level 29mmol/L Anion Gap 11 Blood Urea Nitrogen 16mg/dl Creatinine 0.66mg/dl Glucose Level 100mg/dl Calcium Level 9.4mg/dl Total Bilirubin 0.6mg/dl Direct Bilirubin 0.00mg/dl Indirect Bilirubin 0.6mg/dl Aspartate Amino Transf (AST/SGOT) 25IU/L Alanine Aminotransferase (ALT/SGPT) 34IU/L Alkaline Phosphatase 89IU/L Total Protein 8.0g/dl Albumin 4.2g/dl Globulin 3.80g/dl Albumin/Globulin Ratio 1.10 Lipase 57U/L Current Medications Medications (Trade) Dose Ordered Sig/Vincent Route PRN Reason Start Time Stop Time Status Last Admin Dose Admin Morphine Sulfate (morphine) 4 mg ONCE STAT IV 01/29/17 10:45 01/29/17 10:46 DC 01/29/17 11:12 Ondansetron HCl (Zofran Inj) 4 mg ONCE STAT IV 01/29/17 10:45 01/29/17 10:46 DC 01/29/17 11:12 Procedures/MDM PROCEDURE: CT Abdomen and Pelvis without contrast. CLINICAL INDICATION: Left flank pain x2 days TECHNIQUE: CT of the abdomen and pelvis was performed on a multi-detector scanner without IV contrast. Coronal and sagittal images were reformatted from the axial data set. One or more of the following dose reduction techniques were used: automated exposure control, adjustment of the mA and/or kV according to patient size, use of iterative reconstruction technique. CTDI = 14.52 mGy. DLP = 841.32 mGy-cm. COMPARISON: CT, 06/13/2016 FINDINGS: The lung bases are clear. The heart size is normal, without pericardial effusion. Gallbladder is surgically absent. Liver, biliary tree, pancreas, spleen, adrenal glands and kidneys are unremarkable. No urolithiasis or obstructive uropathy is identified. The stomach is grossly unremarkable. The aorta is of normal caliber. There is no retroperitoneal lymphadenopathy. The yanelis hepatis region is clear. The patient is status post sigmoid colon resection, with unremarkable appearance of the surgical staple line. Scattered colonic diverticula are seen without diverticulitis. The patient is status post appendectomy. Mild retained fecal material may indicate constipation. Bowel containing midline anterior abdominal ventral hernia is again noted, without obstruction or incarceration. There is no bowel obstruction, free intraperitoneal air or abscess. Urinary bladder is grossly unremarkable. Uterus is surgically absent. No pelvic mass, free fluid or lymphadenopathy is identified. The surrounding osseous structures are remarkable for degenerative enthesopathy of the spine. No osteolytic or osteoblastic lesion is detected. IMPRESSION: 1. Bowel containing midline anterior abdominal ventral hernia is again noted, mildly increased in size when compared to the prior CT, without evidence of obstruction or incarceration. 2. The patient is status post cholecystectomy, sigmoid colon resection, appendectomy and hysterectomy. 3. Scattered colonic diverticula are seen without diverticulitis. 4. No urolithiasis or obstructive uropathy is identified. RPTAT: AAQQ .Juliocesar Machuca MD, MD Date Time Electronically viewed and signed by .Juliocesar Machuca MD, MD on 01/29/2017 13: 02 Patient is a 62-year-old male with previous diverticulitis and small bowel obstruction who presents with abdominal pain. CT scan shows no sign of diverticulitis or bowel obstruction at this time. The patient felt better after morphine and Zofran. The patient will be discharged home. Laboratory studies are normal. The patient will be given a short course of [place], Zofran, and Colace. I doubt appendicitis, cholecystitis, pancreatitis, diverticulitis, or bowel obstruction. The patient should follow-up closely with her primary doctor within 24 hours for evaluation. Departure Diagnosis: Primary Impression: Abdominal pain Abdominal location: left lower quadrant Qualified Code: R10.32 - Left lower quadrant pain Condition: Fair Patient Instructions: Abdominal Pain Referrals: CHAKA BURNHAM (PCP) Additional Instructions: Llame al doctor MAANA y terrell guy BRANDIE PARA DENTRO DE 1-2 FARFAN.Dgale a la secretaria que nosotros le instruimos hacer esta brandie.Avise o llame si anthony condicin se empeora antes de la brandie. Regresa aqui si peor o no mejor. SAMAN ARNOLD MD Jan 29, 2017 13:22
[2017-01-29 13:34] VITALS: BP 121/58; PULSE 79; RESP 18
== END 2017-01-29 13:36 | disposition home or self-care (01) ==
LOC: E/R 09:28
DX: R10.32 Left lower quadrant pain (principal)
CPT/HCPCS: 36415; 74176; 80053; 81003; 83690; 85025; 96374; 96375; J2270; J2405; Z7502

== ENCOUNTER 2017-04-03 19:37 | Emergency (ER) | payer BC ==
[~2017-04-03] VITALS: Ht 160 cm; Wt 73.3 kg
[~2017-04-03 19:37] MED LIST changes: +DOCU-144 PO; +ONDA4TAB14 PO
[2017-04-03 19:39] VITALS: Ht 160 cm; Wt 73.3 kg
[2017-04-03] MEDS ORDERED: ONDANSETRON 4 MG INJ IV STA (20:15)
[2017-04-03] MEDS ORDERED: SOD CHLORIDE 0.9% 1,000 ML IV STA (20:15)
[2017-04-03] MEDS ORDERED: morphine 4 MG/ML VIAL IV STA (20:15)
[2017-04-03 20:45] LABS: ADD UMIC YES; UR ASCORBIC ACID NEGATIVE (NEGATIVE); UR BILIRUBIN (Dip) NEGATIVE (NEGATIVE); UR BLOOD (Dip) NEGATIVE (NEGATIVE); UR CLARITY CLEAR (CLEAR); UR COLOR YELLOW (YELLOW); UR GLUCOSE (Dip) NEGATIVE (NEGATIVE); UR KETONES (Dip) NEGATIVE (NEGATIVE); UR LEUKOCYTE ESTERASE (Dip) TRACE Leu/ul (NEGATIVE); UR NITRITE (Dip) NEGATIVE (NEGATIVE); UR RBC 1 /HPF (0-5); UR SPECIFIC GRAVITY (Dip) 1.016 (1.003-1.030); UR TOTAL PROTEIN (Dip) NEGATIVE (NEGATIVE); UR UROBILINOGEN (Dip) NEGATIVE (NEGATIVE)
[2017-04-03 21:15] LABS: BASOPHILS % 0.8 % (0.0-2.0); EOSINOPHILS # 0.1 10^3/ul (0.0-0.5); HEMOGLOBIN 12.5 g/dl (12.0-16.0); LYMPHOCYTES # 1.8 10^3/ul (0.8-2.9); LYMPHOCYTES % 37.6 % (15.0-51.0); MEAN CORPUSCULAR HEMOGLOBIN 29.1 pg (29.0-33.0); MEAN CORPUSCULAR HGB CONC 33.8 g/dl (32.0-37.0); MEAN CORPUSCULAR VOLUME 86.2 fl (82.0-101.0); MEAN PLATELET VOLUME 9.5 fl (7.4-10.4); MONOCYTE # 0.6 10^3/ul (0.3-0.9); MONOCYTES % 13.1 % (0.0-11.0); NEUTROPHIL # 2.3 10^3/ul (1.6-7.5); NEUTROPHILS % 47.3 % (39.0-77.0); PLATELET COUNT 330 10^3/UL (140-415); RED BLOOD COUNT 4.29 10^6/ul (4.20-5.40); RED CELL DISTRIBUTION WIDTH 12.5 % (11.5-14.5); WHITE BLOOD COUNT 4.8 10^3/ul (4.8-10.8)
[2017-04-03 21:30] LABS: INR 0.91; PROTIME 12.3 Sec (11.9-14.9)
[2017-04-03 21:31] LABS: PARTIAL THROMBOPLASTIN TIME 29.2 Sec (25.0-35.0)
[2017-04-03 21:33] LABS: ALANINE AMINOTRANSFERASE 42 IU/L (13-69); ALBUMIN/GLOBULIN RATIO 1.25; ALKALINE PHOSPHATASE 100 IU/L (42-121); AMYLASE 82 U/L (11-123); ANION GAP 16 (8-16); ASPARTATE AMINO TRANSFERASE 26 IU/L (15-46); BILIRUBIN,INDIRECT 0.2 mg/dl (0-1.1); BILIRUBIN,TOTAL 0.2 mg/dl (0.2-1.3); BLOOD UREA NITROGEN 14 mg/dl (7-20); CALCIUM 9.1 mg/dl (8.4-10.2); CARBON DIOXIDE 25 mmol/L (21-31); CHLORIDE 106 mmol/L (97-110); GLUCOSE 131 mg/dl (70-220); POTASSIUM 3.8 mmol/L (3.5-5.1); SODIUM 143 mmol/L (135-144); TOTAL PROTEIN 7.2 g/dl (6.1-8.1)
--- NOTE | 2017-04-03 21:44 | ERD ---
ER Documentation Chief Complaint Chief Complaint Abd pain, nausea x 1 week HPI This is a 62-year-old female with a significant past surgical history with cholecystectomy section hysterectomy and 5 expiratory laparotomies due to complications from diverticulitis. The patient's last surgery was several years prior to arrival. She does not have a colostomy bag. She presents to the emergency department today complaining of intermittent abdominal pain for 1 week. She states the pain is a cramping like sensation with no radiation to the back. The cramping is diffuse. She has had no diarrhea or constipation. She has had nausea but denies any hemoptysis hematemesis or melanotic stools. She did not take any analgesic medication. She has had no fevers or shaking or chills. She denies any chest pain or pressure that radiates to the neck arm back or jaw. She denies any recent travel or hospitalizations. No shortness of breath at rest or exertion ROS All systems reviewed and are negative except as per history of present illness. Medications Home Meds Active Scripts Docusate Sodium* (Colace*) 100 Mg Capsule, 100 MG PO TID, #30 CAP Prov:SAMAN ARNOLD MD 01/29/17 Ondansetron (Ondansetron Odt) 4 Mg Tab.rapdis, 4 MG PO Q6H Y for NAUSEA AND/OR VOMITING, #10 TAB Prov:SAMAN ARNOLD MD 01/29/17 Hydrocodone/Acetaminophen (Ovid 10-325 Tablet) 1 Each Tablet, 1 TAB PO Q6H Y for PAIN, #7 TAB Prov:SAMAN ANROLD MD 01/29/17 Hydrocodone/Acetaminophen (Ovid 10-325 Tablet) 1 Each Tablet, 1 TAB PO Q6H Y for PAIN, #7 TAB Prov:GIULIA ESPINOZA MD 06/13/16 Ciprofloxacin Hcl* (Ciprofloxacin Hcl*) 500 Mg Tablet, 500 MG PO BID for 7 Days , TAB Prov:GIULIA ESPINOZA MD 06/13/16 Metronidazole* (Flagyl*) 500 Mg Tablet, 500 MG PO TID for 7 Days, TAB Prov:GIULIA ESPINOZA MD 06/13/16 Reported Medications Cephalexin* (Cephalexin*) 500 Mg Capsule, 500 MG PO Q8, #21 CAP STARTED ON 06-13-16 FOR 7 DAYS 3/4/17 Esomeprazole Mag Trihydrate (Nexium) 20 Mg Capsule.dr, 20 MG PO DAILY, #30 CAP 06/13/16 Allergies Allergies: Coded Allergies: No Known Drug Allergies (Verified Allergy, Unknown, 06/13/16) PMhx/Soc History of Surgery: Yes (Colorectl Anastomosis,C-Sectioon,Cholecystectomy) Anesthesia Reaction: No Hx Neurological Disorder: No Hx Respiratory Disorders: No Hx Cardiac Disorders: No Hx Psychiatric Problems: No Hx Miscellaneous Medical Probl: Yes (SBO,Gallstones) Hx Alcohol Use: No Hx Substance Use: No Hx Tobacco Use: No Smoking Status: Never smoker Physical Exam Vitals Vital Signs Date Time Temp Pulse Resp B/P Pulse Ox O2 Delivery O2 Flow Rate FiO2 04/03/17 22:00 98.0 04/03/17 21:00 75 14 107/41 99 Room Air 04/03/17 19:39 97.8 78 20 148/78 99 Physical Exam Constitutional:Well-developed. Well-nourished. HEENT:Normocephalic. Atraumatic.Pupils were equal round reactive to light. Moist mucous membranes.No tonsillar exudates. Neck: No nuchal rigidity. No lymphadenopathy. No posterior cervical spine tenderness or step-offs. Respiratory: Not using accessory muscles of respiration.Lungs were clear to auscultation bilaterally. No rhonchi. No rales. No wheezing. Cardiovascular: Regular rate regular rhythm.No murmurs. No rubs were appreciated.S1, S2 normal. Distal pulses are palpable 2+ bilaterally. GI: Abdomen was soft with postsurgical scars below the umbilicus and extending to the majority of the lower abdomen. Tenderness in left lower quadrant with no rebound or guarding. No pulsatile abdominal masses or bruits. No palpable hernias. Muscle skeletal: Full range of motion of both the upper and lower extremities bilaterally.Normal muscle tone.No assymetrical calf tenderness or swelling. Skin: No petechia, no purpura. No lesions on the palms or the soles of the feet. No maculopapular rash. NEURO: Patient was alert, awake, orientated x3.No facial droop. Gait observed and normal with no ataxia.Speech had regular rate and rhythm. No focal neurological deficits. Result Diagram: 04/03/17202904/03/172029 Results 24 hrs Laboratory Tests Test 12/23/17 20:30 White Blood Count 4.810^3/ul Red Blood Count 4.2910^6/ul Hemoglobin 12.5g/dl Hematocrit 37.0% Mean Corpuscular Volume 86.2fl Mean Corpuscular Hemoglobin 29.1pg Mean Corpuscular Hemoglobin Concent 33.8g/dl Red Cell Distribution Width 12.5% Platelet Count 41115^3/UL Mean Platelet Volume 9.5fl Neutrophils % 47.3% Lymphocytes % 37.6% Monocytes % 13.1% Eosinophils % 1.0% Basophils % 0.8% Nucleated Red Blood Cells % 0.0/100WBC Neutrophils # 2.310^3/ul Lymphocytes # 1.810^3/ul Monocytes # 0.610^3/ul Eosinophils # 0.110^3/ul Basophils # 0.010^3/ul Nucleated Red Blood Cells # 0.010^3/ul Prothrombin Time 12.3Sec Prothrombin Time Ratio 1.0 INR International Normalized Ratio 0.91 Activated Partial Thromboplast Time 29.2Sec Urine Color YELLOW Urine Clarity CLEAR Urine pH 8.0 Urine Specific [place] 1.016 Urine Ketones NEGATIVEmg/dL Urine Nitrite NEGATIVEmg/dL Urine Bilirubin NEGATIVEmg/dL Urine Urobilinogen NEGATIVEmg/dL Urine Leukocyte Esterase TRACELeu/ul Urine Microscopic RBC 1/HPF Urine Microscopic WBC 5/HPF Urine Hemoglobin NEGATIVEmg/dL Urine Glucose NEGATIVEmg/dL Urine Total Protein NEGATIVEmg/dl Sodium Level 143mmol/L Potassium Level 3.8mmol/L Chloride Level 106mmol/L Carbon Dioxide Level 25mmol/L Anion Gap 16 Blood Urea Nitrogen 14mg/dl Creatinine 0.60mg/dl Glucose Level 131mg/dl Calcium Level 9.1mg/dl Total Bilirubin 0.2mg/dl Direct Bilirubin 0.00mg/dl Indirect Bilirubin 0.2mg/dl Aspartate Amino Transf (AST/SGOT) 26IU/L Alanine Aminotransferase (ALT/SGPT) 42IU/L Alkaline Phosphatase 100IU/L Troponin I < 0.012ng/ml Total Protein 7.2g/dl Albumin 4.0g/dl Globulin 3.20g/dl Albumin/Globulin Ratio 1.25 Amylase Level 82U/L Lipase 114U/L Current Medications Medications (Trade) Dose Ordered Sig/Vincent Route PRN Reason Start Time Stop Time Status Last Admin Dose Admin Sodium Chloride (NS) 1,000 ml @ 1,000 mls/hr Q1H STAT IV 04/03/17 20:15 04/03/17 21:14 DC 04/03/17 20:36 Morphine Sulfate (morphine) 4 mg ONCE STAT IV 04/03/17 20:15 04/03/17 20:17 DC 04/03/17 20:36 Ondansetron HCl (Zofran Inj) 4 mg ONCE STAT IV 04/03/17 20:15 04/03/17 20:17 DC 04/03/17 20:36 IV Flush 10 ml 10 ml STK-MED ONCE .ROUTE 04/03/17 21:53 04/03/17 21:54 DC 04/03/17 22:02 Sodium Chloride (NS) 100 ml @ ud STK-MED ONCE .ROUTE 04/03/17 21:53 04/03/17 21:54 DC 04/03/17 22:02 Iohexol (Omnipaque 300mg/ ml) 150 ml STK-MED ONCE .ROUTE 04/03/17 21:53 04/03/17 21:54 DC Procedures/MDM This patient presented to the emergency department with abdominal pain and was seen and evaluated by myself. My differential diagnosis included but was not limited to abdominal aortic aneurysm, appendicitis, pancreatitis, perforated peptic ulcer, perforated viscus, Boerhaaves syndrome or visceral pain such as diverticulitis, DKA, esophagitis, hepatitis or bowel obstruction. The patient was placed on a monitoring engineer, continuous pulse oximetry, and IV access was established by nursing staff. Patient received intravenous morphine and Zofran. I obtained a 12-lead EKG tracing to rule out for atypical myocardial infarction. 12 Lead EKG tracing ordered and reviewed by myself showed: Normal sinus rhythm of 68 bpm and no arrhythmia. UT interval normal. QRS duration normal. No ST segment elevation No ST segment depression. No changes consistent with acute ischemia. I obtained a CT scan of the abdomen due to her significant surgical history is no evidence of obstruction. The CT scan read by the radiologist myself indicated the followin. No inflammation, mass, or lymphadenopathy. 2. No significant change in a large midline ventral abdominal wall hernia containing nonobstructed loops of small bowel and portion of the transverse colon. 3. Status post cholecystectomy, partial sigmoid colon resection, appendectomy, and hysterectomy. 4. Minimal colonic diverticulosis. I did feel the patient's symptoms could be result of diverticulosis without diverticulitis. Her pain is significantly improved after she received intravenous morphine and also received a liter bolus of 0.9 normal saline. She will be discharged home with Ovid to take if needed for analgesia control. The patient was discharged home in fair condition. They were instructed to return to the emergency department at any time if there was any worsening of their condition. The patient stated they would follow up with their PCP in the next 24-48 hours to initiate a suitable medication regimen under the care of their PCP as well as to allow their PCP to monitor any drug reactions. The patient was discharged home with prescriptions after they gave informed consent to the new medication. They were also fully informed by myself on the adverse effects and adverse drug interactions in order to provide adequate safeguards to prevent possible adverse reactions to medications. Departure Diagnosis: Primary Impression: Diverticulosis Diverticulosis site: unspecified location Diverticulosis bleeding: diverticulosis without bleeding Qualified Code: K57.90 - Diverticulosis of intestine without bleeding, unspecified intestinal tract location Condition: Fair EMBER KEYS Apr 03, 2017 21:44
[2017-04-03 21:47] LABS: TROPONIN-I < 0.012 ng/ml (0.00-0.12)
[2017-04-03] MEDS ORDERED: SOD CHLORIDE 0.9% 100 ML ONE (21:53)
[2017-04-03] MEDS ORDERED: IOHEXOL 300MG/ML 150 ML BTL ONE (21:53)
--- NOTE | 2017-04-03 22:43 | RADRPT ---
PROCEDURE: CT Abdomen and Pelvis with contrast. CLINICAL INDICATION: Abdominal pain. TECHNIQUE: A CT scan of the abdomen and pelvis was performed with intravenous contrast. The patie nt was scanned following the uncomplicated intravenous administration of 100 cc of Omnipaque-300. C oronal and sagittal reformatted images were obtained from the axial source images. DICOM images are available. Images were reviewed on a high-resolution PACS workstation. CTDIvol: 13.44 mGy. DLP: 734. 11 mGy-cm. One or more of the following dose reduction techniques were used: - Automated exposure control. - Adjustment of the mA and/or kV according to patient size. - Use of iterative reconstruction technique. COMPARISON: 01/29/2017 FINDINGS: There are mild atelectatic changes in both lungs. The liver is unremarkable. The patient is status post cholecystectomy. The common bile duct is not dilated. The spleen is not enlarged. No pancreatic lesion is identified and there is no pancreatic d uctal dilatation. The adrenal glands are unremarkable. The kidneys are normal in size. There is no perinephric fat stranding. No hydronephrosis is seen. A large midline ventral abdominal wall hernia containing nonobstructed loops of small bowel and port ion of the transverse colon, not significantly changed. The patient is status post partial sigmoid c olon resection with colocolic anastomosis. The small and large bowel are normal in caliber. There i s no bowel wall thickening. Minimal colonic diverticulosis is noted. The patient is status post appe ndectomy. The urinary bladder is unremarkable. The patient is status post hysterectomy. No adnexal mass is se en. No lymphadenopathy is identified. There is no ascites. No pneumoperitoneum is seen. There are no art erial calcifications. No suspicious osseous lesion is idenitified. IMPRESSION: 1. No inflammation, mass, or lymphadenopathy. 2. No significant change in a large midline ventral abdominal wall hernia containing nonobstructed loops of small bowel and portion of the transverse colon. 3. Status post cholecystectomy, partial sigmoid colon resection, appendectomy, and hysterectomy. 4. Minimal colonic diverticulosis. RPTAT: HTAR .Jered Ramos MD, MD Date Time Electronically viewed and signed by .Jered Ramos MD, on 04/03/2017 22:43 .R/
[2017-04-03] MEDS ORDERED: HYDR-906 PO (22:49)
[2017-04-03 23:25] VITALS: BP 110/62; PULSE 76; RESP 16; TEMP 98.6
== END 2017-04-03 23:30 | disposition home or self-care (01) ==
LOC: E/R 19:37
DX: K57.90 Diverticulosis of intestine, part unspecified, without perforation or abscess without bleeding (principal); R00.2 Palpitations
CPT/HCPCS: 36415; 74177; 80053; 81001; 82150; 83690; 84484; 85025; 85610; 85730; 87086; 96374; 96375; J2270; J2405; J7030; Q9967; Z7502; Z7610; 93005

== ENCOUNTER 2017-08-24 14:30 | Emergency (ER) | END 2017-08-24 21:02 | disposition home or self-care (01) ==

== ENCOUNTER 2017-09-09 11:56 | Inpatient (IN) | END 2017-09-13 17:15 | disposition home or self-care (01) | DRG 392 ==

== ENCOUNTER 2017-12-20 05:43 | Day surgery (SDC) | END 2017-12-20 11:56 | disposition home or self-care (01) ==

== ENCOUNTER 2018-02-14 11:56 | Emergency (ER) | END 2018-02-14 16:56 | disposition home or self-care (01) ==

== ENCOUNTER 2018-08-31 05:30 | Inpatient (IN) | payer BC ==
[~2018-08-31] VITALS: Ht 165.1 cm; Wt 80.0 kg
[~2018-08-31 05:30] MED LIST changes: +ALPR0.5T6 PO; -CEPH500C PO; -CIPR500T4 PO; -DOCU-144 PO; -ESOM20CA PO; +FIBER; +GABA100C14 PO; -HYDR-902 PO; -METR500T PO; -ONDA4TAB14 PO; +PANT40TA4 PO
[2018-08-31 07:35] VITALS: BP 133/76; PULSE 72; RESP 18
[2018-08-31 08:28] VITALS: Ht 165.1 cm; Wt 80.0 kg
[2018-08-31] MEDS ORDERED: NACL 0.9% 3 ML SYG IV SCH (09:00)
[2018-08-31] MEDS ORDERED: morphine 2 MG INJ IV PRN (09:00)
[2018-08-31] MEDS ORDERED: ONDANSETRON 4 MG INJ IV PRN (09:00)
[2018-08-31] MEDS ORDERED: IOHEXOL 300MG/ML 150 ML BTL ONE (10:32)
--- NOTE | 2018-08-31 13:21 | HP ---
Date/Time of Note Date/Time of Note DATE: 08/31/18 TIME: 13:18 Assessment/Plan VTE Prophylaxis SCD applied (from Nsg): Yes Pharmacological prophylaxis: NA/contraindicated Pharm contraindication: low risk/ambulating Lines/Catheters IV Catheter Type (from Nrsg): Saline Lock Urinary Cath still in place: No Assessment/Plan Hospital Course SUBJECTIVE: Lying in bed, complaining of 10 out of 10 on generalized abdominal area OBJECTIVE: Vital signs-see below PHYSICAL EXAM: Constitutional: Adequately built,not in acute distress. HEENT: Head atraumatic and normocephalic. Eyes: Extraocular muscles intact. Anicteric sclerae. Pupils equal bilaterally, reactive to light. NECK: Supple without lymph node. CHEST: Clear and good breath sounds equally. No wheezing. No rhonchi. HEART: S1, S2. Regular rate and rhythm. ABDOMEN: Diffuse tenderness to all 4 quadrants. No rebound tenderness , bowel sounds hypoactive EXTREMITIES: No cyanosis, clubbing or edema. NEUROLOGIC: Alert and oriented x3. No focal deficit. No sensory deficit. PSYCHOSOCIAL: No signs of depression. INTEGUMENTARY: No open wounds. ASSESSMENT AND PLAN:63 yo F w/ history of diverticulitis, multiple abdominal surgeries including colostomy,inoperable large ventral hernia,frequent bowel obstructions, transferred from outside hospital with sudden onset of diffuse abdominal pain found to have incarcerated ventral hernia with possible small bowel obstruction. Abdominal pain /vomiting -Outside hospital CT:w/Incarcerated ventral hernia with possible small bowel obstruction. No evidence of strangulation. -Will obtain a small bowel x-ray for follow-up -Surgical consult with -N.p.o., NG tube decompression, IV pain meds History of multiple abdominal surgeries with latest explore lap April 2016 W/ Large inoperable ventral hernia -monitor DVT prophylaxis: SCDs PUD prophylaxis: IV Protonix Rest of the management depend on hospital course. Approximately 60 m spent on this history and physical. Patient was seen in collaboration with Dr. Schafer. HPI/ROS Admit Date/Time Admit Date/Time August 31, 2018 at 07:39 Hx of Present Illness This is a 63-year-old female with a history of multiple abdominal surgeries for diverticulitis including colostomy with latest explore lap April 2016 for residual diverticular disease, large ventral hernia which is inoperable, recurrent bowel obstructions, dyslipidemia, initially presented to [facility] with 1 day duration of generalized abdominal pain associated with multiple episodes of nonbilious/nonbloody vomiting. Patient denied fever, chills, bloody diarrhea, constipation, hematemesis, hematochezia, chest pain, palpitation, shortness of breath, headache, dizziness or other constitutional symptoms. Outside hospital work-up showed large ventral hernia containing several distended small bowel loops with air-fluid levels with small bowel obstruction suspected. She also had moderate to large amount of stool within the colon. There was no evidence of free air or fluid. There was no evidence of obstructive uropathy. Since initial labs unremarkable except for sugar 140. She did not have any leukocytosis or fevers. Patient was transferred to [facility] due to insurance capitation. ROS 12 point review of system was assessed and is negative other than what is mentioned in the HPI PMH/Family/Social Past Medical History See HPI Medications Current Medications IV Flush (NS 3 ml) 3 ml PER PROTOCOL IV ; Start 08/31/18 at 09:00 Ondansetron HCl (Zofran Inj) 4 mg Q6H PRN IV NAUSEA/VOMITING; Start 08/31/18 at 09:00 Morphine Sulfate (morphine) 2 mg Q4H PRN IV .SEVERE PAIN 7-10; Start 08/31/18 at 09:00 Coded Allergies: No Known Drug Allergies (Verified Allergy, Unknown, 12/20/17) Past Surgical History See HPI Family History Significant Family History: diabetes, hypertension Social History Denied history of alcohol, smoking or illicit drug use Smoking Status: Never smoker Exam/Review of Systems Vital Signs Vitals Vital Signs Date Temp Pulse Resp B/P (MAP) Pulse Ox O2 O2 Flow FiO2 Time Delivery Rate 08/31/18 97.7 72 18 133/76 96 Room Air 07:35 (95) INOCENCIO ROJO NP August 31, 2018 13:21
[2018-08-31] MEDS: SOD CHLORIDE 0.9% 1,000 ML IV SCH (13:28)
[2018-08-31 14:20] VITALS: BP 137/84; PULSE 77; RESP 16
[2018-08-31] MEDS ORDERED: NA PHOSPHATE/BIPHOS 133 ML ENEMA PR ONE ×2 (16:00→16:03)
[2018-08-31 20:00] VITALS: BP 127/70; PULSE 74; RESP 18
[2018-09-01 02:00] VITALS: BP 137/74; PULSE 77; RESP 18
[2018-09-01] MEDS: SOD CHLORIDE 0.9% 1,000 ML IV SCH (02:43)
[2018-09-01 08:00] VITALS: BP 127/61; PULSE 86; RESP 18
--- NOTE | 2018-09-01 13:03 | PN ---
Date/Time of Note Date/Time of Note DATE: 09/01/18 TIME: 13:01 Assessment/Plan VTE Prophylaxis Risk score (from Ns)>0 risk: 3 SCD applied (from Ns): Yes Pharmacological prophylaxis: NA/contraindicated Pharm contraindication: low risk/ambulating Lines/Catheters IV [facility]from [facility] Saline Lock Urinary Cath still in place: No Assessment/Plan Hospital Course SUBJECTIVE: Patient with improved abdominal pain. NG tube drain 100 mL overnight. OBJECTIVE: Vital signs-see below PHYSICAL EXAM: Constitutional: Adequately built,not in acute distress. HEENT: Head atraumatic and normocephalic. Eyes: Extraocular muscles intact. Anicteric sclerae. Pupils equal bilaterally, reactive to light. NECK: Supple without lymph node. CHEST: Clear and good breath sounds equally. No wheezing. No rhonchi. HEART: S1, S2. Regular rate and rhythm. ABDOMEN: Diffuse tenderness to all 4 quadrants. No rebound tenderness , bowel sounds hypoactive EXTREMITIES: No cyanosis, clubbing or edema. NEUROLOGIC: Alert and oriented x3. No focal deficit. No sensory deficit. PSYCHOSOCIAL: No signs of depression. INTEGUMENTARY: No open wounds. ASSESSMENT AND PLAN:63 yo F w/ history of diverticulitis, multiple abdominal surgeries including colostomy,inoperable large ventral hernia,frequent bowel obstructions, transferred from outside hospital with sudden onset of diffuse abdominal pain found to have incarcerated ventral hernia with possible small bowel obstruction. Abdominal pain /vomiting -Outside hospital CT:w/Incarcerated ventral hernia with possible small bowel obstruction. No evidence of strangulation. -Small bowel x-ray with no evidence of small bowel obstruction. -That is post enema yesterday with adequate bowel movement/ with improved abdominal discomfort -After discussion with , we will clamp NG tube today and check residual after 3 hours. If more than 75 mL, NG tube to go back to low intermittent suction. If less than 75 mL and patient with not much abdominal pain, trial clear liquid. -PRN pain meds Obstipation -s/p enema w/good outcome History of multiple abdominal surgeries with latest explore lap April 2016 W/ Large inoperable ventral hernia -monitor DVT prophylaxis: SCDs PUD prophylaxis: IV Protonix Position: Please note that I have been communicating with patient surgeon Dr. Garza over the phone and patient with improvement in symptoms. As such, we have plan to clamp NG tube today and we will see whether we can start patient on diet later this evening. Patient was seen in collaboration with Dr. Schafer. Result Diagram: 09/01/1828 09/01/1828 Results 24hrs Laboratory Tests Test 08/31/18 13:02 09/01/18 05:28 White Blood Count 7.2 4.9 # Red Blood Count 4.99 4.53 Hemoglobin 13.9 12.8 Hematocrit 42.7 38.9 Mean Corpuscular Volume 85.6 85.9 Mean Corpuscular Hemoglobin 27.9 L 28.3 L Mean Corpuscular Hemoglobin Concent 32.6 32.9 Red Cell Distribution Width 12.7 12.8 Platelet Count 370 334 Mean Platelet Volume 9.3 9.6 Immature Granulocytes % 0.300 0.200 Neutrophils % 63.4 55.8 Lymphocytes % 25.6 32.5 Monocytes % 9.6 9.7 Eosinophils % 0.3 0.8 Basophils % 0.8 1.0 Nucleated Red Blood Cells % 0.0 0.0 Immature Granulocytes # 0.020 0.010 Neutrophils # 4.6 2.8 Lymphocytes # 1.9 1.6 Monocytes # 0.7 0.5 Eosinophils # 0.0 0.0 Basophils # 0.1 0.1 Nucleated Red Blood Cells # 0.0 0.0 Sodium Level 142 143 Potassium Level 4.4 3.9 Chloride Level 104 108 Carbon Dioxide Level 29 28 Anion Gap 9 7 Blood Urea Nitrogen 14 17 Creatinine 0.65 0.66 Est Glomerular Filtrat Rate mL/min > 60 > 60 Glucose Level 125 111 Hemoglobin A1c 6.0 H Calcium Level 10.1 9.1 Total Bilirubin 0.6 Direct Bilirubin 0.00 Indirect Bilirubin 0.6 Aspartate Amino Transf (AST/SGOT) 35 Alanine Aminotransferase (ALT/SGPT) 41 Alkaline Phosphatase 115 Total Protein 8.5 H Albumin 4.7 Globulin 3.80 H Albumin/Globulin Ratio 1.23 Triglycerides Level 201 H Cholesterol Level 241 H LDL Cholesterol, Calculated 153 HDL Cholesterol 48 Cholesterol/HDL Ratio 5.0 Phosphorus Level 3.7 Magnesium Level 2.2 Exam/Review of Systems Exam Vitals Vital Signs Date Temp Pulse Resp B/P (MAP) Pulse Ox O2 O2 Flow FiO2 Time Delivery Rate 09/01/18 98.6 86 18 127/61 96 08:00 (83) 08/31/18 Room Air 14:20 Intake and Output 08/31/18 08/31/18 09/01/18 1515:00 23:00 07:00 IntakeIntake Total 375 ml 775 ml OutputOutput Total 100 ml 100 ml BalanceBalance 275 ml 675 ml Results Results 24hrs Laboratory Tests Test 08/31/18 13:02 09/01/18 05:28 White Blood Count 7.2 4.9 # Red Blood Count 4.99 4.53 Hemoglobin 13.9 12.8 Hematocrit 42.7 38.9 Mean Corpuscular Volume 85.6 85.9 Mean Corpuscular Hemoglobin 27.9 L 28.3 L Mean Corpuscular Hemoglobin Concent 32.6 32.9 Red Cell Distribution Width 12.7 12.8 Platelet Count 370 334 Mean Platelet Volume 9.3 9.6 Immature Granulocytes % 0.300 0.200 Neutrophils % 63.4 55.8 Lymphocytes % 25.6 32.5 Monocytes % 9.6 9.7 Eosinophils % 0.3 0.8 Basophils % 0.8 1.0 Nucleated Red Blood Cells % 0.0 0.0 Immature Granulocytes # 0.020 0.010 Neutrophils # 4.6 2.8 Lymphocytes # 1.9 1.6 Monocytes # 0.7 0.5 Eosinophils # 0.0 0.0 Basophils # 0.1 0.1 Nucleated Red Blood Cells # 0.0 0.0 Sodium Level 142 143 Potassium Level 4.4 3.9 Chloride Level 104 108 Carbon Dioxide Level 29 28 Anion Gap 9 7 Blood Urea Nitrogen 14 17 Creatinine 0.65 0.66 Est Glomerular Filtrat Rate mL/min > 60 > 60 Glucose Level 125 111 Hemoglobin A1c 6.0 H Calcium Level 10.1 9.1 Total Bilirubin 0.6 Direct Bilirubin 0.00 Indirect Bilirubin 0.6 Aspartate Amino Transf (AST/SGOT) 35 Alanine Aminotransferase (ALT/SGPT) 41 Alkaline Phosphatase 115 Total Protein 8.5 H Albumin 4.7 Globulin 3.80 H Albumin/Globulin Ratio 1.23 Triglycerides Level 201 H Cholesterol Level 241 H LDL Cholesterol, Calculated 153 HDL Cholesterol 48 Cholesterol/HDL Ratio 5.0 Phosphorus Level 3.7 Magnesium Level 2.2 Medications Medication Current Medications IV Flush (NS 3 ml) 3 ml PER PROTOCOL IV ; Start 08/31/18 at 09:00 Ondansetron HCl (Zofran Inj) 4 mg Q6H PRN IV NAUSEA/VOMITING Last administered on 08/31/18 13:28; Admin Dose 4 MG; Start 08/31/18 at 09:00 Morphine Sulfate (morphine) 2 mg Q4H PRN IV .SEVERE PAIN 7-10 Last administered on 08/31/18 13:05; Admin Dose 2 MG; Start 08/31/18 at 09:00 Sodium Chloride 1,000 ml @ 75 mls/hr [id number] IV Last administered on 09/01/18 02:43; Admin Dose 75 MLS/HR; Start 08/31/18 at 13:30 INOCENCIO ROJO NP September 01, 2018 13:03
[2018-09-01 14:00] VITALS: BP 139/78; PULSE 86; RESP 18
[2018-09-01 20:00] VITALS: BP 124/68; PULSE 74; RESP 18
[2018-09-02 02:00] VITALS: BP 141/74; PULSE 76; RESP 17
[2018-09-02] MEDS: SOD CHLORIDE 0.9% 1,000 ML IV SCH ×2 (02:54→05:30)
--- NOTE | 2018-09-02 07:30 | CONS ---
Assessment/Plan Assessment/Plan Hospital Course (Demo Recall) Pt has passed stool after enema, and NG tube output is nearly absent. She is tolerating clear liquids Assessment/Plan (Daily) Resolving obstipation. DC NGT and advance to full liquid diet. Ambulate. Start Miralax Consider consult to GS for elective abdominal wall reconstruction ( Dr Ferrer?) Consultation Date/Type/Reason Admit Date/Time August 31, 2018 at 07:39 Date of Consultation: September 02, 2018 Type of Consult Colorectal surgery Reason for Consultation SBO Date/Time of Note DATE: 09/02/18 TIME: 07:14 Hx of Present Illness Pt is a well-known pt to me from a prior surgery about 4 yrs ago. She was referred to me by GS for complicated diverticulitis and she had already rec'd a diverting colostomy for perforated disease. I performed a complex colon resection, takedown of colostomy and repair of colo-vaginal fistula. She did well with this procedure, but an antecedent ventral hernia from her initial surgery persisted ( previous open wound, and infection) and worsened. She then had a very large ventral hernia and loss of domain of her abdominal wall. Following recovery from her surgery she then developed constipation and an inability to evacuate well due to the loss of her ability to push w/ her abdominal wall. This has been generally controlled w/ fiber, Miralax and an abdominal binder. She has been prviously referred to a GS for complex abdominal wall repair ( elective w/ mesh and poss lateral release), but he has yet to schedule the pt. Then, recently her constipation increased and she became obstipated and was essentially obstructed from philip and an inability to evacuate it. Enema give Wed night helped to evacuate the stool impaction and she is now improving. Constipation. sl low intestinal motility Constitutional: no complaints Eyes: no complaints Respiratory: no complaints Gastrointestinal: constipation Genitourinary: no complaints (Pt has been having chronic , recurrent UTI's and sees a urologist) Past Medical History Hx of diverticulitis Home Meds Active Scripts Pantoprazole* (Pantoprazole*) 40 Mg Tablet., 40 MG PO DAILY@06, #30 2 Refills Prov:ABDIAS BROWN 09/13/17 Reported Medications [Fiber] No Conflict Check 12/20/17 Alprazolam* (Alprazolam*) 0.5 Mg Tablet, 0.5 MG PO NEEDED PRN for ANXIETY, TAB 08/24/17 Gabapentin* (Gabapentin*) 100 Mg Capsule, 100 MG PO DAILY, #90 CAP 08/24/17 Medications Current Medications IV Flush (NS 3 ml) 3 ml PER PROTOCOL IV ; Start 08/31/18 at 09:00 Ondansetron HCl (Zofran Inj) 4 mg Q6H PRN IV NAUSEA/VOMITING Last administered on 08/31/18at 13:28; Admin Dose 4 MG; Start 08/31/18 at 09:00 Morphine Sulfate (morphine) 2 mg Q4H PRN IV .SEVERE PAIN 7-10 Last administered on 08/31/18at 13:05; Admin Dose 2 MG; Start 08/31/18 at 09:00 Sodium Chloride 1,000 ml @ 75 mls/hr [id number] IV Last administered on 09/02/18at 02:54; Admin Dose 75 MLS/HR; Start 08/31/18 at 13:30 Allergies: Coded Allergies: No Known Drug Allergies (Verified Allergy, Unknown, 12/20/17) Past Surgical History Abdominal surgery : 1. Urgent laparotomy w/ diverting colostomy ( here at [facility]. ? Dr Cui) 2. Laparotomy, left colon resection, colostomy closure, low colorectal anastomosis, repair of colo-vaginal fistula per Dr Prakash here at [facility] Past Surgical Hx: bowel resection Family History Significant Family History: no pertinent family hx Social History Alcohol Use: none Smoking Status: Never smoker Drug Use: none Exam/Review of Systems Exam Vitals Vital Signs Date Temp Pulse Resp B/P (MAP) Pulse Ox O2 O2 Flow FiO2 Time Delivery Rate 09/02/18 98.5 76 17 141/74 93 02:00 (96) 08/31/18 Room Air 14:20 Intake and Output 09/01/18 09/01/18 09/02/18 1515:00 23:00 07:00 IntakeIntake Total 240 ml OutputOutput Total 150 ml 50 ml BalanceBalance -150 ml 190 ml Constitutional: alert, oriented, well developed Respiratory: clear to auscultation Cardiovascular: regular rate and rhythm Gastrointestinal: soft, non-tender, bowel sounds (NG tube in place) Results Result Diagram: 09/01/1852709/01/18527 Medications Medication Current Medications IV Flush (NS 3 ml) 3 ml PER PROTOCOL IV ; Start 08/31/18 at 09:00 Ondansetron HCl (Zofran Inj) 4 mg Q6H PRN IV NAUSEA/VOMITING Last administered on 08/31/18 13:28; Admin Dose 4 MG; Start 08/31/18 at 09:00 Morphine Sulfate (morphine) 2 mg Q4H PRN IV .SEVERE PAIN 7-10 Last administered on 08/31/18 13:05; Admin Dose 2 MG; Start 08/31/18 at 09:00 Sodium Chloride 1,000 ml @ 75 mls/hr [id number] IV Last administered on 09/02/18 02:54; Admin Dose 75 MLS/HR; Start 08/31/18 at 13:30 KUMAR PRAKASH MD September 02, 2018 07:26
[2018-09-02 08:00] VITALS: BP 136/73; PULSE 65; RESP 18
[2018-09-02] MEDS ORDERED: POLYETHYLENE GLYCOL 17 GM PACKET PO SCH (09:00)
--- NOTE | 2018-09-02 11:46 | PDOCDIS ---
Discharge Instructions CONDITION [id number] Patient Condition: [id number] Stable HOME CARE INSTRUCTIONS: [id number] Your diet recommendation is: [id number] full liquis,if tolerates advance to soft FOLLOW UP/APPOINTMENTS Follow-up Plan Follow-up with Dr. Prakash in 2 weeks Name, Degree Luther Prakash MD Specialty Colon & Rectal Surgery Comments Office Address [address] [place] [address] Office Follow-up with in1 week Anand Ferrer MD Specialty General Surgery Comments Office Address [address] [place] [address] Office Follow up With primary care physician in 1 week INOCENCIO ROJO NP September 02, 2018 11:30
[2018-09-02] MEDS ORDERED: DOCU-144 PO (11:47)
[2018-09-02] MEDS ORDERED: POLY17PO6 PO (11:47)
--- NOTE | 2018-09-02 11:52 | DS ---
Date/Time of Note Date/Time of Note DATE: 09/02/18 TIME: 11:50 Discharge Summary Admission/Discharge Info Admit Date/Time August 31, 2018 at 07:39 Discharge Date/Time Discharge Diagnosis Abdominal pain /vomiting w/ possible small bowel obstruction. Resolved. Obstipation.stable Large ventral hernia, chronic. Patient Condition: Stable Consults Dr. Garza, colorectal surgery Procedures 08/31/2018: Small bowel x-ray FINDINGS: There is a nasogastric tube within the stomach. Dilated loops of small bowel in the left abdomen. Normal position, contour and mucosal pattern. The transit time of the contrast reaching to the colon is 2 hours. No evidence of small bowel obstruction. Large amount of stool is seen throughout the colon. IMPRESSION: No evidence of bowel obstruction. Hx of Present Illness This is a 63-year-old female with a history of multiple abdominal surgeries for diverticulitis including colostomy with latest explore lap April 2016 for residual diverticular disease, large ventral hernia which is inoperable, recurrent bowel obstructions, dyslipidemia, initially presented to [facility] with 1 day duration of generalized abdominal pain associated with multiple episodes of nonbilious/nonbloody vomiting. Patient denied fever, chills, bloody diarrhea, constipation, hematemesis, hematochezia, chest pain, palpitation, shortness of breath, headache, dizziness or other constitutional symptoms. Outside hospital work-up showed large ventral hernia containing several distended small bowel loops with air-fluid levels with small bowel obstruction suspected. She also had moderate to large amount of stool within the colon. There was no evidence of free air or fluid. There was no evidence of obstructive uropathy. Since initial labs unremarkable except for sugar 140. She did not have any leukocytosis or fevers. Patient was transferred to [facility] due to insurance capitation. Hospital Course 63 yo F w/ history of diverticulitis, multiple abdominal surgeries including colostomy,inoperable large ventral hernia,frequent bowel obstructions, transferred from outside hospital with sudden onset of diffuse abdominal pain found to have incarcerated ventral hernia with possible small bowel obstruction. She was seen by her original surgeon Dr. Garza who recommended NG tube d ecompression. She was also noted with obstipation requiring enema administration with good outcome. Small bowel x-ray did not show any further obstruction. NG tube was then clamped with no further drainage noted. Patient was then started on a clear diet which she was able to tolerate and then advance to full liquid diet. Patient did not require any pain medications. She was a ble to tolerate ambulation well. At this time, as per surgeon, patient is stable for discharge with outpatient follow-up. Cording to Dr. Garza, they will also consider consulting to a general surgeon for elective abdominal wall reconstruction which will be for outpatient discussion. Approximately 60 m spent on coordinating the discharge on this patient. Patient is seen in collaboration with Dr. Schafer. Home Meds Active Scripts Docusate Sodium* (Colace*) 100 Mg Capsule, 100 MG PO BID, #60 CAP Prov:ROJO,INOCENCIO V. PROGRAM AIDE 09/02/18 Polyethylene Glycol* (Miralax*) 17 Gm Powd.pack, 17 GM PO AM, #30 DOSE Prov:ROJO,INOCENCIO V. PROGRAM AIDE 09/02/18 Pantoprazole* (Pantoprazole*) 40 Mg Tablet., 40 MG PO DAILY@06, #30 2 Refills Prov:ABDIAS BROWN 09/13/17 Reported Medications [Fiber] No Conflict Check 12/20/17 Alprazolam* (Alprazolam*) 0.5 Mg Tablet, 0.5 MG PO NEEDED PRN for ANXIETY, TAB 08/24/17 Gabapentin* (Gabapentin*) 100 Mg Capsule, 100 MG PO DAILY, #90 CAP 08/24/17 Follow-up Plan Follow-up with Dr. Prakash in 2 weeks Name, Degree Luther Prakash MD Specialty Colon & Rectal Surgery Comments Office Address [address] [place] [address] [place] [id number] Office Follow up With primary care physician in 1 week Primary Care Provider Not On Staff Doctor Pending Labs Laboratory Tests Test 09/02/18 05:49 Sodium Level 143 mmol/L (135-144) Potassium Level 3.8 mmol/L (3.5-5.1) Chloride Level 108 mmol/L (97-110) Carbon Dioxide Level 27 mmol/L (21-31) Anion Gap 8 (5-13) Blood Urea Nitrogen 17 mg/dl (7-20) Creatinine 0.63 mg/dl (0.44-1.00) Est Glomerular Filtrat Rate mL/min > 60 mL/min (>60) Glucose Level 95 mg/dl (70-220) Calcium Level 8.9 mg/dl (8.4-10.2) INOCENCIO ROJO NP September 02, 2018 11:52
--- NOTE | 2018-09-02 13:10 | CONS ---
Assessment/Plan Assessment/Plan Hospital Course (Demo Recall) 1. Large ventral hernia status post multiple abdominal surgeries, -Discussed hernia repair with patient and patient interested in surgery. She can follow with us as outpatient, make an appointment with Dr. Ferrer's office. 2. Obstipation with recurrent SBO's (negative sbft) -Bowel regimen -As above 3. Obesity BMI: 29 -diet and exercise optimization -encourage weight loss Consultation Date/Type/Reason Admit Date/Time August 31, 2018 at 07:39 Date of Consultation: September 02, 2018 Type of Consult Surgical Reason for Consultation Hernia Requesting Provider: KUMAR PRAKASH MD Date/Time of Note DATE: 09/02/18 TIME: 12:59 Hx of Present Illness Hanane Apodaca is a 63-year-old woman with an extensive abdominal surgical history including complicated d perforated iverticulitis status post diverting ostomy, colon resection, takedown of colostomy and repair of colovaginal fistula performed by Dr. Garza. She currently has a large ventral hernia, occasional constipation with inability to push with her abdominal wall due to large ventral hernia, multiple small bowel obstructions. She is currently hospitalized for obstipation, was started on a bowel regimen and is currently having bowel movements. General surgery was asked to evaluate for ventral hernia repair. No recent complaints of fevers, chills, congested cough, nausea, vomiting, seizure, rash or skin changes. 12 point review of systems was performed and is negative except for as stated in HPI. Past Medical History Obesity Home Meds Active Scripts Docusate Sodium* (Colace*) 100 Mg Capsule, 100 MG PO BID, #60 CAP Prov:MOOKIE ROJODYA VRosy CHILD LIFE SPECIALIST 09/02/18 Polyethylene Glycol* (Miralax*) 17 Gm Powd.pack, 17 GM PO AM, #30 DOSE Prov:ROJO,INOCENCIO V. CHILD LIFE SPECIALIST 09/02/18 Pantoprazole* (Pantoprazole*) 40 Mg Tablet., 40 MG PO DAILY@06, #30 2 Refills Prov:ABDIAS BROWN 09/13/17 Reported Medications [Fiber] No Conflict Check 12/20/17 Alprazolam* (Alprazolam*) 0.5 Mg Tablet, 0.5 MG PO NEEDED PRN for ANXIETY, TAB 08/24/17 Gabapentin* (Gabapentin*) 100 Mg Capsule, 100 MG PO DAILY, #90 CAP 08/24/17 Medications Current Medications IV Flush (NS 3 ml) 3 ml PER PROTOCOL IV ; Start 08/31/18 at 09:00 Ondansetron HCl (Zofran Inj) 4 mg Q6H PRN IV NAUSEA/VOMITING Last administered on 08/31/18at 13:28; Admin Dose 4 MG; Start 08/31/18 at 09:00 Morphine Sulfate (morphine) 2 mg Q4H PRN IV .SEVERE PAIN 7-10 Last administered on 08/31/18at 13:05; Admin Dose 2 MG; Start 08/31/18 at 09:00 Sodium Chloride 1,000 ml @ 75 mls/hr [id number] IV Last administered on 09/02/18at 02:54; Admin Dose 75 MLS/HR; Start 08/31/18 at 13:30 Polyethylene Glycol (Miralax) 17 gm AM PO Last administered on 09/02/18 08:06; Admin Dose 17 GM; Start 09/02/18 at 09:00 Allergies: Coded Allergies: No Known Drug Allergies (Verified Allergy, Unknown, 12/20/17) Past Surgical History Abdominal surgery : 1. Urgent laparotomy w/ diverting colostomy ( here at [facility]. ? Dr Cui) 2. Laparotomy, left colon resection, colostomy closure, low colorectal anastomosis, repair of colo-vaginal fistula per Dr Prakash Past Surgical Hx: bowel resection Family History Significant Family History: no pertinent family hx Social History Alcohol Use: none Smoking Status: Never smoker Drug Use: none Exam/Review of Systems Exam Vitals Vital Signs Date Temp Pulse Resp B/P (MAP) Pulse Ox O2 O2 Flow FiO2 Time Delivery Rate 09/02/18 98.6 65 18 136/73 96 08:00 (94) 08/31/18 Room Air 14:20 Intake and Output 09/01/18 09/01/18 09/02/18 1515:00 23:00 07:00 IntakeIntake Total 240 ml 1000 ml OutputOutput Total 150 ml 50 ml BalanceBalance -150 ml 190 ml 1000 ml Constitutional: alert, oriented, well developed Psych: nl mood/affect; No anxiety Head: normocephalic, atraumatic Eyes: nl conjunctiva, EOMI, nl lids, nl sclera ENMT: nl external ears & nose, nl lips & teeth Neck: supple, non-tender Respiratory: normal air movement; No congested cough Cardiovascular: regular rate and rhythm; No edema Gastrointestinal: soft, other (Large ventral hernia with scarring); No distended, No tender Genitourinary - Female: nl external genitalia Musculoskeletal: nl extremities to inspection Extremities: normal pulses Neurological: nl mental status, nl speech, nl strength Skin: No rash or lesions Lymph: nl lymph nodes Results Result Diagram: 09/01/1828 09/02/18 0549 Results 24hrs Laboratory Tests Test 09/02/18 05:49 Sodium Level 143 Potassium Level 3.8 Chloride Level 108 Carbon Dioxide Level 27 Anion Gap 8 Blood Urea Nitrogen 17 Creatinine 0.63 Est Glomerular Filtrat Rate mL/min > 60 Glucose Level 95 Calcium Level 8.9 Medications Medication Current Medications IV Flush (NS 3 ml) 3 ml PER PROTOCOL IV ; Start 08/31/18 at 09:00 Ondansetron HCl (Zofran Inj) 4 mg Q6H PRN IV NAUSEA/VOMITING Last administered on 08/31/18at 13:28; Admin Dose 4 MG; Start 08/31/18 at 09:00 Morphine Sulfate (morphine) 2 mg Q4H PRN IV .SEVERE PAIN 7-10 Last administered on 08/31/18 13:05; Admin Dose 2 MG; Start 08/31/18 at 09:00 Sodium Chloride 1,000 ml @ 75 mls/hr [id number] IV Last administered on 09/02/18 02:54; Admin Dose 75 MLS/HR; Start 08/31/18 at 13:30 Polyethylene Glycol (Miralax) 17 gm AM PO Last administered on 09/02/18 08:06; Admin Dose 17 GM; Start 09/02/18 at 09:00 ALFREDO MORA NP September 02, 2018 13:10
[2018-09-02 14:00] VITALS: BP 143/76; PULSE 90; RESP 18
== END 2018-09-02 18:22 | disposition home or self-care (01) | DRG 395 ==
LOC: PP2 07:39
PROVIDERS: ADMIT Internal Medicine; ATTEND Internal Medicine
DX: K43.6 Other and unspecified ventral hernia with obstruction, without gangrene (principal); K43.9 Ventral hernia without obstruction or gangrene; K59.00 Constipation, unspecified; E66.9 Obesity, unspecified; Z68.29 Body mass index [BMI] 29.0-29.9, adult
CPT/HCPCS: 74250; 80048; 80053; 80061; 83036; 83735; 84100; 85025; 87081; J2270; J2405; J7030; Q9967

== ENCOUNTER 2018-12-18 23:47 | Inpatient (IN) | payer BC ==
[~2018-12-18] VITALS: Ht 154.9 cm; Wt 77.0 kg
[~2018-12-18 23:47] MED LIST changes: +DOCU-144 PO; +LEVO250T9 PO; +OMEP20CA17 ORAL; +ONDA4TAB8 PO; +POLY17PO6 PO; +[UNRECOGNIZED DRUG - REMARK]; +gabapentin; +omeprazole; +simvastatin; +xanax
[2018-12-18 23:50] VITALS: Ht 154.9 cm; Wt 77.0 kg
[2018-12-19] MEDS ORDERED: KETOROLAC 30 MG INJ IV STA (01:01)
[2018-12-19] MEDS ORDERED: ONDANSETRON 4 MG INJ IV STA (01:01)
[2018-12-19] MEDS ORDERED: ONDANSETRON 4 MG INJ IV PRN (03:00)
[2018-12-19] MEDS ORDERED: ACETAMINOPHEN 325 MG TAB PO PRN (03:00)
[2018-12-19] MEDS ORDERED: NACL 0.9% 3 ML SYG IV SCH (04:30)
[2018-12-19] MEDS: morphine 2 MG INJ IV PRN ×3 (04:46→13:32)
[2018-12-19] MEDS: SOD CHLORIDE 0.9% 1,000 ML IV SCH ×2 (05:41→14:42)
[2018-12-19] MEDS: ONDANSETRON 4 MG INJ IV PRN ×3 (06:14→21:19)
[2018-12-19 08:00] VITALS: BP 142/73; PULSE 86; RESP 20
[2018-12-19] MEDS: CEFTRIAXONE 1 GM/50 ML (PMX) 50 ML IVPB SCH (14:42)
[2018-12-19 15:02] VITALS: BP 125/72; PULSE 84; RESP 20
[2018-12-19 20:55] VITALS: BP 142/77; PULSE 86; RESP 19
[2018-12-19] MEDS: HYDROmorphONE 1 MG/ML SYG IV PRN (21:17)
[2018-12-20 02:00] VITALS: BP 119/66; PULSE 67; RESP 17
[2018-12-20] MEDS: ONDANSETRON 4 MG INJ IV PRN ×3 (05:01→22:17)
[2018-12-20] MEDS: SOD CHLORIDE 0.9% 1,000 ML IV SCH ×3 (05:01→22:16)
[2018-12-20] MEDS: HYDROmorphONE 1 MG/ML SYG IV PRN ×3 (05:02→22:17)
[2018-12-20 07:40] VITALS: BP 119/65; PULSE 84; RESP 19
[2018-12-20] MEDS ORDERED: IOHEXOL 300MG/ML 150 ML BTL ONE ×2 (14:06)
[2018-12-20 15:57] VITALS: BP 122/74; PULSE 91; RESP 20
[2018-12-20] MEDS: CEFTRIAXONE 1 GM/50 ML (PMX) 50 ML IVPB SCH (16:11)
[2018-12-20 19:30] VITALS: BP 138/75; PULSE 69; RESP 18
[2018-12-21 02:04] VITALS: BP 133/73; PULSE 72; RESP 18
[2018-12-21] MEDS: SOD CHLORIDE 0.9% 1,000 ML IV SCH ×2 (03:01→14:25)
[2018-12-21] MEDS: ONDANSETRON 4 MG INJ IV PRN (06:25)
[2018-12-21] MEDS: HYDROmorphONE 1 MG/ML SYG IV PRN (06:26)
[2018-12-21 10:04] VITALS: BP 138/74; PULSE 70; RESP 19
[2018-12-21] MEDS: CEFTRIAXONE 1 GM/50 ML (PMX) 50 ML IVPB SCH (14:30)
[2018-12-21 19:38] VITALS: BP 129/71; PULSE 75; RESP 18
[2018-12-21] MEDS: ACETAMINOPHEN 325 MG TAB PO PRN (21:29)
[2018-12-21] MEDS ORDERED: ALPRAZOLAM 0.5 MG TAB PO PRN ×2 (22:00→22:30)
[2018-12-21] MEDS: GABAPENTIN 100 MG CAP PO SCH (22:26)
[2018-12-22 01:56] VITALS: BP 127/63; PULSE 78; RESP 18
[2018-12-22 08:23] VITALS: BP 142/73; PULSE 71; RESP 18
[2018-12-22] MEDS: GABAPENTIN 100 MG CAP PO SCH (08:25)
[2018-12-22] MEDS ORDERED: GABAPENTIN 100 MG CAP PO SCH (09:00)
[2018-12-22] MEDS: CEFTRIAXONE 1 GM/50 ML (PMX) 50 ML IVPB SCH (14:45)
[2018-12-22 15:25] VITALS: BP 133/58; PULSE 73; RESP 18
[2018-12-22] MEDS: ACETAMINOPHEN 325 MG TAB PO PRN (16:03)
== END 2018-12-22 17:05 | disposition home or self-care (01) | DRG 389 ==
LOC: E/R 23:47 → MS1 12-19 02:43 → E/R 12-19 23:47
PROVIDERS: ADMIT Family Medicine; ATTEND Internal Medicine
DX: K56.51 Intestinal adhesions [bands], with partial obstruction (principal); N39.0 Urinary tract infection, site not specified; E66.9 Obesity, unspecified; Z68.32 Body mass index [BMI] 32.0-32.9, adult
CPT/HCPCS: 36415; 71045; 74018; 74176; 74250; 80048; 80053; 80061; 81001; 83036; 83690; 83735; 84443; 84484; 85025; 93005; 96374; 96375; J0696; J1170; J1885; J2270; J2405; J7030; Q9967

== ENCOUNTER 2019-01-05 22:10 | Emergency (ER) | payer BC ==
[~2019-01-05] VITALS: Ht 165.1 cm; Wt 76.1 kg
[~2019-01-05 22:10] MED LIST changes: -DOCU-144 PO; -FIBER; -PANT40TA4 PO; -POLY17PO6 PO
[2019-01-05 22:12] VITALS: Ht 165.1 cm; Wt 76.1 kg
[2019-01-06] MEDS ORDERED: MINERAL OIL 133 ML ENEMA PR ONE (00:30)
[2019-01-06 02:00] VITALS: BP 124/82; PULSE 60; RESP 16
== END 2019-01-06 03:01 | disposition home or self-care (01) ==
LOC: E/R 22:10
DX: K59.00 Constipation, unspecified (principal); R40.2142 Coma scale, eyes open, spontaneous, at arrival to emergency department; R40.2252 Coma scale, best verbal response, oriented, at arrival to emergency department; R40.2362 Coma scale, best motor response, obeys commands, at arrival to emergency department; R11.2 Nausea with vomiting, unspecified; D64.9 Anemia, unspecified
CPT/HCPCS: 36415; 74176; 80053; 81003; 83690; 85025; Z7502; Z7610